=== PATIENT | female | born 1950 | race American Indian/Alaskan Native ===

== ENCOUNTER 2021-07-28 11:28 | Inpatient (IN) | payer MEDICARE ==
[2021-07-28] MEDS ORDERED: SODIUM CHLORIDE 0.9% 1000 ML IV SOLN IV ONE (11:52)
--- NOTE | 2021-07-28 11:57 | Emergency Department Report ---
ED General Adult HPI - General Chief complaint: Weakness Stated complaint: LOW BLOOD PRESSURE Time Seen by Provider: 07/28/21 11:52 Source: EMS Mode of arrival: Stretcher Limitations: Physical Limitation - History of Present Illness Initial comments: Patient is 70 years old female with history of end-stage renal disease on hemodialysis, hypertension, advanced dementia and Parkinson disease. Patient brought to the emergency room via EMS from a local dialysis center for evaluation of low blood pressure. EMS reported that dialysis center informed them that her initial blood pressure was 80/42. According to the dialysis center patient is not communicating. Upon arrival to the ER patient is alert however she is not communicating. Most of the history is from EMS and patient records. Sepsis protocol immediately initiated and patient started on normal saline. -: This morning - Related Data Allergies Allergy/AdvReac Type Severity Reaction Status Date / Time No Known Allergies Allergy Verified 07/28/21 11:44 ED Review of Systems ROS: Stated complaint: LOW BLOOD PRESSURE Other details as noted in HPI Comment: Unobtainable due to pts medical conditions ED Physical Exam - General Limitations: Physical Limitation General appearance: alert, in no apparent distress - Head Head exam: Present: atraumatic, normocephalic, normal inspection - ENT ENT exam: Present: mucous membranes dry - Neck Neck exam: Present: normal inspection, full ROM. Absent: tenderness, meningismus - Respiratory Respiratory exam: Present: rales. Absent: respiratory distress, wheezes, decreased breath sounds, prolonged expiratory - Cardiovascular Cardiovascular Exam: Present: regular rate, normal rhythm, normal heart sounds - GI/Abdominal GI/Abdominal exam: Present: soft. Absent: distended, tenderness, guarding, rebound, rigid, normal bowel sounds, diminished bowel sounds, organomegaly, mass, bruit, pulsatile mass - Back Exam Back exam: Absent: CVA tenderness (R), CVA tenderness (L) - Neurological Exam Neurological exam: Present: alert - Psychiatric Psychiatric exam: Present: flat affect - Skin Skin exam: Present: warm ED Course Vital Signs 07/28/21 07/28/21 07/28/21 11:43 12:06 12:15 Temperature 98.7 F Pulse Rate 84 79 86 Respiratory 12 18 Rate Blood Pressure 98/72 Blood Pressure 98/66 [Left] O2 Sat by Pulse 99 98 Oximetry 07/28/21 07/28/21 07/28/21 12:31 12:45 13:01 Temperature Pulse Rate 77 80 67 Respiratory 13 22 20 Rate Blood Pressure 70/50 95/65 99/68 Blood Pressure [Left] O2 Sat by Pulse 97 100 92 Oximetry 07/28/21 07/28/21 07/28/21 13:15 13:31 13:45 Temperature Pulse Rate 84 82 74 Respiratory 20 17 15 Rate Blood Pressure 99/68 108/69 108/69 Blood Pressure [Left] O2 Sat by Pulse 91 97 98 Oximetry 07/28/21 07/28/21 07/28/21 14:01 14:15 14:31 Temperature Pulse Rate 88 83 80 Respiratory 13 19 19 Rate Blood Pressure 106/70 106/70 122/79 Blood Pressure [Left] O2 Sat by Pulse 100 92 95 Oximetry 07/28/21 07/28/21 07/28/21 14:45 15:01 16:21 Temperature Pulse Rate 77 89 75 Respiratory 20 14 19 Rate Blood Pressure 122/79 126/79 116/72 Blood Pressure [Left] O2 Sat by Pulse 95 99 Oximetry 07/28/21 16:23 Temperature Pulse Rate Respiratory Rate Blood Pressure Blood Pressure [Left] O2 Sat by Pulse 97 Oximetry ED Medical Decision Making - Lab Data Result diagrams: 07/28/21 12:20 07/28/21 12:20 - Medical Decision Making Patient is 70 years old female with history of end-stage renal disease on hemodialysis, hypertension, advanced dementia and Parkinson disease. Patient brought to the emergency room via EMS from a local dialysis center for evaluati on of low blood pressure. EMS reported that dialysis center informed them that her initial blood pressure was 80/42. According to the dialysis center patient is not communicating. Upon arrival to the ER patient is alert however she is not communicating. Most of the history is from EMS and patient records. Sepsis protocol immediately initiated and patient started on normal saline. Patient received normal saline. Labs reviewed and is unremarkable except for chronic kidney function elevation. Potassium is unremarkable. Urinalysis showed significant UTI with white blood cells of more than 180. Patient received Rocephin 1 g IV. I discussed the patient with Dr. Sarabia, he agreed to admit the patient to medical service for further management. Critical Care Time: Yes Critical care time in (mins) excluding proc time.: 35 Critical care attestation.: If time is entered above; I have spent that time in minutes in the direct care of this critically ill patient, excluding procedure time. ED Disposition Clinical Impression: Acute hypotension, UTI (urinary tract infection) Disposition: 09 ADMITTED INPATIENT Is pt being admited?: Yes Condition: Stable
--- NOTE | 2021-07-28 12:36 | XRay Report ---
CHEST 1 VIEW 07/28/2021 12:15 PM INDICATION / CLINICAL INFORMATION: sepsis. COMPARISON: None available. FINDINGS: SUPPORT DEVICES: None. HEART / MEDIASTINUM: No significant abnormality. LUNGS / PLEURA: No significant pulmonary or pleural abnormality. No pneumothorax. ADDITIONAL FINDINGS: No significant additional findings. IMPRESSION: 1. No acute findings. Signer Name: Yeyo Carrera DO Signed: 07/28/2021 12:32 PM Workstation Name: [id number]
[2021-07-28 12:42] LABS: Basophils % (Auto) 1.3 % (0.0-1.8); Hematocrit 28.4 % (30.3-42.9); Hemoglobin 9.1 gm/dl (10.1-14.3); Lymphocytes # (Auto) 0.6 K/mm3 (1.2-5.4); Lymphocytes % (Auto) 16.2 % (13.4-35.0); Mean Corpuscular HGB Conc 32 % (30-34); Mean Corpuscular Volume 102 fl (79-97); Monocytes # (Auto) 0.4 K/mm3 (0.0-0.8); Monocytes % (Auto) 10.4 % (0.0-7.3); Platelet Count 132 K/mm3 (140-440); Red Cell Distribution Width 13.9 % (13.2-15.2)
[2021-07-28 13:05] LABS: Albumin 3.9 g/dL (3.9-5); Blood Urea Nitrogen 37 mg/dL (7-17); Calcium 9.2 mg/dL (8.4-10.2); Hemolysis Index 14
[2021-07-28 13:07] LABS: Alanine Aminotransferase < 5 units/L (7-56); BUN/Creatinine Ratio 4
[2021-07-28 13:45] LABS: Bacteria,Urine 4+ /HPF (Negative); Bilirubin,Urine NEG (Negative); Blood,Urine SM (Negative); Color,Urine Yellow (Yellow); Urobilinogen,Urine < 2.0 mg/dL (<2.0)
[2021-07-28 13:48] LABS: WBC,Urine > 182.0 /HPF (0.0-6.0)
[2021-07-28] MEDS ORDERED: cefTRIAXone/NS 1 GM/50 ML 1 GM/50 ML BAG IV ONE (13:52)
--- NOTE | 2021-07-28 16:01 | Cat Scan Report ---
CT ABDOMEN AND PELVIS WITHOUT CONTRAST HISTORY: ABDOMINAL PAIN. COMPARISON: None. TECHNIQUE: CT images of the abdomen and pelvis were obtained without administration of intravenous co ntrast. All CT scans at this location are performed using CT dose reduction for ALARA by means of au tomated exposure control. FINDINGS: Lungs/bones: Lung bases are clear. There are degenerative changes in the spine and pelvis with no ac [place] osseous abnormality. There is grade 1 anterolisthesis of L4 on L5. Abdomen/pelvis: Gallbladder is surgically absent. The liver is enlarged but otherwise unremarkable. T he spleen, pancreas, adrenals, and proximal GI tract appear unremarkable. There is bilateral renal at rophy with simple cyst in the mid to lower pole the right. Urinary bladder is unremarkable. Uterus is surgically absent. No pelvic free fluid. No acute colonic abnormality identified. The appendix is normal. IMPRESSION: 1. No acute abnormality identified. 2. Incidental findings as above. Signer Name: Kwesi Lara MD Signed: 07/28/2021 3:57 PM Workstation Name: [id number]
--- NOTE | 2021-07-28 22:53 | History and Physical Report ---
History of Present Illness Date of examination: 07/28/21 Date of admission: 07/28/2021 Chief complaint: Hypotension Sent from hemodialysis center History of present illness: 70-year-old female with history of end-stage renal disease on hemodialysis, hypertension, advanced dementia and Parkinson's disease sent from local hemodialysis center for evaluation of low blood pressure. Evaluated during the dialysis blood pressure dropped to 70/40 and was sent here for evaluation. Patient is slightly altered. Patient is alert but noncommunicative. No fever or chills. ED course: Patient continued to have low blood pressure and urinary tract infection. Patient was started on antibiotics and IV fluids to bring the blood pressure up. Patient immediately admitted for 24 hours to 48 hours. No fever or chills. Past History Past Medical History: ESRD, hypertension, other (Parkinson's disease, dementia) Past Surgical History: Other (Emergency room) Social history: full code (Lives in retirement), other Family history: hypertension Medications and Allergies Allergies Allergy/AdvReac Type Severity Reaction Status Date / Time No Known Allergies Allergy Verified 07/28/21 11:44 Home Medications Medication Instructions Recorded Confirmed Last Taken Type Dexamethasone 6 mg PO DAILY 07/29/21 07/29/21 Unknown History Dialyvite with Zinc Tablet 07/29/21 Unknown History Molnupiravir 400 mg PO BID 07/29/21 07/29/21 Unknown History Vitamin C 500 mg PO DAILY 07/29/21 07/29/21 Unknown History Vitamin D3 1,000 unit PO DAILY 07/29/21 07/29/21 Unknown History Review of Systems All systems: negative Cardiovascular: other (Low blood pressure) Neurological: memory loss, other (Rest tremors) Exam - Constitutional Vitals: Temp Pulse Resp BP Pulse Ox 99.3 F 86 26 H 104/64 95 07/28/21 20:20 07/28/21 20:20 07/28/21 20:20 07/28/21 20:20 07/28/21 20:20 General appearance: Present: no acute distress, well-nourished - EENT Eyes: Present: PERRL ENT: hearing intact, clear oral mucosa - Neck Neck: Present: supple, normal ROM - Respiratory Respiratory effort: normal Respiratory: bilateral: CTA - Cardiovascular Heart rate: 76 Rhythm: regular Heart Sounds: Present: S1 & S2. Absent: rub, click - Extremities Extremities: no ischemia, pulses intact, pulses symmetrical, No edema Peripheral Pulses: within normal limits - Abdominal General gastrointestinal: Present: soft, non-tender, non-distended, normal bowel sounds Female genitourinary: Present: normal - Integumentary Integumentary: Present: clear, warm, dry - Musculoskeletal Musculoskeletal: generalized weakness - Psychiatric Psychiatric: other (Alert but not oriented) - Neurologic Neurologic: CNII-XII intact, moves all extremities - Allied Health Allied health notes reviewed: nursing, case management Results - Labs CBC & Chem 7: 07/28/21 12:20 07/28/21 12:20 Labs: Laboratory Last Values WBC 3.4 K/mm3 (4.5-11.0) L 07/28/21 12:20 RBC 2.80 M/mm3 (3.65-5.03) L 07/28/21 12:20 Hgb 9.1 gm/dl (10.1-14.3) L 07/28/21 12:20 Hct 28.4 % (30.3-42.9) L 07/28/21 12:20 MCV 102 fl (79-97) H 07/28/21 12:20 MCH 33 pg (28-32) H 07/28/21 12:20 MCHC 32 % (30-34) 07/28/21 12:20 RDW 13.9 % (13.2-15.2) 07/28/21 12:20 Plt Count 132 K/mm3 (140-440) L 07/28/21 12:20 Lymph % (Auto) 16.2 % (13.4-35.0) 07/28/21 12:20 [place] % (Auto) 10.4 % (0.0-7.3) H 07/28/21 12:20 Eos % (Auto) 0.0 % (0.0-4.3) 07/28/21 12:20 Baso % (Auto) 1.3 % (0.0-1.8) 07/28/21 12:20 Lymph # (Auto) 0.6 K/mm3 (1.2-5.4) L 07/28/21 12:20 [place] # (Auto) 0.4 K/mm3 (0.0-0.8) 07/28/21 12:20 Eos # (Auto) 0.0 K/mm3 (0.0-0.4) 07/28/21 12:20 Baso # (Auto) 0.0 K/mm3 (0.0-0.1) 07/28/21 12:20 Seg Neutrophils % 72.1 % (40.0-70.0) H 07/28/21 12:20 Seg Neutrophils # 2.5 K/mm3 (1.8-7.7) 07/28/21 12:20 APTT 36.7 Sec. (24.2-36.6) H 07/28/21 12:20 Sodium 138 mmol/L (137-145) 07/28/21 12:20 Potassium 4.4 mmol/L (3.6-5.0) 07/28/21 12:20 Chloride 95.7 mmol/L (98-107) L 07/28/21 12:20 Carbon Dioxide 28 mmol/L (22-30) 07/28/21 12:20 Anion Gap 19 mmol/L 07/28/21 12:20 BUN 37 mg/dL (7-17) H 07/28/21 12:20 Creatinine 8.3 mg/dL (0.6-1.2) H 07/28/21 12:20 Estimated GFR 5 ml/min 07/28/21 12:20 BUN/Creatinine Ratio 4 % 07/28/21 12:20 Glucose 91 mg/dL (65-100) 07/28/21 12:20 Lactic Acid 1.40 mmol/L (0.7-2.0) 07/28/21 12:20 Calcium 9.2 mg/dL (8.4-10.2) 07/28/21 12:20 Total Bilirubin 0.20 mg/dL (0.1-1.2) 07/28/21 12:20 AST 33 units/L (5-40) 07/28/21 12:20 ALT < 5 units/L (7-56) L 07/28/21 12:20 Alkaline Phosphatase 93 units/L (35-129) 07/28/21 12:20 Total Protein 7.3 g/dL (6.3-8.2) 07/28/21 12:20 Albumin 3.9 g/dL (3.9-5) 07/28/21 12:20 Albumin/Globulin Ratio 1.1 % 07/28/21 12:20 Urine Color Yellow (Yellow) 07/28/21 Unknown Urine Turbidity Turbid (Clear) 07/28/21 Unknown Urine pH 6.0 (5.0-7.0) 07/28/21 Unknown Ur Specific [place] 1.014 (1.003-1.030) 07/28/21 Unknown Urine Protein 100 mg/dl mg/dL (Negative) 07/28/21 Unknown Urine Glucose (UA) Neg mg/dL (Negative) 07/28/21 Unknown Urine Ketones Tr mg/dL (Negative) 07/28/21 Unknown Urine Blood Sm (Negative) 07/28/21 Unknown Urine Nitrite Neg (Negative) 07/28/21 Unknown Urine Bilirubin Neg (Negative) 07/28/21 Unknown Urine Urobilinogen < 2.0 mg/dL (<2.0) 07/28/21 Unknown Ur Leukocyte Esterase Lg (Negative) 07/28/21 Unknown Urine WBC (Auto) > 182.0 /HPF (0.0-6.0) H 07/28/21 Unknown Urine RBC (Auto) 10.0 /HPF (0.0-6.0) 07/28/21 Unknown Urine Bacteria (Auto) 4+ /HPF (Negative) 07/28/21 Unknown Urine WBC Clumps 3+ /HPF 07/28/21 Unknown Short CBC 07/28/21 Range/Units 12:20 WBC 3.4 L (4.5-11.0) K/mm3 Hgb 9.1 L (10.1-14.3) gm/dl Hct 28.4 L (30.3-42.9) % Plt Count 132 L (140-440) K/mm3 BMP 07/28/21 12:20 Sodium 138 Potassium 4.4 Chloride 95.7 L Carbon Dioxide 28 BUN 37 H Creatinine 8.3 H Glucose 91 Calcium 9.2 Liver Function 07/28/21 Range/Units 12:20 Total Bilirubin 0.20 (0.1-1.2) mg/dL AST 33 (5-40) units/L ALT < 5 L (7-56) units/L Alkaline Phosphatase 93 (35-129) units/L Albumin 3.9 (3.9-5) g/dL Urine 07/28/21 Range/Units Unknown Urine Color Yellow (Yellow) Urine pH 6.0 (5.0-7.0) Ur Specific [place] 1.014 (1.003-1.030) Urine Protein 100 mg/dl (Negative) mg/dL Urine Glucose (UA) Neg (Negative) mg/dL Short CBC 07/28/21 Range/Units 12:20 WBC 3.4 L (4.5-11.0) K/mm3 Hgb 9.1 L (10.1-14.3) gm/dl Hct 28.4 L (30.3-42.9) % Plt Count 132 L (140-440) K/mm3 BMP 07/28/21 12:20 Sodium 138 Potassium 4.4 Chloride 95.7 L Carbon Dioxide 28 BUN 37 H Creatinine 8.3 H Glucose 91 Calcium 9.2 Liver Function 07/28/21 Range/Units 12:20 Total Bilirubin 0.20 (0.1-1.2) mg/dL AST 33 (5-40) units/L ALT < 5 L (7-56) units/L Alkaline Phosphatase 93 (35-129) units/L Albumin 3.9 (3.9-5) g/dL Urine 07/28/21 Range/Units Unknown Urine Color Yellow (Yellow) Urine pH 6.0 (5.0-7.0) Ur Specific [place] 1.014 (1.003-1.030) Urine Protein 100 mg/dl (Negative) mg/dL Urine Glucose (UA) Neg (Negative) mg/dL Microbiology: Microbiology 07/28/21 13:07 Peripheral/Venous Blood Culture - Preliminary Culture in Progress 07/28/21 13:07 Peripheral/Venous Blood Culture - Preliminary Culture in Progress - Imaging and Cardiology EKG: report reviewed (Sinus rhythm no acute ST-T wave changes) Chest x-ray: report reviewed (No acute findings) Assessment and Plan Advance Directives: Yes (Full code) VTE prophylaxis?: Chemical Plan of care discussed with patient/family: Yes - Patient Problems (1) SIRS (systemic inflammatory response syndrome) Current Visit: Yes Status: Acute Plan to address problem: Patient on IV ceftriaxone for urinary tract infection Urine WBCs more than 180. (2) Acute hypotension Current Visit: Yes Status: Acute Plan to address problem: IV fluids for now Possible increase ultrafiltration (3) UTI (urinary tract infection) Current Visit: Yes Status: Acute Qualifiers: Urinary tract infection type: acute cystitis Plan to address problem: Initiated on IV ceftriaxone every 24 hours pending urine cultures (4) End stage renal disease Current Visit: Yes Status: Chronic Plan to address problem: Continue hemodialysis as per schedule Nephrology consulted (5) Anemia Current Visit: Yes Status: Chronic Qualifiers: Anemia type: due to chronic kidney disease Chronic kidney disease stage: on chronic dialysis Qualified Code(s): N18.6 - End stage renal disease; D63.1 - Anemia in chronic kidney disease; Z99.2 - Dependence on renal dialysis Plan to address problem: Epogen as per nephrology (6) DVT prophylaxis Current Visit: Yes Status: Acute Plan to address problem: On heparin and GI prophylaxis (7) Advance care planning Current Visit: Yes Status: Acute Plan to address problem: Disease education conducted, care plan discussed, diagnosis, prognosis discussed. Patient is full code. Patient acknowledges understanding and agreement with care plan. +30 minutes.
[2021-07-28] MEDS ORDERED: MORPHINE 2 MG/1 ML INJ IV PRN (22:55)
[2021-07-28] MEDS ORDERED: ONDANSETRON 4 MG/2 ML INJ IV PRN (22:55)
[2021-07-28] MEDS: HEPARIN 5,000 UNIT/1 ML VIAL SUB-Q SCH (23:51)
[2021-07-29] MEDS: ACETAMINOPHEN 325 MG TAB PO PRN (06:30)
[2021-07-29 07:38] LABS: Basophils % (Auto) 0.4 % (0.0-1.8); Hematocrit 25.8 % (30.3-42.9); Hemoglobin 8.5 gm/dl (10.1-14.3); Lymphocytes # (Auto) 0.6 K/mm3 (1.2-5.4); Lymphocytes % (Auto) 9.9 % (13.4-35.0); Mean Corpuscular HGB Conc 33 % (30-34); Mean Corpuscular Volume 101 fl (79-97); Monocytes # (Auto) 0.4 K/mm3 (0.0-0.8); Monocytes % (Auto) 6.3 % (0.0-7.3); Platelet Count 123 K/mm3 (140-440); Red Blood Count 2.55 M/mm3 (3.65-5.03); Red Cell Distribution Width 13.5 % (13.2-15.2)
--- NOTE | 2021-07-29 09:07 | Progress Note ---
Assessment and Plan Assessment and plan: #Systemic inflammatory response syndrome-improving #Urinary tract infection -WBC count wnl, tachycardia, tachypnea -Urine WBCs >180, 4+ bacteria, lg LE; will treat due to patient mental status -continue rocephin x 3 doses -BCx collected, growth pending #Acute hypotension-resolved -BP now wnl, will continue IVFs with caution #End stage renal disease requiring HD -HD on TTS schedule -Nephrology following, assistance appreciated #Anemia-stable -likely secondary to ESRD -epogen with dialysis -will transfuse for Hgb less than 7 #History of dementia #History of Parkinson's disease -Stable -Follow-up with neurology outpatient History Interval history: No acute events overnight per nursing. Patient alert and attempts to speak but nothing comes out. She denied pain with head shake. No discomfort at this time. Hospitalist Physical - Physical exam Narrative exam: GENERAL: Thin elderly woman. In no acute distress. HEENT: NC in place @2lpm NECK: Supple. CHEST/LUNGS: CTAB on room air HEART/CARDIOVASCULAR: RRR. No murmur, rubs or gallops appreciated. ABDOMEN: +BS. NT/ND. SKIN: No rashes noted. NEURO: Unable to assess. MUSCULOSKELETAL: No joint effusion EXTREMITIES: No cyanosis, clubbing or edema. PSYCH: Unable to assess - Constitutional Vitals: Temp Pulse Resp BP Pulse Ox 99.3 F 67 15 111/70 96 07/28/21 20:20 07/29/21 01:53 07/29/21 01:31 07/29/21 01:31 07/29/21 01:53 General appearance: Present: no acute distress, well-nourished Results - Labs CBC & Chem 7: 07/29/21 06:37 07/28/21 12:20 Labs: Laboratory Last Values WBC 6.4 K/mm3 (4.5-11.0) 07/29/21 06:37 RBC 2.55 M/mm3 (3.65-5.03) L 07/29/21 06:37 Hgb 8.5 gm/dl (10.1-14.3) L 07/29/21 06:37 Hct 25.8 % (30.3-42.9) L 07/29/21 06:37 MCV 101 fl (79-97) H 07/29/21 06:37 MCH 33 pg (28-32) H 07/29/21 06:37 MCHC 33 % (30-34) 07/29/21 06:37 RDW 13.5 % (13.2-15.2) 07/29/21 06:37 Plt Count 123 K/mm3 (140-440) L 07/29/21 06:37 Lymph % (Auto) 9.9 % (13.4-35.0) L 07/29/21 06:37 [place] % (Auto) 6.3 % (0.0-7.3) 07/29/21 06:37 Eos % (Auto) 0.0 % (0.0-4.3) 07/29/21 06:37 Baso % (Auto) 0.4 % (0.0-1.8) 07/29/21 06:37 Lymph # (Auto) 0.6 K/mm3 (1.2-5.4) L 07/29/21 06:37 [place] # (Auto) 0.4 K/mm3 (0.0-0.8) 07/29/21 06:37 Eos # (Auto) 0.0 K/mm3 (0.0-0.4) 07/29/21 06:37 Baso # (Auto) 0.0 K/mm3 (0.0-0.1) 07/29/21 06:37 Seg Neutrophils % 83.4 % (40.0-70.0) H 07/29/21 06:37 Seg Neutrophils # 5.3 K/mm3 (1.8-7.7) 07/29/21 06:37 APTT 36.7 Sec. (24.2-36.6) H 07/28/21 12:20 Sodium 138 mmol/L (137-145) 07/28/21 12:20 Potassium 4.4 mmol/L (3.6-5.0) 07/28/21 12:20 Chloride 95.7 mmol/L (98-107) L 07/28/21 12:20 Carbon Dioxide 28 mmol/L (22-30) 07/28/21 12:20 Anion Gap 19 mmol/L 07/28/21 12:20 BUN 37 mg/dL (7-17) H 07/28/21 12:20 Creatinine 8.3 mg/dL (0.6-1.2) H 07/28/21 12:20 Estimated GFR 5 ml/min 07/28/21 12:20 BUN/Creatinine Ratio 4 % 07/28/21 12:20 Glucose 91 mg/dL (65-100) 07/28/21 12:20 POC Glucose 80 mg/dL (70-105) 07/29/21 06:50 Lactic Acid 1.40 mmol/L (0.7-2.0) 07/28/21 12:20 Calcium 9.2 mg/dL (8.4-10.2) 07/28/21 12:20 Total Bilirubin 0.20 mg/dL (0.1-1.2) 07/28/21 12:20 AST 33 units/L (5-40) 07/28/21 12:20 ALT < 5 units/L (7-56) L 07/28/21 12:20 Alkaline Phosphatase 93 units/L (35-129) 07/28/21 12:20 Total Protein 7.3 g/dL (6.3-8.2) 07/28/21 12:20 Albumin 3.9 g/dL (3.9-5) 07/28/21 12:20 Albumin/Globulin Ratio 1.1 % 07/28/21 12:20 Urine Color Yellow (Yellow) 07/28/21 Unknown Urine Turbidity Turbid (Clear) 07/28/21 Unknown Urine pH 6.0 (5.0-7.0) 07/28/21 Unknown Ur Specific [place] 1.014 (1.003-1.030) 07/28/21 Unknown Urine Protein 100 mg/dl mg/dL (Negative) 07/28/21 Unknown Urine Glucose (UA) Neg mg/dL (Negative) 07/28/21 Unknown Urine Ketones Tr mg/dL (Negative) 07/28/21 Unknown Urine Blood Sm (Negative) 07/28/21 Unknown Urine Nitrite Neg (Negative) 07/28/21 Unknown Urine Bilirubin Neg (Negative) 07/28/21 Unknown Urine Urobilinogen < 2.0 mg/dL (<2.0) 07/28/21 Unknown Ur Leukocyte Esterase Lg (Negative) 07/28/21 Unknown Urine WBC (Auto) > 182.0 /HPF (0.0-6.0) H 07/28/21 Unknown Urine RBC (Auto) 10.0 /HPF (0.0-6.0) 07/28/21 Unknown Urine Bacteria (Auto) 4+ /HPF (Negative) 07/28/21 Unknown Urine WBC Clumps 3+ /HPF 07/28/21 Unknown Microbiology: Microbiology 07/28/21 13:07 Peripheral/Venous Blood Culture - Preliminary Culture in Progress 07/28/21 13:07 Peripheral/Venous Blood Culture - Preliminary Culture in Progress Muniz/IV: Voiding Method Incontinent Active Medications - Current Medications Current Medications: Generic Name Dose Route Start Last Admin Trade Name Freq PRN Reason Stop Dose Admin Acetaminophen 650 mg 07/28/21 22:55 07/29/21 06:30 Acetaminophen 325 Mg Tab PO 650 mg Q4H PRN Administration Pain MILD(1-3)/Fever >100.5/VALLE Dexamethasone 6 mg 07/29/21 10:00 Dexamethasone 2 Mg Tab PO DAILY [facility] Heparin Sodium (Porcine) 5,000 unit 07/28/21 23:15 07/28/21 23:51 Heparin 5,000 Unit/1 Ml Vial SUB-Q 5,000 unit Q12HR KALEB Administration Ceftriaxone Sodium 1 gm in 50 mls @ 100 mls/hr 07/29/21 10:00 Rocephin/Ns 1 Gm/50 Ml IV Q24H [facility] Protocol Morphine Sulfate 2 mg 07/28/21 22:55 Morphine 2 Mg/1 Ml Inj IV Q4H PRN Pain, Moderate (4-6) Ondansetron HCl 4 mg 07/28/21 22:55 Ondansetron 4 Mg/2 Ml Inj IV Q8H PRN Nausea And Vomiting Sodium Chloride 10 ml 07/28/21 23:00 07/28/21 23:55 Sodium Chloride 0.9% 10 Ml Flush Syringe IV 10 ml BID KALEB Administration Sodium Chloride 10 ml 07/28/21 22:55 Sodium Chloride 0.9% 10 Ml Flush Syringe IV PRN PRN LINE FLUSH
[2021-07-29] MEDS: DEXAMETHASONE 2 MG TAB PO SCH (09:48)
[2021-07-29] MEDS: HEPARIN 5,000 UNIT/1 ML VIAL SUB-Q SCH ×2 (09:48→21:33)
[2021-07-29] MEDS ORDERED: DEXAMETHASONE 6 MG PO SCH (10:00)
[2021-07-29] MEDS: cefTRIAXone/NS 1 GM/50 ML 1 GM/50 ML BAG IV SCH (11:00)
--- NOTE | 2021-07-29 12:25 | Consultation ---
History of Present Illness - Reason for Consult Consult date: 07/29/21 end stage renal disease Requesting physician: VELMA SOLORZANO - History of Present Illness 70-year-old female with history of end-stage renal disease on hemodialysis, hypertension, advanced dementia and Parkinson's disease sent from local hemodialysis center for evaluation of low blood pressure. Evaluated during the dialysis blood pressure dropped to 70/40 and was sent here for evaluation. Patient is slightly altered. Patient is alert but noncommunicative. No fever or chills. ED course: Patient continued to have low blood pressure and urinary tract infection. Patient was started on antibiotics and IV fluids to bring the blood pressure up. Patient immediately admitted for 24 hours to 48 hours. No fever or chills. Patient is somewhat confused. Unable to get any additional information from patient. Information obtained from patient's current chart. Past History Past Medical History: ESRD, hypertension, other (Parkinson's disease, dementia) Past Surgical History: Other (Emergency room) Social history: full code (Lives in assisted), other Family history: hypertension Medications and Allergies Allergies Allergy/AdvReac Type Severity Reaction Status Date / Time No Known Allergies Allergy Verified 07/28/21 11:44 Home Medications Medication Instructions Recorded Confirmed Last Taken Type Dexamethasone 6 mg PO DAILY 07/29/21 07/29/21 Unknown History Dialyvite with Zinc Tablet 07/29/21 Unknown History Molnupiravir 400 mg PO BID 07/29/21 07/29/21 Unknown History Vitamin C 500 mg PO DAILY 07/29/21 07/29/21 Unknown History Vitamin D3 1,000 unit PO DAILY 07/29/21 07/29/21 Unknown History Active Meds: Active Medications Acetaminophen (Acetaminophen 325 Mg Tab) 650 mg PO Q4H PRN PRN Reason: Pain MILD(1-3)/Fever >100.5/VALLE Last Admin: 07/29/21 06:30 Dose: 650 mg Dexamethasone (Dexamethasone 2 Mg Tab) 6 mg PO DAILY KALEB Last Admin: 07/29/21 09:48 Dose: 6 mg Heparin Sodium (Porcine) (Heparin 5,000 Unit/1 Ml Vial) 5,000 unit SUB-Q Q12HR KALEB Last Admin: 07/29/21 09:48 Dose: 5,000 unit Ceftriaxone Sodium (Rocephin/Ns 1 Gm/50 Ml) 1 gm in 50 mls @ 100 mls/hr IV Q24H [facility]; Protocol Last Admin: 07/29/21 11:00 Dose: 100 mls/hr Morphine Sulfate (Morphine 2 Mg/1 Ml Inj) 2 mg IV Q4H PRN PRN Reason: Pain, Moderate (4-6) Ondansetron HCl (Ondansetron 4 Mg/2 Ml Inj) 4 mg IV Q8H PRN PRN Reason: Nausea And Vomiting Sodium Chloride (Sodium Chloride 0.9% 10 Ml Flush Syringe) 10 ml IV BID [facility] Last Admin: 07/29/21 09:49 Dose: 10 ml Sodium Chloride (Sodium Chloride 0.9% 10 Ml Flush Syringe) 10 ml IV PRN PRN PRN Reason: LINE FLUSH Review of Systems ROS unobtainable: due to mental status Exam - Vital Signs Vital signs: Vital Signs Temp Pulse BP Pulse Ox 98.7 F 84 98/66 99 07/28/21 11:43 07/28/21 11:43 07/28/21 11:43 07/28/21 11:43 - General Appearance General appearance: chronically ill, frail, other (-Swiss female) EENT: ATNC, PERRL Neck: Present: neck supple Respiratory: Clear to Ascultation Heart: regular, normal heart rate Gastrointestinal: Present: normal, normoactive bowel sounds Integumentary: no rash, other (No edema. AV fistula left forearm. Good bruit and thrill. Sutures noted) Results - Lab Results 07/29/21 06:37 07/28/21 12:20 Most recent lab results Calcium 9.2 mg/dL (8.4-10.2) 07/28/21 12:20 Assessment and Plan Impression * End-stage renal disease on maintenance hemodialysis * Hypotension * Dementia * History of Parkinson's disease * Possible COVID-19 infection * Anemia secondary to ESRD * Pyuria Recommendations * Shall schedule patient for hemodialysis treatment for tomorrow and keep her on MWF schedule for now * Patient does have a fistula in her left forearm which has a good bruit and thrill. It appears that she had a fistulogram done recently. Sutures are still present. I do not know the details. Patient also not able to tell me which dialysis clinic she goes to * Patient is currently on Molnupiravir . Suspect due to recent COVID infection. I do not see any results of COVID-19 in the chart * Administer Epogen with dialysis * Binders with meals * Adjust diet and meds for ESRD state * Avoid nephrotoxins * No IV, BP or venipuncture in her access arm * Thank you very much for the consultation. Shall follow along with you
[2021-07-29] MEDS ORDERED: SODIUM CHLORIDE 0.9% 100 ML IV PRN (12:28)
[2021-07-29] MEDS ORDERED: VANCOMYCIN 1,250 MG in SODIUM CHLORIDE 0.9% 250ML 250 ML IV ONE (18:45)
[2021-07-29] MEDS ORDERED: VANCOMYCIN PHARMACY TO DOSE IV SCH (19:00)
[2021-07-30 07:01] LABS: Hematocrit 27.5 % (30.3-42.9); Hemoglobin 9.1 gm/dl (10.1-14.3); Mean Corpuscular HGB Conc 33 % (30-34); Mean Corpuscular Volume 100 fl (79-97); Platelet Count 170 K/mm3 (140-440); Red Blood Count 2.75 M/mm3 (3.65-5.03); Red Cell Distribution Width 13.9 % (13.2-15.2)
[2021-07-30 07:21] LABS: Calcium 8.8 mg/dL (8.4-10.2)
--- NOTE | 2021-07-30 07:28 | Progress Note ---
Assessment and Plan Assessment and plan: #Systemic inflammatory response syndrome-improving #Urinary tract infection #Gram positive bacteremia -WBC count wnl, tachycardia, tachypnea -Urine WBCs >180, 4+ bacteria, lg LE; will treat due to patient mental status -COVID PCR pending -continue rocephin x 3 doses (last day 07/31) -BCx 07/30: 1/4 GPC in clusters -repeat blood cultures ordered -vancomycin started empirically #Acute hypotension-resolved -BP now wnl, will continue IVFs with caution #End stage renal disease requiring HD -HD on TTS schedule -Nephrology following, assistance appreciated #Anemia-stable -likely secondary to ESRD -epogen with dialysis -will transfuse for Hgb less than 7 #History of dementia #History of Parkinson's disease -Stable -Follow-up with neurology outpatient History Interval history: No acute events overnight per nursing. Patient alert and attempts to speak but speech does not make sense. No discomfort at this time. Hospitalist Physical - Physical exam Narrative exam: GENERAL: Thin elderly woman. In no acute distress. HEENT: NC in place @2lpm NECK: Supple. CHEST/LUNGS: CTAB on supplemental O2 HEART/CARDIOVASCULAR: RRR. No murmur, rubs or gallops appreciated. ABDOMEN: +BS. NT/ND. SKIN: No rashes noted. NEURO: Unable to assess. MUSCULOSKELETAL: No joint effusion EXTREMITIES: LUE AVF w/ thrill. No cyanosis, clubbing or edema. PSYCH: Unable to assess - Constitutional Vitals: Temp Pulse Resp BP Pulse Ox 97.8 F 105 H 16 157/99 97 07/29/21 21:13 07/29/21 21:13 07/29/21 21:13 07/29/21 21:13 07/29/21 21:13 General appearance: Present: no acute distress, well-nourished Results - Labs CBC & Chem 7: 07/30/21 06:40 07/30/21 06:40 Labs: Laboratory Last Values WBC 9.0 K/mm3 (4.5-11.0) 07/30/21 06:40 RBC 2.75 M/mm3 (3.65-5.03) L 07/30/21 06:40 Hgb 9.1 gm/dl (10.1-14.3) L 07/30/21 06:40 Hct 27.5 % (30.3-42.9) L 07/30/21 06:40 MCV 100 fl (79-97) H 07/30/21 06:40 MCH 33 pg (28-32) H 07/30/21 06:40 MCHC 33 % (30-34) 07/30/21 06:40 RDW 13.9 % (13.2-15.2) 07/30/21 06:40 Plt Count 170 K/mm3 (140-440) 07/30/21 06:40 Lymph % (Auto) 9.9 % (13.4-35.0) L 07/29/21 06:37 [place] % (Auto) 6.3 % (0.0-7.3) 07/29/21 06:37 Eos % (Auto) 0.0 % (0.0-4.3) 07/29/21 06:37 Baso % (Auto) 0.4 % (0.0-1.8) 07/29/21 06:37 Lymph # (Auto) 0.6 K/mm3 (1.2-5.4) L 07/29/21 06:37 [place] # (Auto) 0.4 K/mm3 (0.0-0.8) 07/29/21 06:37 Eos # (Auto) 0.0 K/mm3 (0.0-0.4) 07/29/21 06:37 Baso # (Auto) 0.0 K/mm3 (0.0-0.1) 07/29/21 06:37 Seg Neutrophils % 83.4 % (40.0-70.0) H 07/29/21 06:37 Seg Neutrophils # 5.3 K/mm3 (1.8-7.7) 07/29/21 06:37 APTT 36.7 Sec. (24.2-36.6) H 07/28/21 12:20 Sodium 144 mmol/L (137-145) 07/30/21 06:40 Potassium 4.8 mmol/L (3.6-5.0) 07/30/21 06:40 Chloride 106.2 mmol/L (98-107) 07/30/21 06:40 Carbon Dioxide 23 mmol/L (22-30) 07/30/21 06:40 Anion Gap 20 mmol/L 07/30/21 06:40 BUN 54 mg/dL (7-17) H 07/30/21 06:40 Creatinine 10.0 mg/dL (0.6-1.2) H 07/30/21 06:40 Estimated GFR 5 ml/min 07/30/21 06:40 BUN/Creatinine Ratio 5 % 07/30/21 06:40 Glucose 100 mg/dL (65-100) 07/30/21 06:40 POC Glucose 80 mg/dL (70-105) 07/29/21 06:50 Lactic Acid 1.40 mmol/L (0.7-2.0) 07/28/21 12:20 Calcium 8.8 mg/dL (8.4-10.2) 07/30/21 06:40 Total Bilirubin 0.20 mg/dL (0.1-1.2) 07/28/21 12:20 AST 33 units/L (5-40) 07/28/21 12:20 ALT < 5 units/L (7-56) L 07/28/21 12:20 Alkaline Phosphatase 93 units/L (35-129) 07/28/21 12:20 Total Protein 7.3 g/dL (6.3-8.2) 07/28/21 12:20 Albumin 3.9 g/dL (3.9-5) 07/28/21 12:20 Albumin/Globulin Ratio 1.1 % 07/28/21 12:20 Urine Color Yellow (Yellow) 07/28/21 Unknown Urine Turbidity Turbid (Clear) 07/28/21 Unknown Urine pH 6.0 (5.0-7.0) 07/28/21 Unknown Ur Specific [place] 1.014 (1.003-1.030) 07/28/21 Unknown Urine Protein 100 mg/dl mg/dL (Negative) 07/28/21 Unknown Urine Glucose (UA) Neg mg/dL (Negative) 07/28/21 Unknown Urine Ketones Tr mg/dL (Negative) 07/28/21 Unknown Urine Blood Sm (Negative) 07/28/21 Unknown Urine Nitrite Neg (Negative) 07/28/21 Unknown Urine Bilirubin Neg (Negative) 07/28/21 Unknown Urine Urobilinogen < 2.0 mg/dL (<2.0) 07/28/21 Unknown Ur Leukocyte Esterase Lg (Negative) 07/28/21 Unknown Urine WBC (Auto) > 182.0 /HPF (0.0-6.0) H 07/28/21 Unknown Urine RBC (Auto) 10.0 /HPF (0.0-6.0) 07/28/21 Unknown Urine Bacteria (Auto) 4+ /HPF (Negative) 07/28/21 Unknown Urine WBC Clumps 3+ /HPF 07/28/21 Unknown Microbiology: Microbiology 07/28/21 13:07 Peripheral/Venous Blood Culture - Preliminary NO GROWTH AFTER 24 HOURS 07/28/21 13:07 Peripheral/Venous Blood Culture - Preliminary [place]/IV: Voiding Method Incontinent Active Medications - Current Medications Current Medications: Generic Name Dose Route Start Last Admin Trade Name Freq PRN Reason Stop Dose Admin Acetaminophen 650 mg 07/28/21 22:55 07/29/21 06:30 Acetaminophen 325 Mg Tab PO 650 mg Q4H PRN Administration Pain MILD(1-3)/Fever >100.5/VALLE Dexamethasone 6 mg 07/29/21 10:00 07/29/21 09:48 Dexamethasone 2 Mg Tab PO 6 mg DAILY KALEB Administration Epoetin Nicholas-epbx 10,000 unit 07/29/21 12:28 Epoetin Nicholas-Epbx 10,000 Unit/1 Ml Vial IV ANIL PRN hemodialysis Heparin Sodium (Porcine) 5,000 unit 07/28/21 23:15 07/29/21 21:33 Heparin 5,000 Unit/1 Ml Vial SUB-Q 5,000 unit Q12HR KALEB Administration Ceftriaxone Sodium 1 gm in 50 mls @ 100 mls/hr 07/29/21 10:00 07/29/21 11:00 Rocephin/Ns 1 Gm/50 Ml IV 100 mls/hr Q24H KALEB Administration Protocol Sodium Chloride 100 mls @ 999 mls/hr 07/29/21 12:28 Nacl 0.9% IV ANIL PRN Hypotension Morphine Sulfate 2 mg 07/28/21 22:55 Morphine 2 Mg/1 Ml Inj IV Q4H PRN Pain, Moderate (4-6) Ondansetron HCl 4 mg 07/28/21 22:55 Ondansetron 4 Mg/2 Ml Inj IV Q8H PRN Nausea And Vomiting Sodium Chloride 10 ml 07/28/21 23:00 07/29/21 21:56 Sodium Chloride 0.9% 10 Ml Flush Syringe IV 10 ml BID KALEB Administration Sodium Chloride 10 ml 07/28/21 22:55 Sodium Chloride 0.9% 10 Ml Flush Syringe IV PRN PRN LINE FLUSH Nutrition/Malnutrition Assess - Dietary Evaluation Nutrition/Malnutrition Findings: Nutrition Notes Start: 07/29/21 15:43 Freq: Status: Active Protocol: Document 07/29/21 15:43 MAGDALENO (Rec: 07/29/21 16:08 MAGDALENO [id number]) Nutrition Notes Need for Assessment generated from: MD Order Initial or Follow up Assessment Current Diagnosis CKD (stage V CKD),Hypertension Other Pertinent Diagnosis ESRD+HD, UTI, Pyuria, Anemia, COVID-19 pui, SIRS, Hypotension, ... Current Diet Renal Diet + D Suppl (since B 07/29). Labs/Tests 07/28: Cl 95.7, BUN 37, Crea 8 .3. Pertinent Medications 07/29: Nutritionally unremarkable. 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 Weight Status Appropriate Subjective/Other Information RD consult for Poor Oral Intake and Dietary Supplementation assessments. Pt's PO intake of meals has been Poor (25%), according to ADL notes. I will prescribe Dietary Supplements to compensate for poor PO intake of meals. Pt is on Nasal Cannula, O2 saturation @ 96%, according to Physical Assessment History notes. Pt was lethargic and failed bedside swallow screen on , according to Progress notes. I strongly recommend MORPHOLOGIST evaluation to be performed to prevent aspiration and to facilitate PO intake of meals with mechanical/textural adaptations. Percent of energy/protein needs met: Prescribed Renal Diet provides for energy/protein needs (2, 072 Kcal/77 g) during LOS; additionally, Dietary Supplements will compensate for possible poor or insufficient PO intake of meals with 850 Kcal and 38 g of protein. Burn Absent Trauma Absent GI Symptoms None Food Allergy No Skin Integrity/Comment Assessment WNL. Current % PO Poor (25-49%) Minimum of two criteria No Fluid Accumulation N/A Reduced Reiki Practitioner Strength N/A (non-severe) Protein-Calorie Malnutrition N\A #1 Nutrition Diagnosis Inadequate protein-energy intake Etiology Uncertain. As Evidenced by Signs and Symptoms Pt's PO intake of meals has been Poor (25%), according to ADL notes. Is patient on ventilator? No Is Patient Ambulatory and/or Out of Bed No REE-(Sisters-St. Jeor-confined to bed) 1313.928 Kcal/Kg value to use for calculation 25 Approximate Energy Requirements Using 1450 kcal/Kg Calculation Used for Recommendations Kcal/kg Additional Notes Protein: >1.2 g/Kg ABW; >70 g/ day. Fluids: 1 ml/Kcal, or as per MD. Nutrition Intervention Change Diet Order: Continue Renal Diet. Add Supplement/Snack (indicate name/kcal Start 8 fl oz Nepro w/ /protein ) CARBSTEADY; BID. Provides kCal: 850 Provides Protein (gm) 38 Goal #1 Compensate, through dietary supplementation, for possible poor or insufficient PO intake of meals during LOS. Goal #2 Maintain body weight within +/ -3% of admission body weight during LOS. Follow-Up By: 08/06/21 Additional Comments Continue monitoring food tolerance, %PO intake of meals , and BM.
[2021-07-30] MEDS: DEXAMETHASONE 2 MG TAB PO SCH (09:00)
[2021-07-30] MEDS: HEPARIN 5,000 UNIT/1 ML VIAL SUB-Q SCH ×2 (09:00→23:44)
--- NOTE | 2021-07-30 10:33 | Progress Note ---
Assessment and Plan - Patient Problems (1) Encephalopathy Current Visit: Yes Status: Acute Plan to address problem: Probably toxic encephalopathy. Treat underlying condition and continue monitoring (2) Acute hypotension Current Visit: Yes Status: Acute Plan to address problem: Hypotension on dialysis. Rule out sepsis. Cultures pending on empiric antib iotics for presumed UTI. Blood pressure has responded to volume resuscitation. (3) UTI (urinary tract infection) Current Visit: Yes Status: Acute Qualifiers: Urinary tract infection type: acute cystitis Plan to address problem: Continue antibiotics. Follow-up cultures (4) Anemia Current Visit: Yes Status: Chronic Qualifiers: Anemia type: due to chronic kidney disease Chronic kidney disease stage: on chronic dialysis Qualified Code(s): N18.6 - End stage renal disease; D63.1 - Anemia in chronic kidney disease; Z99.2 - Dependence on renal dialysis Plan to address problem: Give erythropoietin on dialysis (5) End stage renal disease Current Visit: Yes Status: Chronic Plan to address problem: Hemodialysis on a Friday, and Friday schedule. We will dialyze again tomorrow (6) Dementia Current Visit: Yes Status: Acute Subjective Date of service: 07/30/21 Principal diagnosis: End-stage renal disease Interval history: Patient was sent from dialysis clinic due to hypotension. Patient also with altered mental status with findings suggestive of a urinary tract infection. On empiric antibiotics and received intravenous fluids with improvement in blood pressure. She has been screened for COVID-19 and result is pending. 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 I reviewed multidisciplinary notes and discussed with staff and physicians as needed.. Objective - Lab 07/30/21 06:40 07/30/21 06:40 Most recent lab results Calcium 8.8 mg/dL (8.4-10.2) 07/30/21 06:40 Medications & Allergies - Medications Allergies/Adverse Reactions: Allergies No Known Allergies Allergy (Verified 07/28/21 11:44) Home Medications: Home Medications Medication Instructions Recorded Confirmed Last Taken Type Dexamethasone 6 mg PO DAILY 07/29/21 07/29/21 Unknown History Dialyvite with Zinc Tablet 07/29/21 Unknown History Molnupiravir 400 mg PO BID 07/29/21 07/29/21 Unknown History Vitamin C 500 mg PO DAILY 07/29/21 07/29/21 Unknown History Vitamin D3 1,000 unit PO DAILY 07/29/21 07/29/21 Unknown History Active Medications: Generic Name Dose Route Start Last Admin Trade Name Richardq PRN Reason Stop Dose Admin Acetaminophen 650 mg 07/28/21 22:55 07/29/21 06:30 Acetaminophen 325 Mg Tab PO 650 mg Q4H PRN Administration Pain MILD(1-3)/Fever >100.5/VALLE Dexamethasone 6 mg 07/29/21 10:00 07/30/21 09:00 Dexamethasone 2 Mg Tab PO 08/07/21 10:01 6 mg DAILY KALEB Administration Epoetin Nicholas-epbx 10,000 unit 07/29/21 12:28 Epoetin Nicholas-Epbx 10,000 Unit/1 Ml Vial IV ANIL PRN hemodialysis Heparin Sodium (Porcine) 5,000 unit 07/28/21 23:15 07/30/21 09:00 Heparin 5,000 Unit/1 Ml Vial SUB-Q 5,000 unit Q12HR KALEB Administration Ceftriaxone Sodium 1 gm in 50 mls @ 100 mls/hr 07/29/21 10:00 07/29/21 11:00 Rocephin/Ns 1 Gm/50 Ml IV 100 mls/hr Q24H KALEB Administration Protocol Sodium Chloride 100 mls @ 999 mls/hr 07/29/21 12:28 Nacl 0.9% IV ANIL PRN Hypotension Morphine Sulfate 2 mg 07/28/21 22:55 Morphine 2 Mg/1 Ml Inj IV Q4H PRN Pain, Moderate (4-6) Ondansetron HCl 4 mg 07/28/21 22:55 Ondansetron 4 Mg/2 Ml Inj IV Q8H PRN Nausea And Vomiting Sodium Chloride 10 ml 07/28/21 23:00 07/29/21 21:56 Sodium Chloride 0.9% 10 Ml Flush Syringe IV 10 ml BID KALEB Administration Sodium Chloride 10 ml 07/28/21 22:55 Sodium Chloride 0.9% 10 Ml Flush Syringe IV PRN PRN LINE FLUSH
[2021-07-30] MEDS: cefTRIAXone/NS 1 GM/50 ML 1 GM/50 ML BAG IV SCH (12:34)
[2021-07-30 15:23] LABS: Hepatitis B Surface Antigen Non-Reactive (Negative); Hepatitis C Virus Antibody Non-Reactive (NonReactive)
--- NOTE | 2021-07-30 22:29 | Event Note ---
Patient is being followed by my colleague, known to their service and hence we will sign off the case please call if needed
--- NOTE | 2021-07-31 08:17 | Progress Note ---
Assessment and Plan Assessment and plan: #Systemic inflammatory response syndrome-improving #Urinary tract infection #Gram positive bacteremia #COVID-19 infection -WBC count wnl, tachycardia, tachypnea resolved -Urine WBCs >180, 4+ bacteria, lg LE; will treat due to patient mental status -COVID PCR positive: inflammatory markers ordered -continue rocephin x 3 doses (last day 07/31) -BCx 07/28: 1/4 coagulase-negative staph -BCx 07/30: No growth to date -continue vancomycin for now -Infectious Disease consulted, assistance appreciated #Acute hypoxic respiratory failure -likely secondary to COVID -continue dexamethasone and supplemental O2 -CXR ordered -will wean O2 as tolerated, goal SpO2 >88% -prone patient as able -Pulmonology consulted, assistance appreciated #Acute hypotension-resolved -BP now wnl -IVFs discontinued #End stage renal disease requiring HD -HD on TTS schedule -plan for HD today -Nephrology following, assistance appreciated #Anemia-stable -likely secondary to ESRD -epogen with dialysis -will transfuse for Hgb less than 7 #History of dementia #History of Parkinson's disease -Stable -Follow-up with neurology outpatient #Advanced care planning -Disease education, care plan, diagnosis, prognosis discussed with next of kin, daughter Selena Mena. Family understands and acknowledges current plan. -Time: +30 minutes History Interval history: Should had oxygen desaturations into the 60s overnight. Currently is on 15 L nonrebreather with oxygen saturations greater than 90%. She does not appear to be in any discomfort at this time. Hospitalist Physical - Physical exam Narrative exam: GENERAL: Thin elderly woman. In no acute distress. HEENT: NR mask @15lpm CHEST/LUNGS: CTAB on supplemental O2 HEART/CARDIOVASCULAR: RRR. No murmur, rubs or gallops appreciated. ABDOMEN: +BS. NT/ND. SKIN: No rashes noted. NEURO: Unable to assess. MUSCULOSKELETAL: No joint effusion EXTREMITIES: LUE AVF w/ thrill. No cyanosis, clubbing or edema. BUE rigidity. PSYCH: Alert to person - Constitutional Vitals: Temp Pulse Resp BP Pulse Ox 97.9 F 69 18 113/72 64 L 07/31/21 05:06 07/31/21 05:06 07/31/21 05:07/31/21 05:06 07/31/21 05:06 General appearance: Present: no acute distress, well-nourished Results - Labs CBC & Chem 7: 07/30/21 06:40 07/30/21 06:40 Labs: Laboratory Last Values WBC 9.0 K/mm3 (4.5-11.0) 07/30/21 06:40 RBC 2.75 M/mm3 (3.65-5.03) L 07/30/21 06:40 Hgb 9.1 gm/dl (10.1-14.3) L 07/30/21 06:40 Hct 27.5 % (30.3-42.9) L 07/30/21 06:40 MCV 100 fl (79-97) H 07/30/21 06:40 MCH 33 pg (28-32) H 07/30/21 06:40 MCHC 33 % (30-34) 07/30/21 06:40 RDW 13.9 % (13.2-15.2) 07/30/21 06:40 Plt Count 170 K/mm3 (140-440) 07/30/21 06:40 Lymph % (Auto) 9.9 % (13.4-35.0) L 07/29/21 06:37 [place] % (Auto) 6.3 % (0.0-7.3) 07/29/21 06:37 Eos % (Auto) 0.0 % (0.0-4.3) 07/29/21 06:37 Baso % (Auto) 0.4 % (0.0-1.8) 07/29/21 06:37 Lymph # (Auto) 0.6 K/mm3 (1.2-5.4) L 07/29/21 06:37 [place] # (Auto) 0.4 K/mm3 (0.0-0.8) 07/29/21 06:37 Eos # (Auto) 0.0 K/mm3 (0.0-0.4) 07/29/21 06:37 Baso # (Auto) 0.0 K/mm3 (0.0-0.1) 07/29/21 06:37 Seg Neutrophils % 83.4 % (40.0-70.0) H 07/29/21 06:37 Seg Neutrophils # 5.3 K/mm3 (1.8-7.7) 07/29/21 06:37 APTT 36.7 Sec. (24.2-36.6) H 07/28/21 12:20 Sodium 144 mmol/L (137-145) 07/30/21 06:40 Potassium 4.8 mmol/L (3.6-5.0) 07/30/21 06:40 Chloride 106.2 mmol/L (98-107) 07/30/21 06:40 Carbon Dioxide 23 mmol/L (22-30) 07/30/21 06:40 Anion Gap 20 mmol/L 07/30/21 06:40 BUN 54 mg/dL (7-17) H 07/30/21 06:40 Creatinine 10.0 mg/dL (0.6-1.2) H 07/30/21 06:40 Estimated GFR 5 ml/min 07/30/21 06:40 BUN/Creatinine Ratio 5 % 07/30/21 06:40 Glucose 100 mg/dL (65-100) 07/30/21 06:40 POC Glucose 80 mg/dL (70-105) 07/29/21 06:50 Lactic Acid 1.40 mmol/L (0.7-2.0) 07/28/21 12:20 Calcium 8.8 mg/dL (8.4-10.2) 07/30/21 06:40 Total Bilirubin 0.20 mg/dL (0.1-1.2) 07/28/21 12:20 AST 33 units/L (5-40) 07/28/21 12:20 ALT < 5 units/L (7-56) L 07/28/21 12:20 Alkaline Phosphatase 93 units/L (35-129) 07/28/21 12:20 Total Protein 7.3 g/dL (6.3-8.2) 07/28/21 12:20 Albumin 3.9 g/dL (3.9-5) 07/28/21 12:20 Albumin/Globulin Ratio 1.1 % 07/28/21 12:20 Urine Color Yellow (Yellow) 07/28/21 Unknown Urine Turbidity Turbid (Clear) 07/28/21 Unknown Urine pH 6.0 (5.0-7.0) 07/28/21 Unknown Ur Specific [place] 1.014 (1.003-1.030) 07/28/21 Unknown Urine Protein 100 mg/dl mg/dL (Negative) 07/28/21 Unknown Urine Glucose (UA) Neg mg/dL (Negative) 07/28/21 Unknown Urine Ketones Tr mg/dL (Negative) 07/28/21 Unknown Urine Blood Sm (Negative) 07/28/21 Unknown Urine Nitrite Neg (Negative) 07/28/21 Unknown Urine Bilirubin Neg (Negative) 07/28/21 Unknown Urine Urobilinogen < 2.0 mg/dL (<2.0) 07/28/21 Unknown Ur Leukocyte Esterase Lg (Negative) 07/28/21 Unknown Urine WBC (Auto) > 182.0 /HPF (0.0-6.0) H 07/28/21 Unknown Urine RBC (Auto) 10.0 /HPF (0.0-6.0) 07/28/21 Unknown Urine Bacteria (Auto) 4+ /HPF (Negative) 07/28/21 Unknown Urine WBC Clumps 3+ /HPF 07/28/21 Unknown Random Vancomycin 19.4 ug/mL (0-40.0) 07/31/21 05:27 Coronavirus (PCR) Positive (Negative) A 07/30/21 Unknown Hepatitis A IgM Ab Non-reactive (NonReactive) 07/30/21 09:03 Hep Bs Antigen Non-reactive (Negative) 07/30/21 09:03 Hep B Core IgM Ab Non-reactive (NonReactive) 07/30/21 09:03 Hepatitis C Antibody Non-reactive (NonReactive) 07/30/21 09:03 Microbiology: Microbiology 07/28/21 13:07 Peripheral/Venous Blood Culture - Preliminary NO GROWTH AFTER 48 HOURS 07/28/21 13:07 Peripheral/Venous Blood Culture - Preliminary Coag Negative Staphylococcus 07/30/21 08:00 Peripheral/Venous Blood Culture - Preliminary Culture in Progress 07/30/21 07:31 Peripheral/Venous Blood Culture - Preliminary Culture in Progress Muniz/IV: Voiding Method Incontinent Active Medications - Current Medications Current Medications: Generic Name Dose Route Start Last Admin Trade Name Freq PRN Reason Stop Dose Admin Acetaminophen 650 mg 07/28/21 22:55 07/29/21 06:30 Acetaminophen 325 Mg Tab PO 650 mg Q4H PRN Administration Pain MILD(1-3)/Fever >100.5/VALLE Dexamethasone 6 mg 07/29/21 10:00 07/30/21 09:00 Dexamethasone 2 Mg Tab PO 08/07/21 10:01 6 mg DAILY KALEB Administration Epoetin Nicholas-epbx 10,000 unit 07/29/21 12:28 Epoetin Nicholas-Epbx 10,000 Unit/1 Ml Vial IV ANIL PRN hemodialysis Heparin Sodium (Porcine) 5,000 unit 07/28/21 23:15 07/30/21 23:44 Heparin 5,000 Unit/1 Ml Vial SUB-Q 5,000 unit Q12HR KALEB Administration Ceftriaxone Sodium 1 gm in 50 mls @ 100 mls/hr 07/29/21 10:00 07/30/21 12:34 Rocephin/Ns 1 Gm/50 Ml IV 100 mls/hr Q24H KALEB Administration Protocol Sodium Chloride 100 mls @ 999 mls/hr 07/29/21 12:28 Nacl 0.9% IV ANIL PRN Hypotension Morphine Sulfate 2 mg 07/28/21 22:55 Morphine 2 Mg/1 Ml Inj IV Q4H PRN Pain, Moderate (4-6) Ondansetron HCl 4 mg 07/28/21 22:55 Ondansetron 4 Mg/2 Ml Inj IV Q8H PRN Nausea And Vomiting Sodium Chloride 10 ml 07/28/21 23:00 07/30/21 23:46 Sodium Chloride 0.9% 10 Ml Flush Syringe IV 10 ml BID KALEB Administration Sodium Chloride 10 ml 07/28/21 22:55 Sodium Chloride 0.9% 10 Ml Flush Syringe IV PRN PRN LINE FLUSH Nutrition/Malnutrition Assess - Dietary Evaluation Nutrition/Malnutrition Findings: Nutrition Notes Start: 07/29/21 15:43 Freq: Status: Active Protocol: Document 07/29/21 15:43 MAGDALENO (Rec: 07/29/21 16:08 MAGDALENO [id number]) Nutrition Notes Need for Assessment generated from: MD Order Initial or Follow up Assessment Current Diagnosis CKD (stage V CKD),Hypertension Other Pertinent Diagnosis ESRD+HD, UTI, Pyuria, Anemia, COVID-19 pui, SIRS, Hypotension, ... Current Diet Renal Diet + D Suppl (since B 07/29). Labs/Tests 07/28: Cl 95.7, BUN 37, Crea 8 .3. Pertinent Medications 07/29: Nutritionally unremarkable. 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 Weight Status Appropriate Subjective/Other Information RD consult for Poor Oral Intake and Dietary Supplementation assessments. Pt's PO intake of meals has been Poor (25%), according to ADL notes. I will prescribe Dietary Supplements to compensate for poor PO intake of meals. Pt is on Nasal Cannula, O2 saturation @ 96%, according to Physical Assessment History notes. Pt was lethargic and failed bedside swallow screen on , according to Progress notes. I strongly recommend FILAMENT WELDER evaluation to be performed to prevent aspiration and to facilitate PO intake of meals with mechanical/textural adaptations. Percent of energy/protein needs met: Prescribed Renal Diet provides for energy/protein needs (2, 072 Kcal/77 g) during LOS; additionally, Dietary Supplements will compensate for possible poor or insufficient PO intake of meals with 850 Kcal and 38 g of protein. Burn Absent Trauma Absent GI Symptoms None Food Allergy No Skin Integrity/Comment Assessment WNL. Current % PO Poor (25-49%) Minimum of two criteria No Fluid Accumulation N/A Reduced Clothes Presser Strength N/A (non-severe) Protein-Calorie Malnutrition N\A #1 Nutrition Diagnosis Inadequate protein-energy intake Etiology Uncertain. As Evidenced by Signs and Symptoms Pt's PO intake of meals has been Poor (25%), according to ADL notes. Is patient on ventilator? No Is Patient Ambulatory and/or Out of Bed No REE-([facility]-confined to bed) 1313.928 Kcal/Kg value to use for calculation 25 Approximate Energy Requirements Using 1450 kcal/Kg Calculation Used for Recommendations Kcal/kg Additional Notes Protein: >1.2 g/Kg ABW; >70 g/ day. Fluids: 1 ml/Kcal, or as per MD. Nutrition Intervention Change Diet Order: Continue Renal Diet. Add Supplement/Snack (indicate name/kcal Start 8 fl oz Nepro w/ /protein ) CARBSTEADY; BID. Provides kCal: 850 Provides Protein (gm) 38 Goal #1 Compensate, through dietary supplementation, for possible poor or insufficient PO intake of meals during LOS. Goal #2 Maintain body weight within +/ -3% of admission body weight during LOS. Follow-Up By: 08/06/21 Additional Comments Continue monitoring food tolerance, %PO intake of meals , and BM.
--- NOTE | 2021-07-31 08:35 | Progress Note ---
Assessment and Plan - Patient Problems (1) Encephalopathy Current Visit: Yes Status: Acute Plan to address problem: Probably toxic encephalopathy. Treat underlying condition and continue monitoring (2) COVID-19 in immunocompromised patient Current Visit: Yes Status: Acute Plan to address problem: Continue IV/PO Dexamethasone Supplemental oxygen/Respiratory support as needed Proning as tolerated Remdesevir contra-indicated due to Kidney failure Prophylactic anticoagulation Trend inflammatory markers to assess disease progression and prognosis (3) Acute hypotension Current Visit: Yes Status: Acute Plan to address problem: Hypotension on dialysis. Probably secondary to sepsis. Blood pressure has responded to volume resuscitation. Continue to monitor blood pressure closely (4) UTI (urinary tract infection) Current Visit: Yes Status: Acute Qualifiers: Urinary tract infection type: acute cystitis Plan to address problem: Continue antibiotics. Follow-up cultures (5) Anemia Current Visit: Yes Status: Chronic Qualifiers: Anemia type: due to chronic kidney disease Chronic kidney disease stage: on chronic dialysis Qualified Code(s): N18.6 - End stage renal disease; D63.1 - Anemia in chronic kidney disease; Z99.2 - Dependence on renal dialysis Plan to address problem: Give erythropoietin on dialysis (6) End stage renal disease Current Visit: Yes Status: Chronic Plan to address problem: Hemodialysis on a Friday, and Friday schedule. We will dialyze today (7) Dementia Current Visit: Yes Status: Acute Subjective Date of service: 07/31/21 Principal diagnosis: End-stage renal disease Interval history: Patient was sent from dialysis clinic due to hypotension. Patient also with altered mental status. She was started on empiric antibiotics and received intravenous fluids with improvement in blood pressure. Now diagnosed with COVID-19 pneumonia. Patient is on oxygen via nonrebreather mask. She is not speaking. Barely responds to stimuli. Objective - Exam Narrative Exam: Frail elderly -Lao female lying in bed on oxygen via nonrebreather mask HEENT: NCAT, pink oral mucous membrane Neck: Supple, no venous distention CVS: S1S2 RRR with no murmur, rub or gallop Chest: Rales in the mid and lower zones bilaterally Abdomen: Protuberant, soft, nontender, no organomegaly, bowel sounds are present Extremities: No edema Genitourinary deferred Skin warm and dry Neuro: Drowsy, awakens briefly, not speaking - Vital Signs Vital signs: Vital Signs - 12hr 07/30/21 07/31/21 07/31/21 22:16 01:00 05:06 Temperature 98.5 F 97.9 F Pulse Rate 62 62 69 Respiratory 22 18 Rate Blood Pressure 148/99 113/72 O2 Sat by Pulse 85 64 L Oximetry - Lab 07/30/21 06:40 08/01/21 05:54 Most recent lab results Calcium 8.8 mg/dL (8.4-10.2) 07/30/21 06:40 Medications & Allergies - Medications Allergies/Adverse Reactions: Allergies No Known Allergies Allergy (Verified 07/28/21 11:44) Home Medications: Home Medications Medication Instructions Recorded Confirmed Last Taken Type Dexamethasone 6 mg PO DAILY 07/29/21 07/29/21 Unknown History Molnupiravir 400 mg PO BID 07/29/21 07/29/21 Unknown History Vitamin C 500 mg PO DAILY 07/29/21 07/29/21 Unknown History Vitamin D3 1,000 unit PO DAILY 07/29/21 07/29/21 Unknown History Active Medications: Generic Name Dose Route Start Last Admin Trade Name Jhony PRN Reason Stop Dose Admin Acetaminophen 650 mg 07/28/21 22:55 07/29/21 06:30 Acetaminophen 325 Mg Tab PO 650 mg Q4H PRN Administration Pain MILD(1-3)/Fever >100.5/VALLE Dexamethasone 6 mg 07/29/21 10:00 07/30/21 09:00 Dexamethasone 2 Mg Tab PO 08/07/21 10:01 6 mg DAILY KALEB Administration Epoetin Nicholas-epbx 10,000 unit 07/29/21 12:28 Epoetin Nicholas-Epbx 10,000 Unit/1 Ml Vial IV ANIL PRN hemodialysis Heparin Sodium (Porcine) 5,000 unit 07/28/21 23:15 07/30/21 23:44 Heparin 5,000 Unit/1 Ml Vial SUB-Q 5,000 unit Q12HR KALEB Administration Ceftriaxone Sodium 1 gm in 50 mls @ 100 mls/hr 07/29/21 10:00 07/30/21 12:34 Rocephin/Ns 1 Gm/50 Ml IV 100 mls/hr Q24H KALEB Administration Protocol Sodium Chloride 100 mls @ 999 mls/hr 07/29/21 12:28 Nacl 0.9% IV ANIL PRN Hypotension Morphine Sulfate 2 mg 07/28/21 22:55 Morphine 2 Mg/1 Ml Inj IV Q4H PRN Pain, Moderate (4-6) Ondansetron HCl 4 mg 07/28/21 22:55 Ondansetron 4 Mg/2 Ml Inj IV Q8H PRN Nausea And Vomiting Sodium Chloride 10 ml 07/28/21 23:00 07/30/21 23:46 Sodium Chloride 0.9% 10 Ml Flush Syringe IV 10 ml BID KALEB Administration Sodium Chloride 10 ml 07/28/21 22:55 Sodium Chloride 0.9% 10 Ml Flush Syringe IV PRN PRN LINE FLUSH
[2021-07-31] MEDS: DEXAMETHASONE 2 MG TAB PO SCH (10:42)
[2021-07-31] MEDS: cefTRIAXone/NS 1 GM/50 ML 1 GM/50 ML BAG IV SCH (10:42)
[2021-07-31] MEDS: HEPARIN 5,000 UNIT/1 ML VIAL SUB-Q SCH ×2 (10:42→22:24)
--- NOTE | 2021-07-31 11:18 | Consultation ---
History of Present Illness Consult date: 07/31/21 Requesting physician: DANIA HALL History of present illness: 70 y/o female admitted for sirs with hypotension now in acute respiratory failure post volume repletion, found to be covid positive. Past History Past Medical History: ESRD, hypertension, other (Parkinson's disease, dementia) Past Surgical History: Other (Emergency room) Social history: full code (Lives in long-term), other Family history: hypertension Medications and Allergies Allergies Allergy/AdvReac Type Severity Reaction Status Date / Time No Known Allergies Allergy Verified 07/28/21 11:44 Home Medications Medication Instructions Recorded Confirmed Last Taken Type Dexamethasone 6 mg PO DAILY 07/29/21 07/29/21 Unknown History Dialyvite with Zinc Tablet 07/29/21 Unknown History Molnupiravir 400 mg PO BID 07/29/21 07/29/21 Unknown History Vitamin C 500 mg PO DAILY 07/29/21 07/29/21 Unknown History Vitamin D3 1,000 unit PO DAILY 07/29/21 07/29/21 Unknown History Active Meds: Active Medications Acetaminophen (Acetaminophen 325 Mg Tab) 650 mg PO Q4H PRN PRN Reason: Pain MILD(1-3)/Fever >100.5/VALLE Last Admin: 07/29/21 06:30 Dose: 650 mg Dexamethasone (Dexamethasone 2 Mg Tab) 6 mg PO DAILY KALEB Stop: 08/07/21 10:01 Last Admin: 07/31/21 10:42 Dose: 6 mg Epoetin Nicholas-epbx (Epoetin Nicholas-Epbx 10,000 Unit/1 Ml Vial) 10,000 unit IV ANIL PRN PRN Reason: hemodialysis Heparin Sodium (Porcine) (Heparin 5,000 Unit/1 Ml Vial) 5,000 unit SUB-Q Q12HR KLAEB Last Admin: 07/31/21 10:42 Dose: 5,000 unit Ceftriaxone Sodium (Rocephin/Ns 1 Gm/50 Ml) 1 gm in 50 mls @ 100 mls/hr IV Q24H KALEB; Protocol Last Admin: 07/31/21 10:42 Dose: 100 mls/hr Sodium Chloride (Nacl 0.9%) 100 mls @ 999 mls/hr IV ANIL PRN PRN Reason: Hypotension Morphine Sulfate (Morphine 2 Mg/1 Ml Inj) 2 mg IV Q4H PRN PRN Reason: Pain, Moderate (4-6) Ondansetron HCl (Ondansetron 4 Mg/2 Ml Inj) 4 mg IV Q8H PRN PRN Reason: Nausea And Vomiting Sodium Chloride (Sodium Chloride 0.9% 10 Ml Flush Syringe) 10 ml IV BID KALEB Last Admin: 07/31/21 10:42 Dose: 10 ml Sodium Chloride (Sodium Chloride 0.9% 10 Ml Flush Syringe) 10 ml IV PRN PRN PRN Reason: LINE FLUSH Physical Examination Vital signs: Vital Signs Temp Pulse BP Pulse Ox 98.7 F 84 98/66 99 07/28/21 11:43 07/28/21 11:43 07/28/21 11:43 07/28/21 11:43 Results - Laboratory Findings CBC and BMP: 07/30/21 06:40 07/30/21 06:40 Abnormal lab findings: Abnormal Labs 07/28/21 07/28/21 07/28/21 12:20 12:20 12:20 WBC 3.4 L RBC 2.80 L Hgb 9.1 L Hct 28.4 L MCV 102 H MCH 33 H Plt Count 132 L Lymph % (Auto) [place] % (Auto) 10.4 H Lymph # (Auto) 0.6 L Seg Neutrophils % 72.1 H APTT 36.7 H Chloride 95.7 L BUN 37 H Creatinine 8.3 H ALT < 5 L Urine WBC (Auto) Coronavirus (PCR) 07/28/21 07/29/21 07/30/21 Unknown 06:37 06:40 WBC RBC 2.55 L 2.75 L Hgb 8.5 L 9.1 L Hct 25.8 L 27.5 L MCV 101 H 100 H MCH 33 H 33 H Plt Count 123 L Lymph % (Auto) 9.9 L [place] % (Auto) Lymph # (Auto) 0.6 L Seg Neutrophils % 83.4 H APTT Chloride BUN Creatinine ALT Urine WBC (Auto) > 182.0 H Coronavirus (PCR) 07/30/21 07/30/21 06:40 Unknown WBC RBC Hgb Hct MCV MCH Plt Count Lymph % (Auto) [place] % (Auto) Lymph # (Auto) Seg Neutrophils % APTT Chloride BUN 54 H Creatinine 10.0 H ALT Urine WBC (Auto) Coronavirus (PCR) Positive A - Diagnostic Findings Chest x-ray: image reviewed Assessment and Plan 70 y/o female originally admitted for sirs, now found to be covid positive and in acute respiratory failure after having hypotension and fluid resuscitation. 1. Repeat CXR now 2. Agree with steroids 3. Not a candidate for remdesivir but would ask ID if she meets actemra criteria 4. Keep sats >88% 5. If cXR shows worsening volume status, will ask renal if able to pull more fluid now that hypotension has resolved 6. Encourage patient to prone as long as tolerated 7. Guarded prognosis given ESRD on HD
--- NOTE | 2021-07-31 12:42 | XRay Report ---
CHEST 1 VIEW 07/31/2021 12:14 PM INDICATION / CLINICAL INFORMATION: [place] hypoxemia, COVID with ESRD on HD. COMPARISON: 07/28/2021 FINDINGS: SUPPORT DEVICES: None. HEART / MEDIASTINUM: No significant abnormality. LUNGS / PLEURA: No significant pulmonary or pleural abnormality. No pneumothorax. ADDITIONAL FINDINGS: No significant additional findings. IMPRESSION: No acute abnormality. Signer Name: Arthur Dykes MD Signed: 07/31/2021 12:38 PM Workstation Name: [id number]
--- NOTE | 2021-07-31 12:52 | Consultation ---
History of Present Illness - Reason for Consult Consult date: 07/31/21 COVID-19 Requesting physician: DANIA HALL - History of Present Illness The patient is a 70-year-old female with ESRD on HD, hypertension, dementia, Parkinson's disease was admitted from dialysis due to hypotension. Upon evaluation in the ER, noted to be hypotensive, UA showed pyuria, was given IV fluids and antibiotics. Initial chest x-ray did not reveal any pneumonia. CT abdomen and pelvis without contrast also did not reveal any acute abnormality. She later developed desaturation, requiring 15 L nonrebreather. Was tested for COVID-19 which came back positive, hence infectious diseases was consulted. She has been afebrile otherwise. Labs initially revealed leukopenia WBC was 3.4, creatinine 9.3, UA showed significant pyuria of >182 Review of Systems: reviewed in the chart, unable to obtain, minimize risk of transmission Past History Past Medical History: ESRD, hypertension, other (Parkinson's disease, dementia) Past Surgical History: Other (Emergency room) Social history: full code (Lives in alf), other Family history: hypertension Medications and Allergies Allergies Allergy/AdvReac Type Severity Reaction Status Date / Time No Known Allergies Allergy Verified 07/28/21 11:44 Home Medications Medication Instructions Recorded Confirmed Last Taken Type Dexamethasone 6 mg PO DAILY 07/29/21 07/29/21 Unknown History Dialyvite with Zinc Tablet 07/29/21 Unknown History Molnupiravir 400 mg PO BID 07/29/21 07/29/21 Unknown History Vitamin C 500 mg PO DAILY 07/29/21 07/29/21 Unknown History Vitamin D3 1,000 unit PO DAILY 07/29/21 07/29/21 Unknown History Active Meds: Active Medications Acetaminophen (Acetaminophen 325 Mg Tab) 650 mg PO Q4H PRN PRN Reason: Pain MILD(1-3)/Fever >100.5/VALLE Last Admin: 07/29/21 06:30 Dose: 650 mg Dexamethasone (Dexamethasone 2 Mg Tab) 6 mg PO DAILY KALEB Stop: 08/07/21 10:01 Last Admin: 07/31/21 10:42 Dose: 6 mg Epoetin Nicholas-epbx (Epoetin Nicholas-Epbx 10,000 Unit/1 Ml Vial) 10,000 unit IV ANIL PRN PRN Reason: hemodialysis Heparin Sodium (Porcine) (Heparin 5,000 Unit/1 Ml Vial) 5,000 unit SUB-Q Q12HR [facility] Last Admin: 07/31/21 10:42 Dose: 5,000 unit Ceftriaxone Sodium (Rocephin/Ns 1 Gm/50 Ml) 1 gm in 50 mls @ 100 mls/hr IV Q24H KALEB; Protocol Last Admin: 07/31/21 10:42 Dose: 100 mls/hr Sodium Chloride (Nacl 0.9%) 100 mls @ 999 mls/hr IV ANIL PRN PRN Reason: Hypotension Morphine Sulfate (Morphine 2 Mg/1 Ml Inj) 2 mg IV Q4H PRN PRN Reason: Pain, Moderate (4-6) Ondansetron HCl (Ondansetron 4 Mg/2 Ml Inj) 4 mg IV Q8H PRN PRN Reason: Nausea And Vomiting Sodium Chloride (Sodium Chloride 0.9% 10 Ml Flush Syringe) 10 ml IV BID [facility] Last Admin: 07/31/21 10:42 Dose: 10 ml Sodium Chloride (Sodium Chloride 0.9% 10 Ml Flush Syringe) 10 ml IV PRN PRN PRN Reason: LINE FLUSH Physical Examination - Physical Exam Narrative exam: Physical Exam (reviewed in chart to minimize risk of transmission) Constitutional: deferred Head, Ears, Nose: deferred Eyes: deferred Neck: deferred Oral: deferred Cardiovascular: deferred Respiratory: deferred GI: deferred Musculoskeletal: deferred Skin: deferred Hem/Lymphatic: deferred Psych: deferred Neurological: deferred - Constitutional Vitals: Vital Signs Temp Pulse Resp BP Pulse Ox 97.9 F 85 16 119/83 98 07/31/21 05:06 07/31/21 11:02 07/31/21 11:02 07/31/21 11:02 07/31/21 11:02 Temperature -Last 24 Hours Temperature 97.9 F Temperature 98.5 F Temperature 98.3 F Results - Labs CBC & Chem 7: 07/30/21 06:40 07/30/21 06:40 Labs: Abnormal lab results 07/30/21 Range/Units Unknown Coronavirus (PCR) Positive A (Negative) - Imaging and Cardiology Chest x-ray: report reviewed, image reviewed (no pneumonia) Assessment and Plan Cultures: SARS CoV2 PCR: Positive Hepatitis panel: Nonreactive 07/28/2021 blood culture: 1 out of 4 bottles with coag negative staph 07/30/2021 blood culture: No growth A/P: 70-year-old female with ESRD on HD, hypertension, dementia, Parkinson's disease was admitted from dialysis due to hypotension. Upon evaluation in the ER, noted to be hypotensive, UA showed pyuria, was given IV fluids and antibiotics. Initial chest x-ray did not reveal any pneumonia. CT abdomen and pelvis without contrast also did not reveal any acute abnormality. She later developed desaturation, requiring 15 L nonrebreather. Was tested for COVID-19 which came back positive: #COVID-19 infection with hypoxia #Acute hypoxic respiratory failure: Requiring 15 L NRB #Leukopenia: Likely from COVID-19 #ESRD on HD: Renally adjust antibiotics #UTI: UA showed pyuria, no urine culture done. Recs: IV/PO Dexamethasone x 10 days Due to renal function, not a candidate for Remdesivir per hospital protocol trend ferritin, d-dimer, CRP every 2-3 days if requiring HFNC >30 L/min, and if CRP >7.5, would be a candidate for Actemra (depending on availability) prophylactic anticoagulation based on d-dimer per hospital protocol Complete 5 days of empiric ceftriaxone Kelley Kim MD, [facility] O: [phone] F: [phone] C: [phone]
[2021-07-31 14:28] LABS: C-Reactive Protein 4.2 mg/dL (0.00-1.30)
[2021-07-31] MEDS: EPOETIN ALFA-EPBX 10,000 UNIT/1 ML VIAL IV PRN (17:18)
[2021-08-01 07:14] LABS: Albumin 3.3 g/dL (3.9-5); Calcium 8.5 mg/dL (8.4-10.2)
--- NOTE | 2021-08-01 07:14 | Progress Note ---
Assessment and Plan Assessment and plan: #Systemic inflammatory response syndrome-improving #Urinary tract infection #Gram positive bacteremia #COVID-19 infection -WBC count wnl, tachycardia, tachypnea resolved -Urine WBCs >180, 4+ bacteria, lg LE; treated -COVID PCR positive: inflammatory markers elevated -BCx 07/28: 1/4 coagulase-negative staph; likely contaminant -BCx 07/30: No growth to date -vancomycin discontinued, will continue rocephin for a 5 day total course -Infectious Disease consulted, assistance appreciated #Acute hypoxic respiratory failure-worsening -likely secondary to COVID -currently on HFNC 12L /40FIO2; will wean as tolerated -continue dexamethasone and supplemental O2 -will wean O2 as tolerated, goal SpO2 >88% -prone patient as able -elevated d-dimer and patient at risk for VTE due to COVID -V/Q Scan and b/l LE dopplers ordered; CTA chest would be better, will discuss with Nephrology so patient can get dialysis after -Pulmonology consulted, assistance appreciated #Acute hypotension -BP borderline -will continue to monitor #End stage renal disease requiring HD -HD on TTS schedule -HD yesterday -Nephrology following, assistance appreciated #Anemia-stable -likely secondary to ESRD -epogen with dialysis -will transfuse for Hgb less than 7 #History of dementia #History of Parkinson's disease -Stable -Follow-up with neurology outpatient #Advanced care planning -Disease education, care plan, diagnosis, prognosis discussed with next of kin, daughter Selena Mena. Family understands and acknowledges current plan. -Time: +30 minutes History Interval history: Increased oxygen requirements overnight. Currently on high flow nasal cannula 12 L/40 FiO2. Patient is oxygenating greater than 92%. Patient continues to be non-verbal. She does not appear to be uncomfortable at this time. Hospitalist Physical - Physical exam Narrative exam: GENERAL: Thin elderly woman. In no acute distress. HEENT: HFNC 12/40 CHEST/LUNGS: Coarse breath sound bilaterally on supplemental O2 HEART/CARDIOVASCULAR: RRR. No murmur, rubs or gallops appreciated. ABDOMEN: +BS. NT/ND. SKIN: No rashes noted. NEURO: Unable to assess. MUSCULOSKELETAL: No joint effusion EXTREMITIES: LUE AVF w/ thrill. No cyanosis, clubbing or edema. BUE rigidity. PSYCH: Alert to person - Constitutional Vitals: Temp Pulse Resp BP Pulse Ox 98.5 F 63 20 130/81 99 08/01/21 05:33 08/01/21 05:33 08/01/21 05:33 08/01/21 05:33 08/01/21 05:33 General appearance: Present: no acute distress, well-nourished Results - Labs CBC & Chem 7: 07/30/21 06:40 08/01/21 05:54 Labs: Laboratory Last Values WBC 9.0 K/mm3 (4.5-11.0) 07/30/21 06:40 RBC 2.75 M/mm3 (3.65-5.03) L 07/30/21 06:40 Hgb 9.1 gm/dl (10.1-14.3) L 07/30/21 06:40 Hct 27.5 % (30.3-42.9) L 07/30/21 06:40 MCV 100 fl (79-97) H 07/30/21 06:40 MCH 33 pg (28-32) H 07/30/21 06:40 MCHC 33 % (30-34) 07/30/21 06:40 RDW 13.9 % (13.2-15.2) 07/30/21 06:40 Plt Count 170 K/mm3 (140-440) 07/30/21 06:40 Lymph % (Auto) 9.9 % (13.4-35.0) L 07/29/21 06:37 [place] % (Auto) 6.3 % (0.0-7.3) 07/29/21 06:37 Eos % (Auto) 0.0 % (0.0-4.3) 07/29/21 06:37 Baso % (Auto) 0.4 % (0.0-1.8) 07/29/21 06:37 Lymph # (Auto) 0.6 K/mm3 (1.2-5.4) L 07/29/21 06:37 [place] # (Auto) 0.4 K/mm3 (0.0-0.8) 07/29/21 06:37 Eos # (Auto) 0.0 K/mm3 (0.0-0.4) 07/29/21 06:37 Baso # (Auto) 0.0 K/mm3 (0.0-0.1) 07/29/21 06:37 Seg Neutrophils % 83.4 % (40.0-70.0) H 07/29/21 06:37 Seg Neutrophils # 5.3 K/mm3 (1.8-7.7) 07/29/21 06:37 APTT 36.7 Sec. (24.2-36.6) H 07/28/21 12:20 D-Dimer 750.30 ng/mlDDU (0-234) H 07/31/21 12:13 Sodium 144 mmol/L (137-145) 07/30/21 06:40 Potassium 4.8 mmol/L (3.6-5.0) 07/30/21 06:40 Chloride 106.2 mmol/L (98-107) 07/30/21 06:40 Carbon Dioxide 23 mmol/L (22-30) 07/30/21 06:40 Anion Gap 20 mmol/L 07/30/21 06:40 BUN 54 mg/dL (7-17) H 07/30/21 06:40 Creatinine 10.0 mg/dL (0.6-1.2) H 07/30/21 06:40 Estimated GFR 5 ml/min 07/30/21 06:40 BUN/Creatinine Ratio 5 % 07/30/21 06:40 Glucose 100 mg/dL (65-100) 07/30/21 06:40 POC Glucose 80 mg/dL (70-105) 07/29/21 06:50 Lactic Acid 1.40 mmol/L (0.7-2.0) 07/28/21 12:20 Calcium 8.8 mg/dL (8.4-10.2) 07/30/21 06:40 Ferritin 2182.0 ng/mL (10.0-200.0) H 07/31/21 12:13 Total Bilirubin 0.20 mg/dL (0.1-1.2) 07/28/21 12:20 AST 33 units/L (5-40) 07/28/21 12:20 ALT < 5 units/L (7-56) L 07/28/21 12:20 Alkaline Phosphatase 93 units/L (35-129) 07/28/21 12:20 Lactate Dehydrogenase 233 units/L (91-180) H 07/31/21 12:13 C-Reactive Protein 4.20 mg/dL (0.00-1.30) H 07/31/21 12:13 Total Protein 7.3 g/dL (6.3-8.2) 07/28/21 12:20 Albumin 3.9 g/dL (3.9-5) 07/28/21 12:20 Albumin/Globulin Ratio 1.1 % 07/28/21 12:20 Urine Color Yellow (Yellow) 07/28/21 Unknown Urine Turbidity Turbid (Clear) 07/28/21 Unknown Urine pH 6.0 (5.0-7.0) 07/28/21 Unknown Ur Specific [place] 1.014 (1.003-1.030) 07/28/21 Unknown Urine Protein 100 mg/dl mg/dL (Negative) 07/28/21 Unknown Urine Glucose (UA) Neg mg/dL (Negative) 07/28/21 Unknown Urine Ketones Tr mg/dL (Negative) 07/28/21 Unknown Urine Blood Sm (Negative) 07/28/21 Unknown Urine Nitrite Neg (Negative) 07/28/21 Unknown Urine Bilirubin Neg (Negative) 07/28/21 Unknown Urine Urobilinogen < 2.0 mg/dL (<2.0) 07/28/21 Unknown Ur Leukocyte Esterase Lg (Negative) 07/28/21 Unknown Urine WBC (Auto) > 182.0 /HPF (0.0-6.0) H 07/28/21 Unknown Urine RBC (Auto) 10.0 /HPF (0.0-6.0) 07/28/21 Unknown Urine Bacteria (Auto) 4+ /HPF (Negative) 07/28/21 Unknown Urine WBC Clumps 3+ /HPF 07/28/21 Unknown Random Vancomycin 19.4 ug/mL (0-40.0) 07/31/21 05:27 Coronavirus (PCR) Positive (Negative) A 07/30/21 Unknown Hepatitis A IgM Ab Non-reactive (NonReactive) 07/30/21 09:03 Hep Bs Antigen Non-reactive (Negative) 07/30/21 09:03 Hep B Core IgM Ab Non-reactive (NonReactive) 07/30/21 09:03 Hepatitis C Antibody Non-reactive (NonReactive) 07/30/21 09:03 Microbiology: Microbiology 07/28/21 13:07 Peripheral/Venous Blood Culture - Preliminary NO GROWTH AFTER 72 HOURS 07/30/21 08:00 Peripheral/Venous Blood Culture - Preliminary NO GROWTH AFTER 24 HOURS 07/30/21 07:31 Peripheral/Venous Blood Culture - Preliminary NO GROWTH AFTER 24 HOURS Muniz/IV: Voiding Method External Female Catheter Active Medications - Current Medications Current Medications: Generic Name Dose Route Start Last Admin Trade Name Freq PRN Reason Stop Dose Admin Acetaminophen 650 mg 07/28/21 22:55 07/29/21 06:30 Acetaminophen 325 Mg Tab PO 650 mg Q4H PRN Administration Pain MILD(1-3)/Fever >100.5/VALLE Dexamethasone 6 mg 07/29/21 10:00 07/31/21 10:42 Dexamethasone 2 Mg Tab PO 08/07/21 10:01 6 mg DAILY KALEB Administration Epoetin Nicholas-epbx 10,000 unit 07/29/21 12:28 07/31/21 17:18 Epoetin Nicholas-Epbx 10,000 Unit/1 Ml Vial IV 10,000 unit ANIL PRN Administration hemodialysis Heparin Sodium (Porcine) 5,000 unit 07/28/21 23:15 07/31/21 22:24 Heparin 5,000 Unit/1 Ml Vial SUB-Q 5,000 unit Q12HR KALEB Administration Ceftriaxone Sodium 1 gm in 50 mls @ 100 mls/hr 07/29/21 10:00 07/31/21 10:42 Rocephin/Ns 1 Gm/50 Ml IV 08/02/21 10:29 100 mls/hr Q24H KALEB Administration Protocol Sodium Chloride 100 mls @ 999 mls/hr 07/29/21 12:28 Nacl 0.9% IV ANIL PRN Hypotension Morphine Sulfate 2 mg 07/28/21 22:55 Morphine 2 Mg/1 Ml Inj IV Q4H PRN Pain, Moderate (4-6) Ondansetron HCl 4 mg 07/28/21 22:55 Ondansetron 4 Mg/2 Ml Inj IV Q8H PRN Nausea And Vomiting Sodium Chloride 10 ml 07/28/21 23:00 07/31/21 22:24 Sodium Chloride 0.9% 10 Ml Flush Syringe IV 10 ml BID KALEB Administration Sodium Chloride 10 ml 07/28/21 22:55 Sodium Chloride 0.9% 10 Ml Flush Syringe IV PRN PRN LINE FLUSH Nutrition/Malnutrition Assess - Dietary Evaluation Nutrition/Malnutrition Findings: Nutrition Notes Start: 07/29/21 15:43 Freq: Status: Active Protocol: Document 07/29/21 15:43 MAGDALENO (Rec: 07/29/21 16:08 MAGDALENO [id number]) Nutrition Notes Need for Assessment generated from: MD Order Initial or Follow up Assessment Current Diagnosis CKD (stage V CKD),Hypertension Other Pertinent Diagnosis ESRD+HD, UTI, Pyuria, Anemia, COVID-19 pui, SIRS, Hypotension, ... Current Diet Renal Diet + D Suppl (since B 07/29). Labs/Tests 07/28: Cl 95.7, BUN 37, Crea 8 .3. Pertinent Medications 07/29: Nutritionally unremarkable. Height 5 ft 4 in Weight 58 kg [place] Body Weight (kg) 54.54 BMI 21.9 Intake Prior to Admission Poor Weight change and time frame Pt denies having loss body weight [employer]. Weight Status Appropriate Subjective/Other Information RD consult for Poor Oral Intake and Dietary Supplementation assessments. Pt's PO intake of meals has been Poor (25%), according to ADL notes. I will prescribe Dietary Supplements to compensate for poor PO intake of meals. Pt is on Nasal Cannula, O2 saturation @ 96%, according to Physical Assessment History notes. Pt was lethargic and failed bedside swallow screen on , according to Progress notes. I strongly recommend HOST/[employer]ESS [employer]ANT evaluation to be performed to prevent aspiration and to facilitate PO intake of meals with mechanical/textural adaptations. Percent of energy/protein needs met: Prescribed Renal Diet provides for energy/protein needs (2, 072 Kcal/77 g) during LOS; additionally, Dietary Supplements will compensate for possible poor or insufficient PO intake of meals with 850 Kcal and 38 g of protein. Burn Absent Trauma Absent GI Symptoms None Food Allergy No Skin Integrity/Comment Assessment WNL. Current % PO Poor (25-49%) Minimum of two criteria No Fluid Accumulation N/A Reduced Lens Maker Strength N/A (non-severe) Protein-Calorie Malnutrition N\A #1 Nutrition Diagnosis Inadequate protein-energy intake Etiology Uncertain. As Evidenced by Signs and Symptoms Pt's PO intake of meals has been Poor (25%), according to ADL notes. Is patient on ventilator? No Is Patient Ambulatory and/or Out of Bed No REE-([place], [place]-confined to bed) 1313.928 Kcal/Kg value to use for calculation 25 Approximate Energy Requirements Using 1450 kcal/Kg Calculation Used for Recommendations Kcal/kg Additional Notes Protein: >1.2 g/Kg ABW; >70 g/ day. Fluids: 1 ml/Kcal, or as per MD. Nutrition Intervention Change Diet Order: Continue Renal Diet. Add Supplement/Snack (indicate name/kcal Start 8 fl oz Nepro w/ /protein ) CARBSTEADY; BID. Provides kCal: 850 Provides Protein (gm) 38 Goal #1 Compensate, through dietary supplementation, for possible poor or insufficient PO intake of meals during LOS. Goal #2 Maintain body weight within +/ -3% of admission body weight during LOS. Follow-Up By: 08/06/21 Additional Comments Continue monitoring food tolerance, %PO intake of meals , and BM.
--- NOTE | 2021-08-01 07:59 | Progress Note ---
Assessment and Plan 70 y/o female originally admitted for sirs, now found to be covid positive and in acute respiratory failure after having hypotension and fluid resuscitation. 08/01/21: Will need to discusss with renal but given this acute change in oxygen requirement but no real change on CXR, need to consider CTA to rule out pulmonary embolism as having COVID does make you prone to VTE. Would not treat empirically. If renal ok and can dialyze the next day would obtain CTA to assess for PE 1. Repeat CXR now 2. Agree with steroids 3. Not a candidate for remdesivir but would ask ID if she meets actemra criteria 4. Keep sats >88% 5. If cXR shows worsening volume status, will ask renal if able to pull more fluid now that hypotension has resolved 6. Encourage patient to prone as long as tolerated 7. Guarded prognosis given ESRD on HD Subjective Date of service: 08/01/21 Principal diagnosis: End-stage renal disease Interval history: Oxygen requirement increased overnight but they are weaning it down now. Sats stable. Repeat CXR showed no change. Objective Vital Signs - 12hr 07/31/21 07/31/21 07/31/21 20:49 22:00 22:36 Temperature 98.9 F Pulse Rate 91 H Respiratory 20 Rate Blood Pressure 132/85 Blood Pressure [Right] O2 Sat by Pulse 100 98 100 Oximetry 08/01/21 08/01/21 08/01/21 01:00 02:15 05:33 Temperature 98.5 F Pulse Rate 65 63 Respiratory 20 Rate Blood Pressure Blood Pressure 130/81 [Right] O2 Sat by Pulse 98 99 Oximetry CBC and BMP: 07/30/21 06:40 08/01/21 05:54 ABG, PT/INR, D-dimer: PT/INR, D-dimer D-Dimer 750.30 ng/mlDDU (0-234) H 07/31/21 12:13 Abnormal lab findings: Abnormal Labs 07/28/21 07/28/21 07/28/21 12:20 12:20 12:20 WBC 3.4 L RBC 2.80 L Hgb 9.1 L Hct 28.4 L MCV 102 H MCH 33 H Plt Count 132 L Lymph % (Auto) [place] % (Auto) 10.4 H Lymph # (Auto) 0.6 L Seg Neutrophils % 72.1 H APTT 36.7 H D-Dimer Potassium Chloride 95.7 L BUN 37 H Creatinine 8.3 H Ferritin AST ALT < 5 L Lactate Dehydrogenase C-Reactive Protein Albumin Urine WBC (Auto) Coronavirus (PCR) 07/28/21 07/29/21 07/30/21 Unknown 06:37 06:40 WBC RBC 2.55 L 2.75 L Hgb 8.5 L 9.1 L Hct 25.8 L 27.5 L MCV 101 H 100 H MCH 33 H 33 H Plt Count 123 L Lymph % (Auto) 9.9 L [place] % (Auto) Lymph # (Auto) 0.6 L Seg Neutrophils % 83.4 H APTT D-Dimer Potassium Chloride BUN Creatinine Ferritin AST ALT Lactate Dehydrogenase C-Reactive Protein Albumin Urine WBC (Auto) > 182.0 H Coronavirus (PCR) 07/30/21 07/30/21 07/31/21 06:40 Unknown 12:13 WBC RBC Hgb Hct MCV MCH Plt Count Lymph % (Auto) [place] % (Auto) Lymph # (Auto) Seg Neutrophils % APTT D-Dimer 750.30 H Potassium Chloride BUN 54 H Creatinine 10.0 H Ferritin AST ALT Lactate Dehydrogenase C-Reactive Protein Albumin Urine WBC (Auto) Coronavirus (PCR) Positive A 07/31/21 07/31/21 08/01/21 12:13 12:13 05:54 WBC RBC Hgb Hct MCV MCH Plt Count Lymph % (Auto) [place] % (Auto) Lymph # (Auto) Seg Neutrophils % APTT D-Dimer Potassium 3.4 L D Chloride BUN 24 H Creatinine 5.1 H Ferritin 2182.0 H AST 44 H ALT Lactate Dehydrogenase 233 H C-Reactive Protein 4.20 H Albumin 3.3 L Urine WBC (Auto) Coronavirus (PCR)
--- NOTE | 2021-08-01 08:24 | Progress Note ---
Assessment and Plan - Patient Problems (1) Encephalopathy Current Visit: Yes Status: Acute Plan to address problem: Probably toxic encephalopathy. Improving. Continue treating underlying condition and continue monitoring (2) COVID-19 in immunocompromised patient Current Visit: Yes Status: Acute Plan to address problem: Continue IV/PO Dexamethasone Supplemental oxygen/Respiratory support as needed Proning as tolerated Remdesevir contra-indicated due to Kidney failure Prophylactic anticoagulation Trend inflammatory markers to assess disease progression and prognosis (3) Acute hypotension Current Visit: Yes Status: Acute Plan to address problem: Hypotension on dialysis. Probably secondary to sepsis. Blood pressure has responded to volume resuscitation. Continue to monitor blood pressure closely (4) UTI (urinary tract infection) Current Visit: Yes Status: Acute Qualifiers: Urinary tract infection type: acute cystitis Plan to address problem: Continue antibiotics. Follow-up cultures (5) Anemia Current Visit: Yes Status: Chronic Qualifiers: Anemia type: due to chronic kidney disease Chronic kidney disease stage: on chronic dialysis Qualified Code(s): N18.6 - End stage renal disease; D63.1 - Anemia in chronic kidney disease; Z99.2 - Dependence on renal dialysis Plan to address problem: Give erythropoietin on dialysis (6) End stage renal disease Current Visit: Yes Status: Chronic Plan to address problem: Hemodialysis on a Friday, and Friday schedule. We will dialyze again tomorrow (7) Dementia Current Visit: Yes Status: Acute Subjective Date of service: 08/01/21 Principal diagnosis: End-stage renal disease Interval history: Patient was sent from dialysis clinic due to hypotension. Patient also with altered mental status. She was started on empiric antibiotics and received intravenous fluids with improvement in blood pressure. Now diagnosed with COV ID-19 pneumonia. Patient is on oxygen via high flow nasal cannula this morning. She appears less dyspneic. She is still nonverbal but her eyes are open and she follows my movements in the room Objective - Exam Narrative Exam: Frail elderly -Maltese female lying in bed on oxygen via high flow nasal cannula HEENT: NCAT, Neck: Supple, no venous distention CVS: S1S2 RRR with no murmur, rub or gallop Chest: Coarse breath sounds with scattered rales Abdomen: Protuberant, soft, nontender, no organomegaly, bowel sounds are present Extremities: No edema Genitourinary deferred Skin warm and dry Neuro: Awake, nonverbal, follows my movements in the room - Vital Signs Vital signs: Vital Signs - 12hr 07/31/21 07/31/21 07/31/21 20:49 22:00 22:36 Temperature 98.9 F Pulse Rate 91 H Respiratory 20 Rate Blood Pressure 132/85 Blood Pressure [Right] O2 Sat by Pulse 100 98 100 Oximetry 08/01/21 08/01/21 08/01/21 01:00 02:15 05:33 Temperature 98.5 F Pulse Rate 65 63 Respiratory 20 Rate Blood Pressure Blood Pressure 130/81 [Right] O2 Sat by Pulse 98 99 Oximetry - Lab 07/30/21 06:40 08/01/21 05:54 Most recent lab results Calcium 8.5 mg/dL (8.4-10.2) 08/01/21 05:54 Medications & Allergies - Medications Allergies/Adverse Reactions: Allergies No Known Allergies Allergy (Verified 07/28/21 11:44) Home Medications: Home Medications Medication Instructions Recorded Confirmed Last Taken Type Dexamethasone 6 mg PO DAILY 07/29/21 07/29/21 Unknown History Molnupiravir 400 mg PO BID 07/29/21 07/29/21 Unknown History Vitamin C 500 mg PO DAILY 07/29/21 07/29/21 Unknown History Vitamin D3 1,000 unit PO DAILY 07/29/21 07/29/21 Unknown History Active Medications: Generic Name Dose Route Start Last Admin Trade Name Freq PRN Reason Stop Dose Admin Acetaminophen 650 mg 07/28/21 22:55 07/29/21 06:30 Acetaminophen 325 Mg Tab PO 650 mg Q4H PRN Administration Pain MILD(1-3)/Fever >100.5/VALLE Dexamethasone 6 mg 07/29/21 10:00 07/31/21 10:42 Dexamethasone 2 Mg Tab PO 08/07/21 10:01 6 mg DAILY KALEB Administration Epoetin Nicholas-epbx 10,000 unit 07/29/21 12:28 07/31/21 17:18 Epoetin Nicholas-Epbx 10,000 Unit/1 Ml Vial IV 10,000 unit ANIL PRN Administration hemodialysis Heparin Sodium (Porcine) 5,000 unit 07/28/21 23:15 07/31/21 22:24 Heparin 5,000 Unit/1 Ml Vial SUB-Q 5,000 unit Q12HR KALEB Administration Ceftriaxone Sodium 1 gm in 50 mls @ 100 mls/hr 07/29/21 10:00 07/31/21 10:42 Rocephin/Ns 1 Gm/50 Ml IV 08/02/21 10:29 100 mls/hr Q24H KALEB Administration Protocol Sodium Chloride 100 mls @ 999 mls/hr 07/29/21 12:28 Nacl 0.9% IV ANIL PRN Hypotension Morphine Sulfate 2 mg 07/28/21 22:55 Morphine 2 Mg/1 Ml Inj IV Q4H PRN Pain, Moderate (4-6) Ondansetron HCl 4 mg 07/28/21 22:55 Ondansetron 4 Mg/2 Ml Inj IV Q8H PRN Nausea And Vomiting Sodium Chloride 10 ml 07/28/21 23:00 07/31/21 22:24 Sodium Chloride 0.9% 10 Ml Flush Syringe IV 10 ml BID KALEB Administration Sodium Chloride 10 ml 07/28/21 22:55 Sodium Chloride 0.9% 10 Ml Flush Syringe IV PRN PRN LINE FLUSH
[2021-08-01] MEDS: DEXAMETHASONE 2 MG TAB PO SCH (10:18)
[2021-08-01] MEDS: HEPARIN 5,000 UNIT/1 ML VIAL SUB-Q SCH ×2 (10:18→22:21)
[2021-08-01] MEDS: cefTRIAXone/NS 1 GM/50 ML 1 GM/50 ML BAG IV SCH (10:18)
--- NOTE | 2021-08-01 11:27 | Progress Note ---
Assessment and Plan Cultures: SARS CoV2 PCR: Positive Hepatitis panel: Nonreactive 07/28/2021 blood culture: 1 out of 4 bottles with coag negative staph 07/30/2021 blood culture: No growth A/P: 70-year-old female with ESRD on HD, hypertension, dementia, Parkinson's disease was admitted from dialysis due to hypotension. Upon evaluation in the ER, noted to be hypotensive, UA showed pyuria, was given IV fluids and antibiotics. Ini tia chest x-ray did not reveal any pneumonia. CT abdomen and pelvis without contrast also did not reveal any acute abnormality. She later developed desaturation, requiring 15 L nonrebreather. Was tested for COVID-19 which came back positive: #COVID-19 infection with hypoxia: Ferritin 2182, CRP 4.2, LDH 233, D-dimer 750. #Acute hypoxic respiratory failure:On high flow nasal cannula at 12 L/min. #Leukopenia: Likely from COVID-19 #ESRD on HD: Renally adjust antibiotics #UTI: UA showed pyuria, no urine culture done. On empiric ceftriaxone. Recs: -continue IV/PO Dexamethasone x 10 days -Due to renal function, not a candidate for Remdesivir per hospital protocol -trend ferritin, d-dimer, CRP every 2-3 days -based on her CRP and current oxygen requirements, not a candidate for Actemra per hospital protocol -prophylactic anticoagulation based on d-dimer per hospital protocol -Complete 5 days of empiric ceftriaxone Kelley Kim MD, FACP, [facility] ([facility]) O: [phone] F: [phone] C: [phone] Subjective Date of service: 08/01/21 Principal diagnosis: End-stage renal disease Interval history: No fever. Ferritin 2182, CRP 4.2, LDH 233, D-dimer 750. On high flow nasal cannula at 12 L/min. Objective - Exam Narrative Exam: Physical Exam (reviewed in chart to minimize risk of transmission) Constitutional: deferred Head, Ears, Nose: deferred Eyes: deferred Neck: deferred Oral: deferred Cardiovascular: deferred Respiratory: deferred GI: deferred Musculoskeletal: deferred Skin: deferred Hem/Lymphatic: deferred Psych: deferred Neurological: deferred - Constitutional Vitals: Vital Signs Temp Pulse Resp BP Pulse Ox 98.5 F 63 20 130/81 99 08/01/21 05:33 08/01/21 05:33 08/01/21 05:33 08/01/21 05:33 08/01/21 08:24 Temperature -Last 24 Hours Temperature 98.5 F Temperature 98.9 F Temperature 97.8 F Temperature 97.9 F Temperature 98.4 F - Labs CBC & Chem 7: 07/30/21 06:40 08/01/21 05:54 Labs: Abnormal lab results 07/31/21 07/31/21 07/31/21 Range/Units 12:13 12:13 12:13 D-Dimer 750.30 H (0-234) ng/mlDDU Potassium (3.6-5.0) mmol/L BUN (7-17) mg/dL Creatinine (0.6-1.2) mg/dL Ferritin 2182.0 H (10.0-200.0) ng/mL AST (5-40) units/L Lactate Dehydrogenase 233 H (91-180) units/L C-Reactive Protein 4.20 H (0.00-1.30) mg/dL Albumin (3.9-5) g/dL 08/01/21 Range/Units 05:54 D-Dimer (0-234) ng/mlDDU Potassium 3.4 L D (3.6-5.0) mmol/L BUN 24 H (7-17) mg/dL Creatinine 5.1 H (0.6-1.2) mg/dL Ferritin (10.0-200.0) ng/mL AST 44 H (5-40) units/L Lactate Dehydrogenase (91-180) units/L C-Reactive Protein (0.00-1.30) mg/dL Albumin 3.3 L (3.9-5) g/dL
--- NOTE | 2021-08-01 13:01 | Vascular Lab Report ---
DUPLEX DOPPLER LOWER EXTREMITY VEINS, BILATERAL INDICATION / CLINICAL INFORMATION: elevated d-dimer. TECHNIQUE: Duplex doppler imaging was performed through the veins of both lower extremities using dylan ous compression and other maneuvers. COMPARISON: None available. FINDINGS: RIGHT COMMON FEMORAL VEIN: Negative. RIGHT FEMORAL VEIN: Negative. RIGHT POPLITEAL VEIN: Negative. RIGHT CALF VEINS: Negative. LEFT COMMON FEMORAL VEIN: Negative. LEFT FEMORAL VEIN: Negative. LEFT POPLITEAL VEIN: Negative. LEFT CALF VEINS: Negative. ADDITIONAL FINDINGS: None. IMPRESSION: 1. No sonographic evidence for DVT in either lower extremity. Scribed by: Licha Chan RDMS, [place], [place] Scribed: 08/01/2021 11:29 AM I have reviewed the images, agree with this report, and edited this report as needed. Signer Name: Arthur Dykes MD Signed: 08/01/2021 12:57 PM Workstation Name: [id number]
[2021-08-02] MEDS: HEPARIN 5,000 UNIT/1 ML VIAL SUB-Q SCH ×2 (09:22→22:32)
[2021-08-02] MEDS: DEXAMETHASONE 2 MG TAB PO SCH (09:22)
[2021-08-02] MEDS: cefTRIAXone/NS 1 GM/50 ML 1 GM/50 ML BAG IV SCH (09:25)
--- NOTE | 2021-08-02 09:44 | Progress Note ---
Assessment and Plan Assessment and plan: #Systemic inflammatory response syndrome-improving #Urinary tract infection #Gram positive bacteremia #COVID-19 infection -WBC count wnl, tachycardia, tachypnea resolved -Urine WBCs >180, 4+ bacteria, lg LE; treated -COVID PCR positive: inflammatory markers elevated -BCx 07/28: 1/4 coagulase-negative staph; likely contaminant -BCx 07/30: No growth to date x72hrs -vancomycin discontinued, will continue rocephin for a 5 day total course (completed 08/02) -Infectious Disease consulted, assistance appreciated #Acute hypoxic respiratory failure-worsening -likely secondary to COVID -currently on HFNC 12L /40FIO2; will wean as tolerated -continue dexamethasone and supplemental O2 -will wean O2 as tolerated, goal SpO2 >88% -prone patient as able -elevated d-dimer and patient at risk for VTE due to COVID -V/Q Scan and b/l LE dopplers ordered; CTA chest would be better, will discuss with Nephrology so patient can get dialysis after -Pulmonology consulted, assistance appreciated #Acute hypotension -BP borderline -will continue to monitor #End stage renal disease requiring HD -HD on TTS schedule -HD per Nephrology -Nephrology following, assistance appreciated #Anemia-stable -likely secondary to ESRD -epogen with dialysis -will transfuse for Hgb less than 7 #History of dementia #History of Parkinson's disease -Stable -Follow-up with neurology outpatient #Advanced care planning -Disease education, care plan, diagnosis, prognosis discussed with next of kin, daughter Selena Mena. Family understands and acknowledges current plan. -Time: +30 minutes History Interval history: Oxygen requirements reduced, currently on Venturi mask at 15 L/min. Easily arousable. Patient not speaking. Per nursing patient not opening her mouth to take medications. Speech therapy consulted. Hospitalist Physical - Physical exam Narrative exam: GENERAL: Thin elderly woman. In no acute distress. HEENT: Venturi mask 15 L/min CHEST/LUNGS: Coarse breath sound bilaterally on supplemental O2 HEART/CARDIOVASCULAR: RRR. No murmur, rubs or gallops appreciated. ABDOMEN: +BS. NT/ND. SKIN: No rashes noted. NEURO: Unable to assess. MUSCULOSKELETAL: No joint effusion EXTREMITIES: LUE AVF w/ thrill. No cyanosis, clubbing or edema. BUE rigidity. PSYCH: Alert to person - Constitutional Vitals: Temp Pulse Resp BP Pulse Ox 97.2 F L 68 18 112/61 98 08/02/21 05:59 08/02/21 05:59 08/02/21 05:59 08/02/21 05:59 08/02/21 07:54 General appearance: Present: no acute distress, well-nourished Results - Labs CBC & Chem 7: 07/30/21 06:40 08/01/21 05:54 Labs: Laboratory Last Values WBC 9.0 K/mm3 (4.5-11.0) 07/30/21 06:40 RBC 2.75 M/mm3 (3.65-5.03) L 07/30/21 06:40 Hgb 9.1 gm/dl (10.1-14.3) L 07/30/21 06:40 Hct 27.5 % (30.3-42.9) L 07/30/21 06:40 MCV 100 fl (79-97) H 07/30/21 06:40 MCH 33 pg (28-32) H 07/30/21 06:40 MCHC 33 % (30-34) 07/30/21 06:40 RDW 13.9 % (13.2-15.2) 07/30/21 06:40 Plt Count 170 K/mm3 (140-440) 07/30/21 06:40 Lymph % (Auto) 9.9 % (13.4-35.0) L 07/29/21 06:37 [place] % (Auto) 6.3 % (0.0-7.3) 07/29/21 06:37 Eos % (Auto) 0.0 % (0.0-4.3) 07/29/21 06:37 Baso % (Auto) 0.4 % (0.0-1.8) 07/29/21 06:37 Lymph # (Auto) 0.6 K/mm3 (1.2-5.4) L 07/29/21 06:37 [place] # (Auto) 0.4 K/mm3 (0.0-0.8) 07/29/21 06:37 Eos # (Auto) 0.0 K/mm3 (0.0-0.4) 07/29/21 06:37 Baso # (Auto) 0.0 K/mm3 (0.0-0.1) 07/29/21 06:37 Seg Neutrophils % 83.4 % (40.0-70.0) H 07/29/21 06:37 Seg Neutrophils # 5.3 K/mm3 (1.8-7.7) 07/29/21 06:37 APTT 36.7 Sec. (24.2-36.6) H 07/28/21 12:20 D-Dimer 750.30 ng/mlDDU (0-234) H 07/31/21 12:13 Sodium 141 mmol/L (137-145) 08/01/21 05:54 Potassium 3.4 mmol/L (3.6-5.0) L D 08/01/21 05:54 Chloride 99.7 mmol/L (98-107) 08/01/21 05:54 Carbon Dioxide 28 mmol/L (22-30) 08/01/21 05:54 Anion Gap 17 mmol/L 08/01/21 05:54 BUN 24 mg/dL (7-17) H 08/01/21 05:54 Creatinine 5.1 mg/dL (0.6-1.2) H 08/01/21 05:54 Estimated GFR 10 ml/min 08/01/21 05:54 BUN/Creatinine Ratio 5 % 08/01/21 05:54 Glucose 93 mg/dL (65-100) 08/01/21 05:54 POC Glucose 80 mg/dL (70-105) 07/29/21 06:50 Lactic Acid 1.40 mmol/L (0.7-2.0) 07/28/21 12:20 Calcium 8.5 mg/dL (8.4-10.2) 08/01/21 05:54 Ferritin 2182.0 ng/mL (10.0-200.0) H 07/31/21 12:13 Total Bilirubin 0.20 mg/dL (0.1-1.2) 08/01/21 05:54 AST 44 units/L (5-40) H 08/01/21 05:54 ALT 10 units/L (7-56) 08/01/21 05:54 Alkaline Phosphatase 60 units/L (35-129) 08/01/21 05:54 Lactate Dehydrogenase 233 units/L (91-180) H 07/31/21 12:13 C-Reactive Protein 4.20 mg/dL (0.00-1.30) H 07/31/21 12:13 Total Protein 6.7 g/dL (6.3-8.2) 08/01/21 05:54 Albumin 3.3 g/dL (3.9-5) L 08/01/21 05:54 Albumin/Globulin Ratio 1.0 % 08/01/21 05:54 Urine Color Yellow (Yellow) 07/28/21 Unknown Urine Turbidity Turbid (Clear) 07/28/21 Unknown Urine pH 6.0 (5.0-7.0) 07/28/21 Unknown Ur Specific [place] 1.014 (1.003-1.030) 07/28/21 Unknown Urine Protein 100 mg/dl mg/dL (Negative) 07/28/21 Unknown Urine Glucose (UA) Neg mg/dL (Negative) 07/28/21 Unknown Urine Ketones Tr mg/dL (Negative) 07/28/21 Unknown Urine Blood Sm (Negative) 07/28/21 Unknown Urine Nitrite Neg (Negative) 07/28/21 Unknown Urine Bilirubin Neg (Negative) 07/28/21 Unknown Urine Urobilinogen < 2.0 mg/dL (<2.0) 07/28/21 Unknown Ur Leukocyte Esterase Lg (Negative) 07/28/21 Unknown Urine WBC (Auto) > 182.0 /HPF (0.0-6.0) H 07/28/21 Unknown Urine RBC (Auto) 10.0 /HPF (0.0-6.0) 07/28/21 Unknown Urine Bacteria (Auto) 4+ /HPF (Negative) 07/28/21 Unknown Urine WBC Clumps 3+ /HPF 07/28/21 Unknown Random Vancomycin 19.4 ug/mL (0-40.0) 07/31/21 05:27 Coronavirus (PCR) Positive (Negative) A 07/30/21 Unknown Hepatitis A IgM Ab Non-reactive (NonReactive) 07/30/21 09:03 Hep Bs Antigen Non-reactive (Negative) 07/30/21 09:03 Hep B Core IgM Ab Non-reactive (NonReactive) 07/30/21 09:03 Hepatitis C Antibody Non-reactive (NonReactive) 07/30/21 09:03 Microbiology: Microbiology 07/28/21 13:07 Peripheral/Venous Blood Culture - Preliminary NO GROWTH AFTER 4 DAYS 07/30/21 08:00 Peripheral/Venous Blood Culture - Preliminary NO GROWTH AFTER 48 HOURS 07/30/21 07:31 Peripheral/Venous Blood Culture - Preliminary NO GROWTH AFTER 48 HOURS Muniz/IV: Voiding Method External Female Catheter Active Medications - Current Medications Current Medications: Generic Name Dose Route Start Last Admin Trade Name Freq PRN Reason Stop Dose Admin Acetaminophen 650 mg 07/28/21 22:55 07/29/21 06:30 Acetaminophen 325 Mg Tab PO 650 mg Q4H PRN Administration Pain MILD(1-3)/Fever >100.5/VALLE Dexamethasone 6 mg 07/29/21 10:00 08/02/21 09:22 Dexamethasone 2 Mg Tab PO 08/07/21 10:01 6 mg DAILY KALEB Administration Epoetin Nicholas-epbx 10,000 unit 07/29/21 12:28 07/31/21 17:18 Epoetin Nicholas-Epbx 10,000 Unit/1 Ml Vial IV 10,000 unit ANIL PRN Administration hemodialysis Heparin Sodium (Porcine) 5,000 unit 07/28/21 23:15 08/02/21 09:22 Heparin 5,000 Unit/1 Ml Vial SUB-Q 5,000 unit Q12HR KALEB Administration Ceftriaxone Sodium 1 gm in 50 mls @ 100 mls/hr 07/29/21 10:00 08/02/21 09:25 Rocephin/Ns 1 Gm/50 Ml IV 08/02/21 10:29 100 mls/hr Q24H KALEB Administration Protocol Sodium Chloride 100 mls @ 999 mls/hr 07/29/21 12:28 Nacl 0.9% IV ANIL PRN Hypotension Morphine Sulfate 2 mg 07/28/21 22:55 Morphine 2 Mg/1 Ml Inj IV Q4H PRN Pain, Moderate (4-6) Ondansetron HCl 4 mg 07/28/21 22:55 Ondansetron 4 Mg/2 Ml Inj IV Q8H PRN Nausea And Vomiting Sodium Chloride 10 ml 07/28/21 23:00 08/02/21 09:25 Sodium Chloride 0.9% 10 Ml Flush Syringe IV 10 ml BID KALEB Administration Sodium Chloride 10 ml 07/28/21 22:55 Sodium Chloride 0.9% 10 Ml Flush Syringe IV PRN PRN LINE FLUSH Nutrition/Malnutrition Assess - Dietary Evaluation Nutrition/Malnutrition Findings: Nutrition Notes Start: 07/29/21 15:43 Freq: Status: Active Protocol: Document 07/29/21 15:43 MAGDALENO (Rec: 07/29/21 16:08 MAGDALENO [id number]) Nutrition Notes Need for Assessment generated from: MD Order Initial or Follow up Assessment Current Diagnosis CKD (stage V CKD),Hypertension Other Pertinent Diagnosis ESRD+HD, UTI, Pyuria, Anemia, COVID-19 pui, SIRS, Hypotension, ... Current Diet Renal Diet + D Suppl (since B 07/29). Labs/Tests 07/28: Cl 95.7, BUN 37, Crea 8 .3. Pertinent Medications 07/29: Nutritionally unremarkable. Height 5 ft 4 in Weight 58 kg [place] Body Weight (kg) 54.54 BMI 21.9 Intake Prior to Admission Poor Weight change and time frame Pt denies having loss body weight [employer]. Weight Status Appropriate Subjective/Other Information RD consult for Poor Oral Intake and Dietary Supplementation assessments. Pt's PO intake of meals has been Poor (25%), according to ADL notes. I will prescribe Dietary Supplements to compensate for poor PO intake of meals. Pt is on Nasal Cannula, O2 saturation @ 96%, according to Physical Assessment History notes. Pt was lethargic and failed bedside swallow screen on , according to Progress notes. I strongly recommend HEALTH COMPANION evaluation to be performed to prevent aspiration and to facilitate PO intake of meals with mechanical/textural adaptations. Percent of energy/protein needs met: Prescribed Renal Diet provides for energy/protein needs (2, 072 Kcal/77 g) during LOS; additionally, Dietary Supplements will compensate for possible poor or insufficient PO intake of meals with 850 Kcal and 38 g of protein. Burn Absent Trauma Absent GI Symptoms None Food Allergy No Skin Integrity/Comment Assessment WNL. Current % PO Poor (25-49%) Minimum of two criteria No Fluid Accumulation N/A Reduced Junior Qa Analyst Strength N/A (non-severe) Protein-Calorie Malnutrition N\A #1 Nutrition Diagnosis Inadequate protein-energy intake Etiology Uncertain. As Evidenced by Signs and Symptoms Pt's PO intake of meals has been Poor (25%), according to ADL notes. Is patient on ventilator? No Is Patient Ambulatory and/or Out of Bed No REE-([place]-confined to bed) 1313.928 Kcal/Kg value to use for calculation 25 Approximate Energy Requirements Using 1450 kcal/Kg Calculation Used for Recommendations Kcal/kg Additional Notes Protein: >1.2 g/Kg ABW; >70 g/ day. Fluids: 1 ml/Kcal, or as per MD. Nutrition Intervention Change Diet Order: Continue Renal Diet. Add Supplement/Snack (indicate name/kcal Start 8 fl oz Nepro w/ /protein ) CARBSTEADY; BID. Provides kCal: 850 Provides Protein (gm) 38 Goal #1 Compensate, through dietary supplementation, for possible poor or insufficient PO intake of meals during LOS. Goal #2 Maintain body weight within +/ -3% of admission body weight during LOS. Follow-Up By: 08/06/21 Additional Comments Continue monitoring food tolerance, %PO intake of meals , and BM.
--- NOTE | 2021-08-02 09:44 | Progress Note ---
Assessment and Plan 70 y/o female originally admitted for sirs, now found to be covid positive and in acute respiratory failure after having hypotension and fluid resuscitation. 08/02/21: Continue to prone as tolerated. Steroids. Wean FiO2 for sats >88%. A ssess for PE. HD per renal. Guarded prognosis. 08/01/21: Will need to discusss with renal but given this acute change in oxygen requirement but no real change on CXR, need to consider CTA to rule out pulmonary embolism as having COVID does make you prone to VTE. Would not treat empirically. If renal ok and can dialyze the next day would obtain CTA to assess for PE 1. Repeat CXR now 2. Agree with steroids 3. Not a candidate for remdesivir but would ask ID if she meets actemra criteria 4. Keep sats >88% 5. If cXR shows worsening volume status, will ask renal if able to pull more fluid now that hypotension has resolved 6. Encourage patient to prone as long as tolerated 7. Guarded prognosis given ESRD on HD Subjective Date of service: 08/02/21 Principal diagnosis: End-stage renal disease Interval history: Remains on Venturi mask with good sats but no documentation of weaning attempts. Objective Vital Signs - 12hr 08/01/21 08/01/21 08/02/21 22:00 23:46 03:00 Temperature 98.7 F Pulse Rate 74 Respiratory 18 Rate Blood Pressure 111/65 O2 Sat by Pulse 98 91 Oximetry 08/02/21 08/02/21 05:59 07:54 Temperature 97.2 F L Pulse Rate 68 Respiratory 18 Rate Blood Pressure 112/61 O2 Sat by Pulse 90 98 Oximetry CBC and BMP: 07/30/21 06:40 08/01/21 05:54 ABG, PT/INR, D-dimer: PT/INR, D-dimer D-Dimer 750.30 ng/mlDDU (0-234) H 07/31/21 12:13 Abnormal lab findings: Abnormal Labs 07/28/21 07/28/21 07/28/21 12:20 12:20 12:20 WBC 3.4 L RBC 2.80 L Hgb 9.1 L Hct 28.4 L MCV 102 H MCH 33 H Plt Count 132 L Lymph % (Auto) [place] % (Auto) 10.4 H Lymph # (Auto) 0.6 L Seg Neutrophils % 72.1 H APTT 36.7 H D-Dimer Potassium Chloride 95.7 L BUN 37 H Creatinine 8.3 H Ferritin AST ALT < 5 L Lactate Dehydrogenase C-Reactive Protein Albumin Urine WBC (Auto) Coronavirus (PCR) 07/28/21 07/29/21 07/30/21 Unknown 06:37 06:40 WBC RBC 2.55 L 2.75 L Hgb 8.5 L 9.1 L Hct 25.8 L 27.5 L MCV 101 H 100 H MCH 33 H 33 H Plt Count 123 L Lymph % (Auto) 9.9 L [place] % (Auto) Lymph # (Auto) 0.6 L Seg Neutrophils % 83.4 H APTT D-Dimer Potassium Chloride BUN Creatinine Ferritin AST ALT Lactate Dehydrogenase C-Reactive Protein Albumin Urine WBC (Auto) > 182.0 H Coronavirus (PCR) 07/30/21 07/30/21 07/31/21 06:40 Unknown 12:13 WBC RBC Hgb Hct MCV MCH Plt Count Lymph % (Auto) [place] % (Auto) Lymph # (Auto) Seg Neutrophils % APTT D-Dimer 750.30 H Potassium Chloride BUN 54 H Creatinine 10.0 H Ferritin AST ALT Lactate Dehydrogenase C-Reactive Protein Albumin Urine WBC (Auto) Coronavirus (PCR) Positive A 07/31/21 07/31/21 08/01/21 12:13 12:13 05:54 WBC RBC Hgb Hct MCV MCH Plt Count Lymph % (Auto) [place] % (Auto) Lymph # (Auto) Seg Neutrophils % APTT D-Dimer Potassium 3.4 L D Chloride BUN 24 H Creatinine 5.1 H Ferritin 2182.0 H AST 44 H ALT Lactate Dehydrogenase 233 H C-Reactive Protein 4.20 H Albumin 3.3 L Urine WBC (Auto) Coronavirus (PCR)
--- NOTE | 2021-08-02 11:21 | Nuclear Medicine Report ---
NUCLEAR MEDICINE PERFUSION SCAN INDICATION: EVALUATE FOR PE. Shortness of breath. Covid 19 positive. CORRELATION: AP chest dated 07/31/2021 RADIOPHARMACEUTICAL: Perfusion: 5.0 mCi Tc-99m MAA given IV FINDINGS: Perfusion images show symmetric and uniform radiotracer distribution throughout bilateral lung zones with no evidence of unmatched segmental perfusion defects. Normal cardiac silhouette. IMPRESSION: Low probability perfusion scan for pulmonary embolism. Signer Name: Henrique Jade Jr, MD Signed: 08/02/2021 11:17 AM Workstation Name: [id number]
--- NOTE | 2021-08-02 13:12 | Progress Note ---
Assessment and Plan Cultures: SARS CoV2 PCR: Positive Hepatitis panel: Nonreactive 07/28/2021 blood culture: 1 out of 4 bottles with coag negative staph 07/30/2021 blood culture: No growth A/P: 70-year-old female with ESRD on HD, hypertension, dementia, Parkinson's disease was admitted from dialysis due to hypotension. Upon evaluation in the ER, noted to be hypotensive, UA showed pyuria, was given IV fluids and antibiotics. Ini tia chest x-ray did not reveal any pneumonia. CT abdomen and pelvis without contrast also did not reveal any acute abnormality. She later developed desaturation, requiring 15 L nonrebreather. Was tested for COVID-19 which came back positive: #COVID-19 infection with hypoxia: Ferritin 2182, CRP 4.2, LDH 233, D-dimer 750. #Acute hypoxic respiratory failure:On ventimask at 10 L/min. #Leukopenia: Likely from COVID-19. Resolved. #ESRD on HD: Renally adjust antibiotics and meds. #UTI: UA showed pyuria, no urine culture done. On empiric ceftriaxone. #Coagulase-negative staph bacteremia: 1 out of 4 bottles positive, likely contaminant. Recs: -continue IV/PO Dexamethasone x 10 days -Due to renal function, not a candidate for Remdesivir per hospital protocol -based on her CRP and current oxygen requirements, not a candidate for Actemra per hospital protocol -prophylactic anticoagulation based on d-dimer per hospital protocol -Completed 5 days of empiric ceftriaxone for UTI Will sign off. Please call with questions or any new concerns. Kelley Kim MD, FACP, [facility] O: [phone] F: [phone] C: [phone] Subjective Date of service: 08/02/21 Principal diagnosis: End-stage renal disease Interval history: No fever. On Venturi mask, weaned down to 10 L/min. Objective - Exam Narrative Exam: Physical Exam (reviewed in chart to minimize risk of transmission) Constitutional: deferred Head, Ears, Nose: deferred Eyes: deferred Neck: deferred Oral: deferred Cardiovascular: deferred Respiratory: deferred GI: deferred Musculoskeletal: deferred Skin: deferred Hem/Lymphatic: deferred Psych: deferred Neurological: deferred - Constitutional Vitals: Vital Signs Temp Pulse Resp BP Pulse Ox 97.7 F 77 18 116/79 98 08/02/21 11:06 08/02/21 11:06 08/02/21 11:06 08/02/21 11:06 08/02/21 11:06 Temperature -Last 24 Hours Temperature 97.7 F Temperature 97.2 F Temperature 98.7 F Temperature 98.3 F - Labs CBC & Chem 7: 07/30/21 06:40 08/01/21 05:54
--- NOTE | 2021-08-02 13:28 | Progress Note ---
Assessment and Plan - Patient Problems (1) Encephalopathy Current Visit: Yes Status: Acute Plan to address problem: Probably toxic encephalopathy. Improving. Continue treating underlying condition and continue monitoring (2) COVID-19 in immunocompromised patient Current Visit: Yes Status: Acute Plan to address problem: Continue IV/PO Dexamethasone Supplemental oxygen/Respiratory support as needed Proning as tolerated Remdesevir contra-indicated due to Kidney failure Prophylactic anticoagulation Trend inflammatory markers to assess disease progression and prognosis (3) Acute hypotension Current Visit: Yes Status: Acute Plan to address problem: Hypotension on dialysis. Probably secondary to sepsis. Blood pressure has responded to volume resuscitation. Continue to monitor blood pressure closely (4) UTI (urinary tract infection) Current Visit: Yes Status: Acute Qualifiers: Urinary tract infection type: acute cystitis Plan to address problem: Completed 5-day course of Rocephin (5) Anemia Current Visit: Yes Status: Chronic Qualifiers: Anemia type: due to chronic kidney disease Chronic kidney disease stage: on chronic dialysis Qualified Code(s): N18.6 - End stage renal disease; D63.1 - Anemia in chronic kidney disease; Z99.2 - Dependence on renal dialysis Plan to address problem: Give erythropoietin on dialysis (6) End stage renal disease Current Visit: Yes Status: Chronic Plan to address problem: Hemodialysis on a Friday, and Friday schedule. We will dialyze again tomorrow (7) Dementia Current Visit: Yes Status: Acute (8) Hypokalemia Current Visit: Yes Status: Acute Plan to address problem: Change to 4K bath Subjective Date of service: 08/02/21 Principal diagnosis: End-stage renal disease Interval history: Patient was sent from dialysis clinic due to hypotension. Patient also with altered mental status. She was started on empiric antibiotics and received intravenous fluids with improvement in blood pressure. Now diagnosed with COVID-19 pneumonia. Patient is now on oxygen via Ventimask. Daughter is at the bedside. She appears less dyspneic. She is still nonverbal but her eyes are open and she follows my movements in the room Objective - Exam Narrative Exam: Frail elderly -[place] female lying in bed on oxygen via high flow nasal cannula HEENT: NCAT, Neck: Supple, no venous distention CVS: S1S2 RRR with no murmur, rub or gallop Chest: Coarse breath sounds with scattered rales Abdomen: Protuberant, soft, nontender, no organomegaly, bowel sounds are present Extremities: No edema Genitourinary deferred Skin warm and dry Neuro: Awake, nonverbal, follows my movements in the room - Vital Signs Vital signs: Vital Signs - 12hr 08/02/21 08/02/21 08/02/21 03:00 05:59 07:54 Temperature 97.2 F L Pulse Rate 74 68 Respiratory 18 Rate Blood Pressure 112/61 O2 Sat by Pulse 90 98 Oximetry 08/02/21 08/02/21 10:00 11:06 Temperature 97.7 F Pulse Rate 77 Respiratory 18 Rate Blood Pressure 116/79 O2 Sat by Pulse 99 98 Oximetry - Lab 07/30/21 06:40 08/01/21 05:54 Most recent lab results Calcium 8.5 mg/dL (8.4-10.2) 08/01/21 05:54 Medications & Allergies - Medications Allergies/Adverse Reactions: Allergies No Known Allergies Allergy (Verified 07/28/21 11:44) Home Medications: Home Medications Medication Instructions Recorded Confirmed Last Taken Type Dexamethasone 6 mg PO DAILY 07/29/21 07/29/21 Unknown History Molnupiravir 400 mg PO BID 07/29/21 07/29/21 Unknown History Vitamin C 500 mg PO DAILY 07/29/21 07/29/21 Unknown History Vitamin D3 1,000 unit PO DAILY 07/29/21 07/29/21 Unknown History Active Medications: Generic Name Dose Route Start Last Admin Trade Name Freq PRN Reason Stop Dose Admin Acetaminophen 650 mg 07/28/21 22:55 07/29/21 06:30 Acetaminophen 325 Mg Tab PO 650 mg Q4H PRN Administration Pain MILD(1-3)/Fever >100.5/VALLE Dexamethasone 6 mg 07/29/21 10:00 08/02/21 09:22 Dexamethasone 2 Mg Tab PO 08/07/21 10:01 6 mg DAILY KALEB Administration Epoetin Nicholas-epbx 10,000 unit 07/29/21 12:28 07/31/21 17:18 Epoetin Nicholas-Epbx 10,000 Unit/1 Ml Vial IV 10,000 unit ANIL PRN Administration hemodialysis Heparin Sodium (Porcine) 5,000 unit 07/28/21 23:15 08/02/21 09:22 Heparin 5,000 Unit/1 Ml Vial SUB-Q 5,000 unit Q12HR KALEB Administration Sodium Chloride 100 mls @ 999 mls/hr 07/29/21 12:28 Nacl 0.9% IV ANIL PRN Hypotension Morphine Sulfate 2 mg 07/28/21 22:55 Morphine 2 Mg/1 Ml Inj IV Q4H PRN Pain, Moderate (4-6) Ondansetron HCl 4 mg 07/28/21 22:55 Ondansetron 4 Mg/2 Ml Inj IV Q8H PRN Nausea And Vomiting Sodium Chloride 10 ml 07/28/21 23:00 08/02/21 09:25 Sodium Chloride 0.9% 10 Ml Flush Syringe IV 10 ml BID KALEB Administration Sodium Chloride 10 ml 07/28/21 22:55 Sodium Chloride 0.9% 10 Ml Flush Syringe IV PRN PRN LINE FLUSH
[2021-08-02] MEDS ORDERED: LIPASE 10,500/PROTEASE 25,000/AMYLASE 43,750 (UNITS) DR CAP FEEDTUBE PRN (13:53)
[2021-08-02] MEDS ORDERED: SODIUM BICARBONATE 325 MG TAB FEEDTUBE PRN (13:53)
[2021-08-02] MEDS ORDERED: SIMPLE SYRUP 15 ML FEEDTUBE PRN ×2 (13:53)
[2021-08-02] MEDS: EPOETIN ALFA-EPBX 10,000 UNIT/1 ML VIAL IV PRN (18:45)
--- NOTE | 2021-08-03 05:32 | XRay Report ---
ABDOMEN 1 VIEW(S) 08/03/2021 4:21 AM INDICATION / CLINICAL INFORMATION: Placement of NG Tube. COMPARISON: None available. FINDINGS: The tip of a weighted feeding tube projects over the body of the stomach. Signer Name: Connor Wilkins MD Signed: 08/03/2021 5:28 AM Workstation Name: [id number]
--- NOTE | 2021-08-03 07:51 | Progress Note ---
Assessment and Plan Assessment and plan: #Acute hypoxic respiratory failure-worsening -likely secondary to COVID -currently on HFNC 12L /40FIO2; will wean as tolerated -continue dexamethasone and supplemental O2 -will wean O2 as tolerated, goal SpO2 >88% -prone patient as able -elevated d-dimer and patient at risk for VTE due to COVID -V/Q Scan and b/l LE dopplers ordered; CTA chest would be better, will discuss with Nephrology so patient can get dialysis after -Pulmonology consulted, assistance appreciated #Systemic inflammatory response syndrome-resolved #Urinary tract infection #Gram positive bacteremia #COVID-19 infection -WBC count wnl, tachycardia, tachypnea resolved -Urine WBCs >180, 4+ bacteria, lg LE; treated -COVID PCR positive: inflammatory markers elevated -BCx 07/28: 1 coagulase-negative staph; likely contaminant -BCx 07/30: No growth to date x72hrs -vancomycin discontinued, s/p rocephinx 5 days (completed 08/02) -Infectious Disease consulted, assistance appreciated #Acute hypotension -BP borderline in the evening but WNL during the daytime -will continue to monitor #End stage renal disease requiring HD -HD on TTS schedule -HD per Nephrology -Nephrology following, assistance appreciated #Anemia-stable -likely secondary to ESRD -epogen with dialysis -will transfuse for Hgb less than 7 #History of dementia #History of Parkinson's disease -Stable -Currently with decreased p.o. intake, will continue with tube feeds -Discussed with daughter, GI consulted for evaluation for PEG tube -Follow-up with neurology outpatient #Advanced care planning -Disease education, care plan, diagnosis, prognosis discussed with next of kin, daughter Selena Mena. Family understands and acknowledges current plan. -Time: +30 minutes History Interval history: Continues to be on venturi mask at 15 L/min. Easily arousable. Patient not speaking. Tube feeds running at 25cc/hr. Hospitalist Physical - Physical exam Narrative exam: GENERAL: Thin elderly woman. In no acute distress. HEENT: Venturi mask 15 L/min CHEST/LUNGS: Coarse breath sound bilaterally on supplemental O2 HEART/CARDIOVASCULAR: RRR. No murmur, rubs or gallops appreciated. ABDOMEN: +BS. NT/ND. NEURO: Unable to assess. EXTREMITIES: LUE AVF w/ thrill. No cyanosis, clubbing or edema. BUE rigidity. PSYCH: Alert to person - Constitutional Vitals: Temp Pulse Resp BP Pulse Ox 98.4 F 94 H 20 99/66 97 08/03/21 06:45 08/03/21 06:45 08/03/21 06:45 08/03/21 06:45 08/03/21 06:45 General appearance: Present: no acute distress, well-nourished Results - Labs CBC & Chem 7: 07/30/21 06:40 08/01/21 05:54 Labs: Laboratory Last Values WBC 9.0 K/mm3 (4.5-11.0) 07/30/21 06:40 RBC 2.75 M/mm3 (3.65-5.03) L 07/30/21 06:40 Hgb 9.1 gm/dl (10.1-14.3) L 07/30/21 06:40 Hct 27.5 % (30.3-42.9) L 07/30/21 06:40 MCV 100 fl (79-97) H 07/30/21 06:40 MCH 33 pg (28-32) H 07/30/21 06:40 MCHC 33 % (30-34) 07/30/21 06:40 RDW 13.9 % (13.2-15.2) 07/30/21 06:40 Plt Count 170 K/mm3 (140-440) 07/30/21 06:40 Lymph % (Auto) 9.9 % (13.4-35.0) L 07/29/21 06:37 [place] % (Auto) 6.3 % (0.0-7.3) 07/29/21 06:37 Eos % (Auto) 0.0 % (0.0-4.3) 07/29/21 06:37 Baso % (Auto) 0.4 % (0.0-1.8) 07/29/21 06:37 Lymph # (Auto) 0.6 K/mm3 (1.2-5.4) L 07/29/21 06:37 [place] # (Auto) 0.4 K/mm3 (0.0-0.8) 07/29/21 06:37 Eos # (Auto) 0.0 K/mm3 (0.0-0.4) 07/29/21 06:37 Baso # (Auto) 0.0 K/mm3 (0.0-0.1) 07/29/21 06:37 Seg Neutrophils % 83.4 % (40.0-70.0) H 07/29/21 06:37 Seg Neutrophils # 5.3 K/mm3 (1.8-7.7) 07/29/21 06:37 APTT 36.7 Sec. (24.2-36.6) H 07/28/21 12:20 D-Dimer 750.30 ng/mlDDU (0-234) H 07/31/21 12:13 Sodium 141 mmol/L (137-145) 08/01/21 05:54 Potassium 3.4 mmol/L (3.6-5.0) L D 08/01/21 05:54 Chloride 99.7 mmol/L (98-107) 08/01/21 05:54 Carbon Dioxide 28 mmol/L (22-30) 08/01/21 05:54 Anion Gap 17 mmol/L 08/01/21 05:54 BUN 24 mg/dL (7-17) H 08/01/21 05:54 Creatinine 5.1 mg/dL (0.6-1.2) H 08/01/21 05:54 Estimated GFR 10 ml/min 08/01/21 05:54 BUN/Creatinine Ratio 5 % 08/01/21 05:54 Glucose 93 mg/dL (65-100) 08/01/21 05:54 POC Glucose 80 mg/dL (70-105) 07/29/21 06:50 Lactic Acid 1.40 mmol/L (0.7-2.0) 07/28/21 12:20 Calcium 8.5 mg/dL (8.4-10.2) 08/01/21 05:54 Ferritin 2182.0 ng/mL (10.0-200.0) H 07/31/21 12:13 Total Bilirubin 0.20 mg/dL (0.1-1.2) 08/01/21 05:54 AST 44 units/L (5-40) H 08/01/21 05:54 ALT 10 units/L (7-56) 08/01/21 05:54 Alkaline Phosphatase 60 units/L (35-129) 08/01/21 05:54 Lactate Dehydrogenase 233 units/L (91-180) H 07/31/21 12:13 C-Reactive Protein 4.20 mg/dL (0.00-1.30) H 07/31/21 12:13 Total Protein 6.7 g/dL (6.3-8.2) 08/01/21 05:54 Albumin 3.3 g/dL (3.9-5) L 08/01/21 05:54 Albumin/Globulin Ratio 1.0 % 08/01/21 05:54 Urine Color Yellow (Yellow) 07/28/21 Unknown Urine Turbidity Turbid (Clear) 07/28/21 Unknown Urine pH 6.0 (5.0-7.0) 07/28/21 Unknown Ur Specific [place] 1.014 (1.003-1.030) 07/28/21 Unknown Urine Protein 100 mg/dl mg/dL (Negative) 07/28/21 Unknown Urine Glucose (UA) Neg mg/dL (Negative) 07/28/21 Unknown Urine Ketones Tr mg/dL (Negative) 07/28/21 Unknown Urine Blood Sm (Negative) 07/28/21 Unknown Urine Nitrite Neg (Negative) 07/28/21 Unknown Urine Bilirubin Neg (Negative) 07/28/21 Unknown Urine Urobilinogen < 2.0 mg/dL (<2.0) 07/28/21 Unknown Ur Leukocyte Esterase Lg (Negative) 07/28/21 Unknown Urine WBC (Auto) > 182.0 /HPF (0.0-6.0) H 07/28/21 Unknown Urine RBC (Auto) 10.0 /HPF (0.0-6.0) 07/28/21 Unknown Urine Bacteria (Auto) 4+ /HPF (Negative) 07/28/21 Unknown Urine WBC Clumps 3+ /HPF 07/28/21 Unknown Random Vancomycin 19.4 ug/mL (0-40.0) 07/31/21 05:27 Coronavirus (PCR) Positive (Negative) A 07/30/21 Unknown Hepatitis A IgM Ab Non-reactive (NonReactive) 07/30/21 09:03 Hep Bs Antigen Non-reactive (Negative) 07/30/21 09:03 Hep B Core IgM Ab Non-reactive (NonReactive) 07/30/21 09:03 Hepatitis C Antibody Non-reactive (NonReactive) 07/30/21 09:03 Microbiology: Microbiology 07/28/21 13:07 Peripheral/Venous Blood Culture - Final NO GROWTH AFTER 5 DAYS 07/30/21 07:31 Peripheral/Venous Blood Culture - Preliminary NO GROWTH AFTER 72 HOURS 07/30/21 08:00 Peripheral/Venous Blood Culture - Preliminary NO GROWTH AFTER 72 HOURS Muniz/IV: Voiding Method External Female Catheter Active Medications - Current Medications Current Medications: Generic Name Dose Route Start Last Admin Trade Name Freq PRN Reason Stop Dose Admin Acetaminophen 650 mg 07/28/21 22:55 07/29/21 06:30 Acetaminophen 325 Mg Tab PO 650 mg Q4H PRN Administration Pain MILD(1-3)/Fever >100.5/VALLE Lipase/Protease/Amylase 1 each 08/02/21 13:53 Lipase 10,500/Protease 25,000/Amylase 43,750 (Units) Dr Cap FEEDTUBE PRN PRN For Clogged Feeding Tube Dexamethasone 6 mg 07/29/21 10:00 08/02/21 09:22 Dexamethasone 2 Mg Tab PO 08/07/21 10:01 6 mg DAILY KALEB Administration Epoetin Nicholsa-epbx 10,000 unit 07/29/21 12:28 08/02/21 18:45 Epoetin Incholas-Epbx 10,000 Unit/1 Ml Vial IV 10,000 unit ANIL PRN Administration hemodialysis Heparin Sodium (Porcine) 5,000 unit 07/28/21 23:15 08/02/21 22:32 Heparin 5,000 Unit/1 Ml Vial SUB-Q 5,000 unit Q12HR KALEB Administration Sodium Chloride 100 mls @ 999 mls/hr 07/29/21 12:28 Nacl 0.9% IV ANIL PRN Hypotension Morphine Sulfate 2 mg 07/28/21 22:55 Morphine 2 Mg/1 Ml Inj IV Q4H PRN Pain, Moderate (4-6) Ondansetron HCl 4 mg 07/28/21 22:55 Ondansetron 4 Mg/2 Ml Inj IV Q8H PRN Nausea And Vomiting Simple Syrup 15 ml 08/02/21 13:53 Simple Syrup 15 Ml FEEDTUBE PRN PRN Hypoglycemia Simple Syrup 30 ml 08/02/21 13:53 Simple Syrup 15 Ml FEEDTUBE PRN PRN Hypoglycemia Sodium Bicarbonate 325 mg 08/02/21 13:53 Sodium Bicarbonate 325 Mg Tab FEEDTUBE PRN PRN For Clogged Feeding Tube Sodium Chloride 10 ml 07/28/21 23:00 08/02/21 22:32 Sodium Chloride 0.9% 10 Ml Flush Syringe IV 10 ml BID KALEB Administration Sodium Chloride 10 ml 07/28/21 22:55 Sodium Chloride 0.9% 10 Ml Flush Syringe IV PRN PRN LINE FLUSH Nutrition/Malnutrition Assess - Dietary Evaluation Nutrition/Malnutrition Findings: Nutrition Notes Start: 07/29/21 15:43 Freq: Status: Active Protocol: Document 08/02/21 14:05 MAGDALENO (Rec: 08/02/21 14:37 [email or web address] [id number]) Nutrition Notes Need for Assessment generated from: MD Order Initial or Follow up Reassessment Current Diagnosis CKD (stage V CKD),Hypertension ,Respiratory Failure Other Pertinent Diagnosis ESRD+HD, UTI, Anemia, COVID-19 , SIRS, Hypotension, Encephalopathy, Demen... Current Diet TF-Nepro w/CARBSTEADY @ 35 ml/ hr (from D 08/02). Labs/Tests 08/02: K 3.4, BUN 24, Crea 5.1 . Pertinent Medications 08/02: Nutritionally unremarkable. Height 5 ft 4 in Weight 58 kg [place] Body Weight (kg) 54.54 BMI 21.9 Weight change and time frame No body weight change reported in 4 days. Weight Status Appropriate Subjective/Other Information RD consult for write/manage TF . Pt;s PO intake of meals has been Negligible (0%), according to ADL notes, I will prescribe TF as an alternative way to deliver nutrition to Pt. Pt is on Venturi Mask+, O2 saturation @ 99%, according to Physical Assessment History notes. Percent of energy/protein needs met: Prescribed TF-Nepro w/ CARBSTEADY @ 35 ml/hr provides for energy/protein needs (1, 508 Kcal/68 g) during LOS; 100 % Kcal; 97% AA. Burn Absent Trauma Absent GI Symptoms None Difficulty In Swallowing Food Allergy No Skin Integrity/Comment Assessment WNL. Current % PO Negligible Minimum of two criteria No Fluid Accumulation N/A Reduced [employer] Strength N/A (non-severe) Protein-Calorie Malnutrition N\A #1 Nutrition Diagnosis Inadequate protein-energy intake Comments: Pt;s PO intake of meals has been Negligible (0%), according to ADL notes. Diagnosis Progress(for reassessment Worsened documentation) Is patient on ventilator? No Is Patient Ambulatory and/or Out of Bed No REE-([place]-St. Jeor-confined to bed) 1308.024 Kcal/Kg value to use for calculation 26 Approximate Energy Requirements Using 1508 kcal/Kg Calculation Used for Recommendations Kcal/kg Additional Notes Protein: >1.2 g/Kg ABW; >70 g/ day. Fluids: 1 ml/Kcal, or as per MD. Nutrition Intervention Change Diet Order: Discontinued. Nutrition Support: Start TF-Nepro w/CARBSTEADY @ 35 ml/hr. Flush: 150 ml water Q 4 hr, or as per MD. Kcal 1,508 Protein (gm) 68 Carbohydrates (gm) 135 Fat (gm) 80 Fluid (mL) 609 Fiber (gm) 11 % RDI: 100% Kcal; 97% AA. Add Supplement/Snack (indicate name/kcal Discontinued. /protein ) Goal #1 Provide at least 75% of energy /protein needs through Enteral Feeding during LOS. Goal #2 Adjust the dietary intervention to better serve Pt's needs and clinical conditions during LOS. Goal #3 Maintain body weight within +/ -3% of admission body weight during LOS. Follow-Up By: 08/03/21 Additional Comments Start monitoring TF tolerance and BM.
--- NOTE | 2021-08-03 08:32 | Progress Note ---
Assessment and Plan - Patient Problems (1) Encephalopathy Current Visit: Yes Status: Acute Plan to address problem: Probably toxic encephalopathy. Improving. Continue treating underlying condition and continue monitoring (2) COVID-19 in immunocompromised patient Current Visit: Yes Status: Acute Plan to address problem: Continue IV/PO Dexamethasone Supplemental oxygen/Respiratory support as needed Proning as tolerated Remdesevir contra-indicated due to Kidney failure Prophylactic anticoagulation Trend inflammatory markers to assess disease progression and prognosis (3) Acute hypotension Current Visit: Yes Status: Acute Plan to address problem: Hypotension on dialysis. Probably secondary to sepsis. Blood pressure has responded to volume resuscitation. Continue to monitor blood pressure closely (4) UTI (urinary tract infection) Current Visit: Yes Status: Acute Qualifiers: Urinary tract infection type: acute cystitis Plan to address problem: Completed 5-day course of Rocephin (5) Anemia Current Visit: Yes Status: Chronic Qualifiers: Anemia type: due to chronic kidney disease Chronic kidney disease stage: on chronic dialysis Qualified Code(s): N18.6 - End stage renal disease; D63.1 - Anemia in chronic kidney disease; Z99.2 - Dependence on renal dialysis Plan to address problem: Give erythropoietin on dialysis (6) End stage renal disease Current Visit: Yes Status: Chronic Plan to address problem: Hemodialysis on a Friday, and Friday schedule. We will dialyze again tomorrow (7) Dementia Current Visit: Yes Status: Acute (8) Hypokalemia Current Visit: Yes Status: Acute Plan to address problem: Dialysis on a 4K bath and follow-up potassium Subjective Date of service: 08/03/21 Principal diagnosis: End-stage renal disease Interval history: Patient was sent from dialysis clinic due to hypotension. Patient also with altered mental status. She was started on empiric antibiotics and received intravenous fluids with improvement in blood pressure. Now diagnosed with COVID-19 pneumonia. Has completed 5-day course of Rocephin for urinary tract infection. Patient is now on oxygen via Ventimask. She is still nonverbal but her eyes are open and she follows my movements in the room Objective - Exam Narrative Exam: Frail elderly -[place] Citizen female lying in bed on oxygen via Ventimask HEENT: NCAT, Neck: Supple, no venous distention CVS: S1S2 RRR with no murmur, rub or gallop Chest: Coarse breath sounds with scattered rales Abdomen: Protuberant, soft, nontender, no organomegaly, bowel sounds are present Extremities: No edema Genitourinary deferred Skin warm and dry Neuro: Awake, nonverbal, follows my movements in the room - Vital Signs Vital signs: Vital Signs - 12hr 08/02/21 08/02/21 08/02/21 22:00 23:34 23:35 Temperature 97.4 F L Pulse Rate 77 Respiratory 20 Rate Blood Pressure 136/91 O2 Sat by Pulse 97 60 L 90 Oximetry 08/03/21 08/03/21 03:00 06:45 Temperature 98.4 F Pulse Rate 95 H 94 H Respiratory 20 Rate Blood Pressure 99/66 O2 Sat by Pulse 97 Oximetry - Lab 07/30/21 06:40 08/01/21 05:54 Most recent lab results Calcium 8.5 mg/dL (8.4-10.2) 08/01/21 05:54 Medications & Allergies - Medications Allergies/Adverse Reactions: Allergies No Known Allergies Allergy (Verified 07/28/21 11:44) Home Medications: Home Medications Medication Instructions Recorded Confirmed Last Taken Type Dexamethasone 6 mg PO DAILY 07/29/21 07/29/21 Unknown History Molnupiravir 400 mg PO BID 07/29/21 07/29/21 Unknown History Vitamin C 500 mg PO DAILY 07/29/21 07/29/21 Unknown History Vitamin D3 1,000 unit PO DAILY 07/29/21 07/29/21 Unknown History Active Medications: Generic Name Dose Route Start Last Admin Trade Name Freq PRN Reason Stop Dose Admin Acetaminophen 650 mg 07/28/21 22:55 07/29/21 06:30 Acetaminophen 325 Mg Tab PO 650 mg Q4H PRN Administration Pain MILD(1-3)/Fever >100.5/VALLE Lipase/Protease/Amylase 1 each 08/02/21 13:53 Lipase 10,500/Protease 25,000/Amylase 43,750 (Units) Dr Michel FEEDTUBE PRN PRN For Clogged Feeding Tube Dexamethasone 6 mg 07/29/21 10:00 08/02/21 09:22 Dexamethasone 2 Mg Tab PO 08/07/21 10:01 6 mg DAILY KALEB Administration Epoetin Nicholas-epbx 10,000 unit 07/29/21 12:28 08/02/21 18:45 Epoetin Nicholas-Epbx 10,000 Unit/1 Ml Vial IV 10,000 unit ANIL PRN Administration hemodialysis Heparin Sodium (Porcine) 5,000 unit 07/28/21 23:15 08/02/21 22:32 Heparin 5,000 Unit/1 Ml Vial SUB-Q 5,000 unit Q12HR KALEB Administration Sodium Chloride 100 mls @ 999 mls/hr 07/29/21 12:28 Nacl 0.9% IV ANIL PRN Hypotension Morphine Sulfate 2 mg 07/28/21 22:55 Morphine 2 Mg/1 Ml Inj IV Q4H PRN Pain, Moderate (4-6) Ondansetron HCl 4 mg 07/28/21 22:55 Ondansetron 4 Mg/2 Ml Inj IV Q8H PRN Nausea And Vomiting Simple Syrup 15 ml 08/02/21 13:53 Simple Syrup 15 Ml FEEDTUBE PRN PRN Hypoglycemia Simple Syrup 30 ml 08/02/21 13:53 Simple Syrup 15 Ml FEEDTUBE PRN PRN Hypoglycemia Sodium Bicarbonate 325 mg 08/02/21 13:53 Sodium Bicarbonate 325 Mg Tab FEEDTUBE PRN PRN For Clogged Feeding Tube Sodium Chloride 10 ml 07/28/21 23:00 08/02/21 22:32 Sodium Chloride 0.9% 10 Ml Flush Syringe IV 10 ml BID KALEB Administration Sodium Chloride 10 ml 07/28/21 22:55 Sodium Chloride 0.9% 10 Ml Flush Syringe IV PRN PRN LINE FLUSH
[2021-08-03] MEDS: HEPARIN 5,000 UNIT/1 ML VIAL SUB-Q SCH ×2 (09:03→23:09)
[2021-08-03] MEDS: DEXAMETHASONE 2 MG TAB PO SCH (09:04)
--- NOTE | 2021-08-03 10:45 | Progress Note ---
Assessment and Plan 70 y/o female originally admitted for sirs, now found to be covid positive and in acute respiratory failure after having hypotension and fluid resuscitation. 08/03/21: Same recs as before. My partner is rounding this weekend and see at least once this weekend. 08/02/21: Continue to prone as tolerated. Steroids. Wean FiO2 for sats >88%. Assess for PE. HD per renal. Guarded prognosis. 08/01/21: Will need to discusss with renal but given this acute change in oxygen requirement but no real change on CXR, need to consider CTA to rule out pulmonary embolism as having COVID does make you prone to VTE. Would not treat empirically. If renal ok and can dialyze the next day would obtain CTA to assess for PE 1. Repeat CXR now 2. Agree with steroids 3. Not a candidate for remdesivir but would ask ID if she meets actemra criteri a 4. Keep sats >88% 5. If cXR shows worsening volume status, will ask renal if able to pull more f luid now that hypotension has resolved 6. Encourage patient to prone as long as tolerated 7. Guarded prognosis given ESRD on HD Subjective Date of service: 08/03/21 Principal diagnosis: End-stage renal disease Interval history: No acute events. Still on the same venturi settings. Objective Vital Signs - 12hr 08/02/21 08/02/21 08/03/21 23:34 23:35 03:00 Temperature 97.4 F L Pulse Rate 77 95 H Respiratory 20 Rate Blood Pressure 136/91 O2 Sat by Pulse 60 L 90 Oximetry 08/03/21 08/03/21 06:45 10:00 Temperature 98.4 F Pulse Rate 94 H Respiratory 20 Rate Blood Pressure 99/66 O2 Sat by Pulse 97 96 Oximetry CBC and BMP: 07/30/21 06:40 08/01/21 05:54 ABG, PT/INR, D-dimer: PT/INR, D-dimer D-Dimer 750.30 ng/mlDDU (0-234) H 07/31/21 12:13 Abnormal lab findings: Abnormal Labs 07/28/21 07/28/21 07/28/21 12:20 12:20 12:20 WBC 3.4 L RBC 2.80 L Hgb 9.1 L Hct 28.4 L MCV 102 H MCH 33 H Plt Count 132 L Lymph % (Auto) [place] % (Auto) 10.4 H Lymph # (Auto) 0.6 L Seg Neutrophils % 72.1 H APTT 36.7 H D-Dimer Potassium Chloride 95.7 L BUN 37 H Creatinine 8.3 H Ferritin AST ALT < 5 L Lactate Dehydrogenase C-Reactive Protein Albumin Urine WBC (Auto) Coronavirus (PCR) 07/28/21 07/29/21 07/30/21 Unknown 06:37 06:40 WBC RBC 2.55 L 2.75 L Hgb 8.5 L 9.1 L Hct 25.8 L 27.5 L MCV 101 H 100 H MCH 33 H 33 H Plt Count 123 L Lymph % (Auto) 9.9 L [place] % (Auto) Lymph # (Auto) 0.6 L Seg Neutrophils % 83.4 H APTT D-Dimer Potassium Chloride BUN Creatinine Ferritin AST ALT Lactate Dehydrogenase C-Reactive Protein Albumin Urine WBC (Auto) > 182.0 H Coronavirus (PCR) 07/30/21 07/30/21 07/31/21 06:40 Unknown 12:13 WBC RBC Hgb Hct MCV MCH Plt Count Lymph % (Auto) [place] % (Auto) Lymph # (Auto) Seg Neutrophils % APTT D-Dimer 750.30 H Potassium Chloride BUN 54 H Creatinine 10.0 H Ferritin AST ALT Lactate Dehydrogenase C-Reactive Protein Albumin Urine WBC (Auto) Coronavirus (PCR) Positive A 07/31/21 07/31/21 08/01/21 12:13 12:13 05:54 WBC RBC Hgb Hct MCV MCH Plt Count Lymph % (Auto) [place] % (Auto) Lymph # (Auto) Seg Neutrophils % APTT D-Dimer Potassium 3.4 L D Chloride BUN 24 H Creatinine 5.1 H Ferritin 2182.0 H AST 44 H ALT Lactate Dehydrogenase 233 H C-Reactive Protein 4.20 H Albumin 3.3 L Urine WBC (Auto) Coronavirus (PCR)
--- NOTE | 2021-08-03 15:16 | Gastroenterology Consultation ---
History of Present Illness - Reason for Consult Consult date: 08/03/21 Neurogenic Dysphagia Requesting physician: DANIA HALL - History of Present Illness The patient is a 71 yo female with SIRS/COVID and bacteremia with ESRD/HD and Parkinsons. We are consulted for a PEG tube. Note made of worsening O2 requirements. No prior PEG per history, but mental status worsening and poor PO intake. Failed ST eval. Unfortunately pulmonary status also worsening. Past History Past Medical History: ESRD, hypertension, other (Parkinson's disease, dementia, COVID, SIRS (this admit)) Past Surgical History: Other (Vascular access R arm) Social history: full code (Lives in snf) Family history: hypertension Medications and Allergies Allergies Allergy/AdvReac Type Severity Reaction Status Date / Time No Known Allergies Allergy Verified 07/28/21 11:44 Home Medications Medication Instructions Recorded Confirmed Last Taken Type Dexamethasone 6 mg PO DAILY 07/29/21 07/29/21 Unknown History Molnupiravir 400 mg PO BID 07/29/21 07/29/21 Unknown History Vitamin C 500 mg PO DAILY 07/29/21 07/29/21 Unknown History Vitamin D3 1,000 unit PO DAILY 07/29/21 07/29/21 Unknown History Active Meds: Active Medications Acetaminophen (Acetaminophen 325 Mg Tab) 650 mg PO Q4H PRN PRN Reason: Pain MILD(1-3)/Fever >100.5/VALLE Last Admin: 07/29/21 06:30 Dose: 650 mg Lipase/Protease/Amylase (Lipase 10,500/Protease 25,000/Amylase 43,750 (Units) Dr Michel) 1 each FEEDTUBE PRN PRN PRN Reason: For Clogged Feeding Tube Dexamethasone (Dexamethasone 2 Mg Tab) 6 mg PO DAILY KALEB Stop: 08/07/21 10:01 Last Admin: 08/03/21 09:04 Dose: 6 mg Epoetin Nicholas-epbx (Epoetin Nicholas-Epbx 10,000 Unit/1 Ml Vial) 10,000 unit IV ANIL PRN PRN Reason: hemodialysis Last Admin: 08/02/21 18:45 Dose: 10,000 unit Heparin Sodium (Porcine) (Heparin 5,000 Unit/1 Ml Vial) 5,000 unit SUB-Q Q12HR KALEB Last Admin: 08/03/21 09:03 Dose: 5,000 unit Sodium Chloride (Nacl 0.9%) 100 mls @ 999 mls/hr IV ANIL PRN PRN Reason: Hypotension Morphine Sulfate (Morphine 2 Mg/1 Ml Inj) 2 mg IV Q4H PRN PRN Reason: Pain, Moderate (4-6) Ondansetron HCl (Ondansetron 4 Mg/2 Ml Inj) 4 mg IV Q8H PRN PRN Reason: Nausea And Vomiting Simple Syrup (Simple Syrup 15 Ml) 15 ml FEEDTUBE PRN PRN PRN Reason: Hypoglycemia Simple Syrup (Simple Syrup 15 Ml) 30 ml FEEDTUBE PRN PRN PRN Reason: Hypoglycemia Sodium Bicarbonate (Sodium Bicarbonate 325 Mg Tab) 325 mg FEEDTUBE PRN PRN PRN Reason: For Clogged Feeding Tube Sodium Chloride (Sodium Chloride 0.9% 10 Ml Flush Syringe) 10 ml IV BID KALEB Last Admin: 08/03/21 09:04 Dose: 10 ml Sodium Chloride (Sodium Chloride 0.9% 10 Ml Flush Syringe) 10 ml IV PRN PRN PRN Reason: LINE FLUSH I HAVE REVIEWED/RECONCILED MEDICATIONS Review of Systems - Review of Systems ROS unobtainable: due to mental status Exam - Constitutional Vital Signs: Temp Pulse Resp BP Pulse Ox 99.2 F 93 H 22 146/96 95 08/03/21 11:42 08/03/21 11:42 08/03/21 11:42 08/03/21 11:42 08/03/21 12:58 General appearance: mild distress ((Respiratory)) - EENT Eyes: PERRL, EOM intact ENT: hearing intact, clear oral mucosa, no thrush - Neck Neck: supple, normal ROM - Respiratory Respiratory effort: labored Respiratory: bilateral: diminished - Cardiovascular Rhythm: regular Heart Sounds: Present: S1 & S2 Extremities: no ischemia, No edema - Gastrointestinal General gastrointestinal: Present: soft, non-tender, non-distended - Neurologic Neurological: disoriented - Psychiatric Psychiatric: other (Unable to assess) - Labs CBC & Chem 7: 07/30/21 06:40 08/01/21 05:54 Assessment and Plan - Patient Problems (1) Neurogenic dysphagia Current Visit: Yes Status: Acute Plan to address problem: - Due to the patient's worsening respiratory status, would not be able to place PEG at present (unless intubated). - OK to feed with [place] for now, if felt safe by Pulmonary. - We will re-assess Friday for possible PEG on Friday; please consult us if needed prior to that.
[2021-08-04 06:11] LABS: Calcium 8.7 mg/dL (8.4-10.2)
--- NOTE | 2021-08-04 07:56 | Progress Note ---
Assessment and Plan Assessment and plan: #Acute hypoxic respiratory failure-worsening -likely secondary to COVID -currently on Venturi mask at 8 L/min; will wean as tolerated -continue dexamethasone and supplemental O2 -will wean O2 as tolerated, goal SpO2 >88% -prone patient as able -V/Q Scan and b/l LE dopplers low probability for PE and no DVT respectively -Pulmonology consulted, assistance appreciated #Systemic inflammatory response syndrome-resolved #Urinary tract infection #Gram positive bacteremia #COVID-19 infection -WBC count wnl, tachycardia, tachypnea resolved -Urine WBCs >180, 4+ bacteria, lg LE; treated -COVID PCR positive: inflammatory markers elevated -BCx 07/28: 1/4 coagulase-negative staph; likely contaminant -BCx 07/30: No growth to date x72hrs -vancomycin discontinued, s/p rocephinx 5 days (completed 08/02) -Infectious Disease consulted, assistance appreciated #Acute hypotension -BP borderline in the evening but WNL during the daytime -will continue to monitor #End stage renal disease requiring HD -HD on TTS schedule -HD per Nephrology -Nephrology following, assistance appreciated #Anemia-stable -likely secondary to ESRD -epogen with dialysis -will transfuse for Hgb less than 7 #History of dementia #History of Parkinson's disease #Neurogenic dysphagia -continue with tube feeds -Discussed with daughter, GI consulted for evaluation for PEG tube -Follow-up with neurology outpatient #Advanced care planning -Disease education, care plan, diagnosis, prognosis discussed with next of kin, daughter Selena Mena. Family understands and acknowledges current plan. -Time: +30 minutes History Interval history: Venturi mask weaned down to 8 L/min. Easily arousable. Patient not speaking. Tube feeds running. Hospitalist Physical - Physical exam Narrative exam: GENERAL: Thin elderly woman. In no acute distress. HEENT: Venturi mask 8 L/min CHEST/LUNGS: Coarse breath sound bilaterally on supplemental O2 HEART/CARDIOVASCULAR: RRR. No murmur, rubs or gallops appreciated. ABDOMEN: +BS. NT/ND. NEURO: Unable to assess. EXTREMITIES: LUE AVF w/ thrill. No cyanosis, clubbing or edema. BUE rigidity. PSYCH: Alert to person - Constitutional Vitals: Temp Pulse Resp BP Pulse Ox 98.6 F 71 18 130/78 96 08/04/21 03:53 08/04/21 03:53 08/04/21 04:20 08/04/21 03:53 08/04/21 04:20 General appearance: Present: no acute distress, well-nourished Results - Labs CBC & Chem 7: 07/30/21 06:40 08/04/21 05:34 Labs: Laboratory Last Values WBC 9.0 K/mm3 (4.5-11.0) 07/30/21 06:40 RBC 2.75 M/mm3 (3.65-5.03) L 07/30/21 06:40 Hgb 9.1 gm/dl (10.1-14.3) L 07/30/21 06:40 Hct 27.5 % (30.3-42.9) L 07/30/21 06:40 MCV 100 fl (79-97) H 07/30/21 06:40 MCH 33 pg (28-32) H 07/30/21 06:40 MCHC 33 % (30-34) 07/30/21 06:40 RDW 13.9 % (13.2-15.2) 07/30/21 06:40 Plt Count 170 K/mm3 (140-440) 07/30/21 06:40 Lymph % (Auto) 9.9 % (13.4-35.0) L 07/29/21 06:37 [place] % (Auto) 6.3 % (0.0-7.3) 07/29/21 06:37 Eos % (Auto) 0.0 % (0.0-4.3) 07/29/21 06:37 Baso % (Auto) 0.4 % (0.0-1.8) 07/29/21 06:37 Lymph # (Auto) 0.6 K/mm3 (1.2-5.4) L 07/29/21 06:37 [place] # (Auto) 0.4 K/mm3 (0.0-0.8) 07/29/21 06:37 Eos # (Auto) 0.0 K/mm3 (0.0-0.4) 07/29/21 06:37 Baso # (Auto) 0.0 K/mm3 (0.0-0.1) 07/29/21 06:37 Seg Neutrophils % 83.4 % (40.0-70.0) H 07/29/21 06:37 Seg Neutrophils # 5.3 K/mm3 (1.8-7.7) 07/29/21 06:37 APTT 36.7 Sec. (24.2-36.6) H 07/28/21 12:20 D-Dimer 750.30 ng/mlDDU (0-234) H 07/31/21 12:13 Sodium 140 mmol/L (137-145) 08/04/21 05:34 Potassium 3.8 mmol/L (3.6-5.0) 08/04/21 05:34 Chloride 99.7 mmol/L (98-107) 08/04/21 05:34 Carbon Dioxide 24 mmol/L (22-30) 08/04/21 05:34 Anion Gap 20 mmol/L 08/04/21 05:34 BUN 39 mg/dL (7-17) H 08/04/21 05:34 Creatinine 6.5 mg/dL (0.6-1.2) H 08/04/21 05:34 Estimated GFR 8 ml/min 08/04/21 05:34 BUN/Creatinine Ratio 6 % 08/04/21 05:34 Glucose 145 mg/dL (65-100) H 08/04/21 05:34 POC Glucose 80 mg/dL (70-105) 07/29/21 06:50 Lactic Acid 1.40 mmol/L (0.7-2.0) 07/28/21 12:20 Calcium 8.7 mg/dL (8.4-10.2) 08/04/21 05:34 Ferritin 2182.0 ng/mL (10.0-200.0) H 07/31/21 12:13 Total Bilirubin 0.20 mg/dL (0.1-1.2) 08/01/21 05:54 AST 44 units/L (5-40) H 08/01/21 05:54 ALT 10 units/L (7-56) 08/01/21 05:54 Alkaline Phosphatase 60 units/L (35-129) 08/01/21 05:54 Lactate Dehydrogenase 233 units/L (91-180) H 07/31/21 12:13 C-Reactive Protein 4.20 mg/dL (0.00-1.30) H 07/31/21 12:13 Total Protein 6.7 g/dL (6.3-8.2) 08/01/21 05:54 Albumin 3.3 g/dL (3.9-5) L 08/01/21 05:54 Albumin/Globulin Ratio 1.0 % 08/01/21 05:54 Urine Color Yellow (Yellow) 07/28/21 Unknown Urine Turbidity Turbid (Clear) 07/28/21 Unknown Urine pH 6.0 (5.0-7.0) 07/28/21 Unknown Ur Specific [place] 1.014 (1.003-1.030) 07/28/21 Unknown Urine Protein 100 mg/dl mg/dL (Negative) 07/28/21 Unknown Urine Glucose (UA) Neg mg/dL (Negative) 07/28/21 Unknown Urine Ketones Tr mg/dL (Negative) 07/28/21 Unknown Urine Blood Sm (Negative) 07/28/21 Unknown Urine Nitrite Neg (Negative) 07/28/21 Unknown Urine Bilirubin Neg (Negative) 07/28/21 Unknown Urine Urobilinogen < 2.0 mg/dL (<2.0) 07/28/21 Unknown Ur Leukocyte Esterase Lg (Negative) 07/28/21 Unknown Urine WBC (Auto) > 182.0 /HPF (0.0-6.0) H 07/28/21 Unknown Urine RBC (Auto) 10.0 /HPF (0.0-6.0) 07/28/21 Unknown Urine Bacteria (Auto) 4+ /HPF (Negative) 07/28/21 Unknown Urine WBC Clumps 3+ /HPF 07/28/21 Unknown Random Vancomycin 19.4 ug/mL (0-40.0) 07/31/21 05:27 Coronavirus (PCR) Positive (Negative) A 07/30/21 Unknown Hepatitis A IgM Ab Non-reactive (NonReactive) 07/30/21 09:03 Hep Bs Antigen Non-reactive (Negative) 07/30/21 09:03 Hep B Core IgM Ab Non-reactive (NonReactive) 07/30/21 09:03 Hepatitis C Antibody Non-reactive (NonReactive) 07/30/21 09:03 Microbiology: Microbiology 07/30/21 08:00 Peripheral/Venous Blood Culture - Preliminary NO GROWTH AFTER 4 DAYS 07/30/21 07:31 Peripheral/Venous Blood Culture - Preliminary NO GROWTH AFTER 4 DAYS Muniz/IV: Voiding Method External Female Catheter Active Medications - Current Medications Current Medications: Generic Name Dose Route Start Last Admin Trade Name Freq PRN Reason Stop Dose Admin Acetaminophen 650 mg 07/28/21 22:55 07/29/21 06:30 Acetaminophen 325 Mg Tab PO 650 mg Q4H PRN Administration Pain MILD(1-3)/Fever >100.5/VALLE Lipase/Protease/Amylase 1 each 08/02/21 13:53 Lipase 10,500/Protease 25,000/Amylase 43,750 (Units) Dr Michel FEEDTUBE PRN PRN For Clogged Feeding Tube Dexamethasone 6 mg 07/29/21 10:00 08/03/21 09:04 Dexamethasone 2 Mg Tab PO 08/07/21 10:01 6 mg DAILY KALEB Administration Epoetin Nicholas-epbx 10,000 unit 07/29/21 12:28 08/02/21 18:45 Epoetin Nicholas-Epbx 10,000 Unit/1 Ml Vial IV 10,000 unit ANIL PRN Administration hemodialysis Heparin Sodium (Porcine) 5,000 unit 07/28/21 23:15 08/03/21 23:09 Heparin 5,000 Unit/1 Ml Vial SUB-Q 5,000 unit Q12HR KALEB Administration Sodium Chloride 100 mls @ 999 mls/hr 07/29/21 12:28 Nacl 0.9% IV ANIL PRN Hypotension Morphine Sulfate 2 mg 07/28/21 22:55 Morphine 2 Mg/1 Ml Inj IV Q4H PRN Pain, Moderate (4-6) Ondansetron HCl 4 mg 07/28/21 22:55 Ondansetron 4 Mg/2 Ml Inj IV Q8H PRN Nausea And Vomiting Simple Syrup 15 ml 08/02/21 13:53 Simple Syrup 15 Ml FEEDTUBE PRN PRN Hypoglycemia Simple Syrup 30 ml 08/02/21 13:53 Simple Syrup 15 Ml FEEDTUBE PRN PRN Hypoglycemia Sodium Bicarbonate 325 mg 08/02/21 13:53 Sodium Bicarbonate 325 Mg Tab FEEDTUBE PRN PRN For Clogged Feeding Tube Sodium Chloride 10 ml 07/28/21 23:00 08/03/21 23:09 Sodium Chloride 0.9% 10 Ml Flush Syringe IV 10 ml BID KALEB Administration Sodium Chloride 10 ml 07/28/21 22:55 Sodium Chloride 0.9% 10 Ml Flush Syringe IV PRN PRN LINE FLUSH Nutrition/Malnutrition Assess - Dietary Evaluation Nutrition/Malnutrition Findings: Nutrition Notes Start: 07/29/21 15:43 Freq: Status: Active Protocol: Document 08/03/21 11:30 MAGDALENO (Rec: 08/03/21 11:38 MAGDALENO [id number]) Nutrition Notes Initial or Follow up Brief Note Current Diagnosis CKD (stage V CKD),Hypertension ,Respiratory Failure Other Pertinent Diagnosis ESRD+HD, UTI, Anemia, COVID-19 , SIRS, Hypotension, Encephalopathy, Demen... Current Diet TF-Nepro w/CARBSTEADY @ 35 ml/ hr (from D 08/02). Height 5 ft 4 in Weight 58 kg [place] Body Weight (kg) 54.54 BMI 21.9 Weight change and time frame No body weight change reported in 5 days. Weight Status Appropriate Subjective/Other Information RD consult for routine F/u on TF tolerance.continuation assessment. TF continues as prescribed, and well tolerated, according to RN notes. Pt is on Venturi Mask+, O2 saturation @ 96%, according to Physical Assessment History notes. Percent of energy/protein needs met: Prescribed TF-Nepro w/ CARBSTEADY @ 35 ml/hr provides for energy/protein needs (1, 508 Kcal/68 g) during LOS; 100 % Kcal; 97% AA. #1 Nutrition Diagnosis Inadequate protein-energy intake Comments: Prescribed TF-Nepro w/ CARBSTEADY @ 35 ml/hr provides for energy/protein needs (1, 508 Kcal/68 g) during LOS; 100 % Kcal; 97% AA. Diagnosis Progress(for reassessment Resolved documentation) Is patient on ventilator? No Is Patient Ambulatory and/or Out of Bed No REE-([facility]-confined to bed) 1308.024 Kcal/Kg value to use for calculation 26 Approximate Energy Requirements Using 1508 kcal/Kg Calculation Used for Recommendations Kcal/kg Additional Notes Protein: >1.2 g/Kg ABW; >70 g/ day. Fluids: 1 ml/Kcal, or as per MD. Nutrition Intervention Nutrition Support: Continue TF-Nepro w/CARBSTEADY @ 35 ml/hr. Flush: 150 ml water Q 4 hr, or as per MD. Kcal 1,508 Protein (gm) 68 Carbohydrates (gm) 135 Fat (gm) 80 Fluid (mL) 609 Fiber (gm) 11 % RDI: 100% Kcal; 97% AA. Goal #1 Provide at least 75% of energy /protein needs through Enteral Feeding during LOS. Goal #2 Maintain body weight within +/ -3% of admission body weight during LOS. Follow-Up By: 08/10/21 Additional Comments Continue monitoring TF tolerance and BM.
[2021-08-04] MEDS: DEXAMETHASONE 2 MG TAB PO SCH (09:15)
[2021-08-04] MEDS: HEPARIN 5,000 UNIT/1 ML VIAL SUB-Q SCH ×2 (09:15→21:24)
--- NOTE | 2021-08-04 10:00 | Progress Note ---
Assessment and Plan - Patient Problems (1) Acute respiratory failure with hypoxia Current Visit: Yes Status: Acute (2) COVID-19 in immunocompromised patient Current Visit: Yes Status: Acute (3) Dementia Current Visit: Yes Status: Acute (4) Encephalopathy Current Visit: Yes Status: Acute (5) Neurogenic dysphagia Current Visit: Yes Status: Acute (6) SIRS (systemic inflammatory response syndrome) Current Visit: Yes Status: Acute (7) Anemia Current Visit: Yes Status: Chronic Qualifiers: Anemia type: due to chronic kidney disease Chronic kidney disease stage: on chronic dialysis Qualified Code(s): N18.6 - End stage renal disease; D63.1 - Anemia in chronic kidney disease; Z99.2 - Dependence on renal dialysis (8) End stage renal disease Current Visit: Yes Status: Chronic Subjective Principal diagnosis: End-stage renal disease Interval history: eyes open. non verbal Objective Vital Signs - 12hr 08/03/21 08/03/21 08/03/21 23:07 23:08 23:10 Temperature 97.6 F Pulse Rate 84 81 Respiratory 18 18 Rate Blood Pressure 132/83 O2 Sat by Pulse 95 96 96 Oximetry 08/04/21 08/04/21 08/04/21 03:53 04:20 08:21 Temperature 98.6 F Pulse Rate 71 Respiratory 16 18 Rate Blood Pressure 130/78 O2 Sat by Pulse 85 96 99 Oximetry Constitutional: no acute distress, alert, other (on vent mask) Eyes: non-icteric ENT: oropharynx moist Neck: supple Effort: normal Ascultation: Bilateral: rhonchi Cardiovascular: regular rate and rhythm Gastrointestinal: normoactive bowel sounds, soft, non-tender, non-distended Extremities: no cyanosis Neurologic: other (non verbal. opens eyes to tactile stimuli.) CBC and BMP: 07/30/21 06:40 08/04/21 05:34 ABG, PT/INR, D-dimer: PT/INR, D-dimer D-Dimer 750.30 ng/mlDDU (0-234) H 07/31/21 12:13 Abnormal lab findings: Abnormal Labs 07/28/21 07/28/21 07/28/21 12:20 12:20 12:20 WBC 3.4 L RBC 2.80 L Hgb 9.1 L Hct 28.4 L MCV 102 H MCH 33 H Plt Count 132 L Lymph % (Auto) [place] % (Auto) 10.4 H Lymph # (Auto) 0.6 L Seg Neutrophils % 72.1 H APTT 36.7 H D-Dimer Potassium Chloride 95.7 L BUN 37 H Creatinine 8.3 H Glucose Ferritin AST ALT < 5 L Lactate Dehydrogenase C-Reactive Protein Albumin Urine WBC (Auto) Coronavirus (PCR) 07/28/21 07/29/21 07/30/21 Unknown 06:37 06:40 WBC RBC 2.55 L 2.75 L Hgb 8.5 L 9.1 L Hct 25.8 L 27.5 L MCV 101 H 100 H MCH 33 H 33 H Plt Count 123 L Lymph % (Auto) 9.9 L [place] % (Auto) Lymph # (Auto) 0.6 L Seg Neutrophils % 83.4 H APTT D-Dimer Potassium Chloride BUN Creatinine Glucose Ferritin AST ALT Lactate Dehydrogenase C-Reactive Protein Albumin Urine WBC (Auto) > 182.0 H Coronavirus (PCR) 07/30/21 07/30/21 07/31/21 06:40 Unknown 12:13 WBC RBC Hgb Hct MCV MCH Plt Count Lymph % (Auto) [place] % (Auto) Lymph # (Auto) Seg Neutrophils % APTT D-Dimer 750.30 H Potassium Chloride BUN 54 H Creatinine 10.0 H Glucose Ferritin AST ALT Lactate Dehydrogenase C-Reactive Protein Albumin Urine WBC (Auto) Coronavirus (PCR) Positive A 07/31/21 07/31/21 08/01/21 12:13 12:13 05:54 WBC RBC Hgb Hct MCV MCH Plt Count Lymph % (Auto) [place] % (Auto) Lymph # (Auto) Seg Neutrophils % APTT D-Dimer Potassium 3.4 L D Chloride BUN 24 H Creatinine 5.1 H Glucose Ferritin 2182.0 H AST 44 H ALT Lactate Dehydrogenase 233 H C-Reactive Protein 4.20 H Albumin 3.3 L Urine WBC (Auto) Coronavirus (PCR) 08/04/21 05:34 WBC RBC Hgb Hct MCV MCH Plt Count Lymph % (Auto) [place] % (Auto) Lymph # (Auto) Seg Neutrophils % APTT D-Dimer Potassium Chloride BUN 39 H Creatinine 6.5 H Glucose 145 H Ferritin AST ALT Lactate Dehydrogenase C-Reactive Protein Albumin Urine WBC (Auto) Coronavirus (PCR)
--- NOTE | 2021-08-05 09:04 | Progress Note ---
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 Continue current dexamethasone treatment. Poor candidate for remdesivir secondary to decreased renal function. Respiratory management per primary team. (2) Encephalopathy Current Visit: Yes Status: Chronic Plan to address problem: Overall no significant changes per nursing staff. We will continue to monitor closely. Patient remains essentially nonverbal. (3) Anemia Current Visit: Yes Status: Chronic Qualifiers: Anemia type: due to chronic kidney disease Chronic kidney disease stage: on chronic dialysis Qualified Code(s): N18.6 - End stage renal disease; D63.1 - Anemia in chronic kidney disease; Z99.2 - Dependence on renal dialysis Plan to address problem: BETY therapy with hemodialysis treatments. (4) End stage renal disease Current Visit: Yes Status: Chronic Plan to address problem: Continue on current Friday//Friday hemodialysis schedule. (5) UTI (urinary tract infection) Current Visit: Yes Status: Acute Qualifiers: Urinary tract infection type: acute cystitis Plan to address problem: Patient has completed 5-day course of Rocephin at this time. Subjective Date of service: 08/05/21 Principal diagnosis: End-stage renal disease Interval history: Discussed with primary nursing staff. No acute changes overnight. No changes in her overall mentation. Continues on Venturi mask. Respiratory status seems to be stable from yesterday. Patient was last dialyzed on Friday. Next hemodialysis treatment for tomorrow. Objective - Exam Narrative Exam: Patient was not directly examined in order to preserve personal protective equipment as well as decrease the risk of transmission of COVID-19 pneumonia. Physical examination from primary team as well as nursing staff reviewed in detail. - Vital Signs Vital signs: Vital Signs - 12hr 08/04/21 08/05/21 08/05/21 22:00 00:22 00:32 Temperature 97.4 F L Pulse Rate 62 Respiratory 18 18 Rate Blood Pressure 117/63 O2 Sat by Pulse 95 93 98 Oximetry 08/05/21 06:26 Temperature 98.2 F Pulse Rate 71 Respiratory 16 Rate Blood Pressure 101/70 O2 Sat by Pulse 92 Oximetry - Lab 07/30/21 06:40 08/04/21 05:34 Most recent lab results Calcium 8.7 mg/dL (8.4-10.2) 08/04/21 05:34 Medications & Allergies - Medications Allergies/Adverse Reactions: Allergies No Known Allergies Allergy (Verified 07/28/21 11:44) Home Medications: Home Medications Medication Instructions Recorded Confirmed Last Taken Type Dexamethasone 6 mg PO DAILY 07/29/21 07/29/21 Unknown History Molnupiravir 400 mg PO BID 07/29/21 07/29/21 Unknown History Vitamin C 500 mg PO DAILY 07/29/21 07/29/21 Unknown History Vitamin D3 1,000 unit PO DAILY 07/29/21 07/29/21 Unknown History Active Medications: Generic Name Dose Route Start Last Admin Trade Name Freq PRN Reason Stop Dose Admin Acetaminophen 650 mg 07/28/21 22:55 07/29/21 06:30 Acetaminophen 325 Mg Tab PO 650 mg Q4H PRN Administration Pain MILD(1-3)/Fever >100.5/VALLE Lipase/Protease/Amylase 1 each 08/02/21 13:53 Lipase 10,500/Protease 25,000/Amylase 43,750 (Units) Dr Michel FEEDTUBE PRN PRN For Clogged Feeding Tube Dexamethasone 6 mg 07/29/21 10:00 08/04/21 09:15 Dexamethasone 2 Mg Tab PO 08/07/21 10:01 6 mg DAILY KALEB Administration Epoetin Nicholas-epbx 10,000 unit 07/29/21 12:28 08/02/21 18:45 Epoetin Nicholas-Epbx 10,000 Unit/1 Ml Vial IV 10,000 unit ANIL PRN Administration hemodialysis Heparin Sodium (Porcine) 5,000 unit 07/28/21 23:15 08/04/21 21:24 Heparin 5,000 Unit/1 Ml Vial SUB-Q 5,000 unit Q12HR KALEB Administration Sodium Chloride 100 mls @ 999 mls/hr 07/29/21 12:28 Nacl 0.9% IV ANIL PRN Hypotension Morphine Sulfate 2 mg 07/28/21 22:55 Morphine 2 Mg/1 Ml Inj IV Q4H PRN Pain, Moderate (4-6) Ondansetron HCl 4 mg 07/28/21 22:55 Ondansetron 4 Mg/2 Ml Inj IV Q8H PRN Nausea And Vomiting Simple Syrup 15 ml 08/02/21 13:53 Simple Syrup 15 Ml FEEDTUBE PRN PRN Hypoglycemia Simple Syrup 30 ml 08/02/21 13:53 Simple Syrup 15 Ml FEEDTUBE PRN PRN Hypoglycemia Sodium Bicarbonate 325 mg 08/02/21 13:53 Sodium Bicarbonate 325 Mg Tab FEEDTUBE PRN PRN For Clogged Feeding Tube Sodium Chloride 10 ml 07/28/21 23:00 08/04/21 21:25 Sodium Chloride 0.9% 10 Ml Flush Syringe IV 10 ml BID KALEB Administration Sodium Chloride 10 ml 07/28/21 22:55 Sodium Chloride 0.9% 10 Ml Flush Syringe IV PRN PRN LINE FLUSH
--- NOTE | 2021-08-05 10:09 | Gastroenterology Progress Note ---
Assessment and Plan 1. Oropharyngeal dysphagia - tolerating tube feeds, remains on venturi mask (sats good and appears comfortable at time of exam). will follow and plan for eventual egd/peg once weaned off venturi mask/decreased oxygen requirements. Subjective Date of service: 08/05/21 Principal diagnosis: respiratory failure, covid, oropharyngeal dysphagia Interval history: pt remains on venturi mask, unable to provide history, tolerating tube feeds Objective - Exam Narrative Exam: gen: nad, on venturi mask CV: rrr lungs: coarse bs abd: soft, nt - Constitutional Vitals: Temp Pulse Resp BP Pulse Ox 98.2 F 71 16 101/70 92 08/05/21 06:26 08/05/21 06:26 08/05/21 06:26 08/05/21 06:26 08/05/21 06:26 - Labs CBC & Chem 7: 07/30/21 06:40 08/04/21 05:34 Labs: Laboratory Results - last 24 hr 08/05/21 08/05/21 08/05/21 06:21 06:21 06:21 D-Dimer 549.41 H Ferritin 1695.0 H Lactate Dehydrogenase 281 H
--- NOTE | 2021-08-05 10:25 | Progress Note ---
Assessment and Plan - Patient Problems (1) Acute respiratory failure with hypoxia Current Visit: Yes Status: Acute (2) COVID-19 in immunocompromised patient Current Visit: Yes Status: Chronic (3) Dementia Current Visit: Yes Status: Acute (4) Encephalopathy Current Visit: Yes Status: Chronic (5) Neurogenic dysphagia Current Visit: Yes Status: Acute (6) SIRS (systemic inflammatory response syndrome) Current Visit: Yes Status: Acute (7) Anemia Current Visit: Yes Status: Chronic Qualifiers: Anemia type: due to chronic kidney disease Chronic kidney disease stage: on chronic dialysis Qualified Code(s): N18.6 - End stage renal disease; D63.1 - Anemia in chronic kidney disease; Z99.2 - Dependence on renal dialysis (8) End stage renal disease Current Visit: Yes Status: Chronic Subjective Principal diagnosis: respiratory failure, covid, oropharyngeal dysphagia Interval history: opens eyes to tactile stimuli. On face mask sat 99% Objective Vital Signs - 12hr 08/05/21 08/05/21 08/05/21 00:22 00:32 06:26 Temperature 97.4 F L 98.2 F Pulse Rate 62 71 Respiratory 18 16 Rate Blood Pressure 117/63 101/70 O2 Sat by Pulse 93 98 92 Oximetry Constitutional: no acute distress, alert, other (on vent mask) Eyes: non-icteric ENT: oropharynx moist Neck: supple Effort: normal Ascultation: Bilateral: rhonchi Cardiovascular: regular rate and rhythm Gastrointestinal: normoactive bowel sounds, soft, non-tender, non-distended Extremities: no cyanosis Neurologic: other (non verbal. opens eyes to tactile stimuli.) CBC and BMP: 07/30/21 06:40 08/04/21 05:34 ABG, PT/INR, D-dimer: PT/INR, D-dimer D-Dimer 549.41 ng/mlDDU (0-234) H 08/05/21 06:21 Abnormal lab findings: Abnormal Labs 07/28/21 07/28/21 07/28/21 12:20 12:20 12:20 WBC 3.4 L RBC 2.80 L Hgb 9.1 L Hct 28.4 L MCV 102 H MCH 33 H Plt Count 132 L Lymph % (Auto) [place] % (Auto) 10.4 H Lymph # (Auto) 0.6 L Seg Neutrophils % 72.1 H APTT 36.7 H D-Dimer Potassium Chloride 95.7 L BUN 37 H Creatinine 8.3 H Glucose Ferritin AST ALT < 5 L Lactate Dehydrogenase C-Reactive Protein Albumin Urine WBC (Auto) Coronavirus (PCR) 07/28/21 07/29/21 07/30/21 Unknown 06:37 06:40 WBC RBC 2.55 L 2.75 L Hgb 8.5 L 9.1 L Hct 25.8 L 27.5 L MCV 101 H 100 H MCH 33 H 33 H Plt Count 123 L Lymph % (Auto) 9.9 L [place] % (Auto) Lymph # (Auto) 0.6 L Seg Neutrophils % 83.4 H APTT D-Dimer Potassium Chloride BUN Creatinine Glucose Ferritin AST ALT Lactate Dehydrogenase C-Reactive Protein Albumin Urine WBC (Auto) > 182.0 H Coronavirus (PCR) 07/30/21 07/30/21 07/31/21 06:40 Unknown 12:13 WBC RBC Hgb Hct MCV MCH Plt Count Lymph % (Auto) [place] % (Auto) Lymph # (Auto) Seg Neutrophils % APTT D-Dimer 750.30 H Potassium Chloride BUN 54 H Creatinine 10.0 H Glucose Ferritin AST ALT Lactate Dehydrogenase C-Reactive Protein Albumin Urine WBC (Auto) Coronavirus (PCR) Positive A 07/31/21 07/31/21 08/01/21 12:13 12:13 05:54 WBC RBC Hgb Hct MCV MCH Plt Count Lymph % (Auto) [place] % (Auto) Lymph # (Auto) Seg Neutrophils % APTT D-Dimer Potassium 3.4 L D Chloride BUN 24 H Creatinine 5.1 H Glucose Ferritin 2182.0 H AST 44 H ALT Lactate Dehydrogenase 233 H C-Reactive Protein 4.20 H Albumin 3.3 L Urine WBC (Auto) Coronavirus (PCR) 08/04/21 08/05/21 08/05/21 05:34 06:21 06:21 WBC RBC Hgb Hct MCV MCH Plt Count Lymph % (Auto) [place] % (Auto) Lymph # (Auto) Seg Neutrophils % APTT D-Dimer 549.41 H Potassium Chloride BUN 39 H Creatinine 6.5 H Glucose 145 H Ferritin 1695.0 H AST ALT Lactate Dehydrogenase C-Reactive Protein Albumin Urine WBC (Auto) Coronavirus (PCR) 08/05/21 06:21 WBC RBC Hgb Hct MCV MCH Plt Count Lymph % (Auto) [place] % (Auto) Lymph # (Auto) Seg Neutrophils % APTT D-Dimer Potassium Chloride BUN Creatinine Glucose Ferritin AST ALT Lactate Dehydrogenase 281 H C-Reactive Protein Albumin Urine WBC (Auto) Coronavirus (PCR)
--- NOTE | 2021-08-05 11:16 | Progress Note ---
Assessment and Plan Assessment and plan: #Acute hypoxic respiratory failure-worsening -likely secondary to COVID -currently on Venturi mask at 8 L/min; will wean as tolerated -continue dexamethasone and supplemental O2 -will wean O2 as tolerated, goal SpO2 >88% -prone patient as able -V/Q Scan and b/l LE dopplers low probability for PE and no DVT respectively -Pulmonology consulted, assistance appreciated #Systemic inflammatory response syndrome-resolved #Urinary tract infection #Gram positive bacteremia #COVID-19 infection -WBC count wnl, tachycardia, tachypnea resolved -Urine WBCs >180, 4+ bacteria, lg LE; treated -COVID PCR positive: inflammatory markers elevated -BCx 07/28: 02/27 coagulase-negative staph; likely contaminant -BCx 07/30: final result negative -vancomycin discontinued, s/p rocephinx 5 days (completed 08/02) -Infectious Disease consulted, assistance appreciated -inflammatory markers improving #Acute hypotension -BP borderline in the evening but WNL during the daytime -will continue to monitor #End stage renal disease requiring HD -HD on TTS schedule -HD per Nephrology -Nephrology following, assistance appreciated #Anemia-stable -likely secondary to ESRD -epogen with dialysis -will transfuse for Hgb less than 7 #History of dementia #History of Parkinson's disease #Neurogenic dysphagia -continue with tube feeds -Discussed with daughter, GI consulted for evaluation for PEG tube; plan for PEG tube when patient weaned off Venturi mask -Follow-up with neurology outpatient #Advanced care planning -Disease education, care plan, diagnosis, prognosis discussed with next of kin, daughter Selena Mena. Family understands and acknowledges current plan. -Time: +30 minutes History Interval history: Venturi mask @ 8 L/min. Easily arousable. Patient not speaking. Tube feeds running. Hospitalist Physical - Physical exam Narrative exam: GENERAL: Thin elderly woman. In no acute distress. HEENT: Venturi mask 8 L/min CHEST/LUNGS: Coarse breath sound bilaterally on supplemental O2 HEART/CARDIOVASCULAR: RRR. No murmur, rubs or gallops appreciated. ABDOMEN: +BS. NT/ND. NEURO: Unable to assess. EXTREMITIES: LUE AVF w/ thrill. No cyanosis, clubbing or edema. BUE rigidity. PSYCH: Alert to person - Constitutional Vitals: Temp Pulse Resp BP Pulse Ox 98.2 F 71 16 101/70 92 08/05/21 06:26 08/05/21 06:26 08/05/21 06:26 08/05/21 06:26 08/05/21 06:26 General appearance: Present: no acute distress, well-nourished Results - Labs CBC & Chem 7: 07/30/21 06:40 08/04/21 05:34 Labs: Laboratory Last Values WBC 9.0 K/mm3 (4.5-11.0) 07/30/21 06:40 RBC 2.75 M/mm3 (3.65-5.03) L 07/30/21 06:40 Hgb 9.1 gm/dl (10.1-14.3) L 07/30/21 06:40 Hct 27.5 % (30.3-42.9) L 07/30/21 06:40 MCV 100 fl (79-97) H 07/30/21 06:40 MCH 33 pg (28-32) H 07/30/21 06:40 MCHC 33 % (30-34) 07/30/21 06:40 RDW 13.9 % (13.2-15.2) 07/30/21 06:40 Plt Count 170 K/mm3 (140-440) 07/30/21 06:40 Lymph % (Auto) 9.9 % (13.4-35.0) L 07/29/21 06:37 [place] % (Auto) 6.3 % (0.0-7.3) 07/29/21 06:37 Eos % (Auto) 0.0 % (0.0-4.3) 07/29/21 06:37 Baso % (Auto) 0.4 % (0.0-1.8) 07/29/21 06:37 Lymph # (Auto) 0.6 K/mm3 (1.2-5.4) L 07/29/21 06:37 [place] # (Auto) 0.4 K/mm3 (0.0-0.8) 07/29/21 06:37 Eos # (Auto) 0.0 K/mm3 (0.0-0.4) 07/29/21 06:37 Baso # (Auto) 0.0 K/mm3 (0.0-0.1) 07/29/21 06:37 Seg Neutrophils % 83.4 % (40.0-70.0) H 07/29/21 06:37 Seg Neutrophils # 5.3 K/mm3 (1.8-7.7) 07/29/21 06:37 APTT 36.7 Sec. (24.2-36.6) H 07/28/21 12:20 D-Dimer 549.41 ng/mlDDU (0-234) H 08/05/21 06:21 Sodium 140 mmol/L (137-145) 08/04/21 05:34 Potassium 3.8 mmol/L (3.6-5.0) 08/04/21 05:34 Chloride 99.7 mmol/L (98-107) 08/04/21 05:34 Carbon Dioxide 24 mmol/L (22-30) 08/04/21 05:34 Anion Gap 20 mmol/L 08/04/21 05:34 BUN 39 mg/dL (7-17) H 08/04/21 05:34 Creatinine 6.5 mg/dL (0.6-1.2) H 08/04/21 05:34 Estimated GFR 8 ml/min 08/04/21 05:34 BUN/Creatinine Ratio 6 % 08/04/21 05:34 Glucose 145 mg/dL (65-100) H 08/04/21 05:34 POC Glucose 80 mg/dL (70-105) 07/29/21 06:50 Lactic Acid 1.40 mmol/L (0.7-2.0) 07/28/21 12:20 Calcium 8.7 mg/dL (8.4-10.2) 08/04/21 05:34 Ferritin 1695.0 ng/mL (10.0-200.0) H 08/05/21 06:21 Total Bilirubin 0.20 mg/dL (0.1-1.2) 08/01/21 05:54 AST 44 units/L (5-40) H 08/01/21 05:54 ALT 10 units/L (7-56) 08/01/21 05:54 Alkaline Phosphatase 60 units/L (35-129) 08/01/21 05:54 Lactate Dehydrogenase 281 units/L (91-180) H 08/05/21 06:21 C-Reactive Protein 4.20 mg/dL (0.00-1.30) H 07/31/21 12:13 Total Protein 6.7 g/dL (6.3-8.2) 08/01/21 05:54 Albumin 3.3 g/dL (3.9-5) L 08/01/21 05:54 Albumin/Globulin Ratio 1.0 % 08/01/21 05:54 Urine Color Yellow (Yellow) 07/28/21 Unknown Urine Turbidity Turbid (Clear) 07/28/21 Unknown Urine pH 6.0 (5.0-7.0) 07/28/21 Unknown Ur Specific Elsie 1.014 (1.003-1.030) 07/28/21 Unknown Urine Protein 100 mg/dl mg/dL (Negative) 07/28/21 Unknown Urine Glucose (UA) Neg mg/dL (Negative) 07/28/21 Unknown Urine Ketones Tr mg/dL (Negative) 07/28/21 Unknown Urine Blood Sm (Negative) 07/28/21 Unknown Urine Nitrite Neg (Negative) 07/28/21 Unknown Urine Bilirubin Neg (Negative) 07/28/21 Unknown Urine Urobilinogen < 2.0 mg/dL (<2.0) 07/28/21 Unknown Ur Leukocyte Esterase Lg (Negative) 07/28/21 Unknown Urine WBC (Auto) > 182.0 /HPF (0.0-6.0) H 07/28/21 Unknown Urine RBC (Auto) 10.0 /HPF (0.0-6.0) 07/28/21 Unknown Urine Bacteria (Auto) 4+ /HPF (Negative) 07/28/21 Unknown Urine WBC Clumps 3+ /HPF 07/28/21 Unknown Random Vancomycin 19.4 ug/mL (0-40.0) 07/31/21 05:27 Coronavirus (PCR) Positive (Negative) A 07/30/21 Unknown Hepatitis A IgM Ab Non-reactive (NonReactive) 07/30/21 09:03 Hep Bs Antigen Non-reactive (Negative) 07/30/21 09:03 Hep B Core IgM Ab Non-reactive (NonReactive) 07/30/21 09:03 Hepatitis C Antibody Non-reactive (NonReactive) 07/30/21 09:03 Microbiology: Microbiology 07/30/21 07:31 Peripheral/Venous Blood Culture - Final NO GROWTH AFTER 5 DAYS 07/30/21 08:00 Peripheral/Venous Blood Culture - Final NO GROWTH AFTER 5 DAYS Muniz/IV: Voiding Method Incontinent Active Medications - Current Medications Current Medications: Generic Name Dose Route Start Last Admin Trade Name Richardq PRN Reason Stop Dose Admin Acetaminophen 650 mg 07/28/21 22:55 07/29/21 06:30 Acetaminophen 325 Mg Tab PO 650 mg Q4H PRN Administration Pain MILD(1-3)/Fever >100.5/VALLE Lipase/Protease/Amylase 1 each 08/02/21 13:53 Lipase 10,500/Protease 25,000/Amylase 43,750 (Units) Dr Cap FEEDTUBE PRN PRN For Clogged Feeding Tube Dexamethasone 6 mg 07/29/21 10:00 08/04/21 09:15 Dexamethasone 2 Mg Tab PO 08/07/21 10:01 6 mg DAILY KALEB Administration Epoetin Nicholas-epbx 10,000 unit 07/29/21 12:28 08/02/21 18:45 Epoetin Nicholas-Epbx 10,000 Unit/1 Ml Vial IV 10,000 unit ANIL PRN Administration hemodialysis Heparin Sodium (Porcine) 5,000 unit 07/28/21 23:15 08/04/21 21:24 Heparin 5,000 Unit/1 Ml Vial SUB-Q 5,000 unit Q12HR KALEB Administration Sodium Chloride 100 mls @ 999 mls/hr 07/29/21 12:28 Nacl 0.9% IV ANIL PRN Hypotension Morphine Sulfate 2 mg 07/28/21 22:55 Morphine 2 Mg/1 Ml Inj IV Q4H PRN Pain, Moderate (4-6) Ondansetron HCl 4 mg 07/28/21 22:55 Ondansetron 4 Mg/2 Ml Inj IV Q8H PRN Nausea And Vomiting Simple Syrup 15 ml 08/02/21 13:53 Simple Syrup 15 Ml FEEDTUBE PRN PRN Hypoglycemia Simple Syrup 30 ml 08/02/21 13:53 Simple Syrup 15 Ml FEEDTUBE PRN PRN Hypoglycemia Sodium Bicarbonate 325 mg 08/02/21 13:53 Sodium Bicarbonate 325 Mg Tab FEEDTUBE PRN PRN For Clogged Feeding Tube Sodium Chloride 10 ml 07/28/21 23:00 08/04/21 21:25 Sodium Chloride 0.9% 10 Ml Flush Syringe IV 10 ml BID KALEB Administration Sodium Chloride 10 ml 07/28/21 22:55 Sodium Chloride 0.9% 10 Ml Flush Syringe IV PRN PRN LINE FLUSH Nutrition/Malnutrition Assess - Dietary Evaluation Nutrition/Malnutrition Findings: Nutrition Notes Start: 07/29/21 15:43 Freq: Status: Active Protocol: Document 08/03/21 11:30 MAGDALENO (Rec: 08/03/21 11:38 MAGDALENO [id number]) Nutrition Notes Initial or Follow up Brief Note Current Diagnosis CKD (stage V CKD),Hypertension ,Respiratory Failure Other Pertinent Diagnosis ESRD+HD, UTI, Anemia, COVID-19 , SIRS, Hypotension, Encephalopathy, Demen... Current Diet TF-Nepro w/CARBSTEADY @ 35 ml/ hr (from D 08/02). Height 5 ft 4 in Weight 58 kg [place] Body Weight (kg) 54.54 BMI 21.9 Weight change and time frame No body weight change reported in 5 days. Weight Status Appropriate Subjective/Other Information RD consult for routine F/u on TF tolerance.continuation assessment. TF continues as prescribed, and well tolerated, according to RN notes. Pt is on Venturi Mask+, O2 saturation @ 96%, according to Physical Assessment History notes. Percent of energy/protein needs met: Prescribed TF-Nepro w/ CARBSTEADY @ 35 ml/hr provides for energy/protein needs (1, 508 Kcal/68 g) during LOS; 100 % Kcal; 97% AA. #1 Nutrition Diagnosis Inadequate protein-energy intake Comments: Prescribed TF-Nepro w/ CARBSTEADY @ 35 ml/hr provides for energy/protein needs (1, 508 Kcal/68 g) during LOS; 100 % Kcal; 97% AA. Diagnosis Progress(for reassessment Resolved documentation) Is patient on ventilator? No Is Patient Ambulatory and/or Out of Bed No REE-([facility]-confined to bed) 1308.024 Kcal/Kg value to use for calculation 26 Approximate Energy Requirements Using 1508 kcal/Kg Calculation Used for Recommendations Kcal/kg Additional Notes Protein: >1.2 g/Kg ABW; >70 g/ day. Fluids: 1 ml/Kcal, or as per MD. Nutrition Intervention Nutrition Support: Continue TF-Nepro w/CARBSTEADY @ 35 ml/hr. Flush: 150 ml water Q 4 hr, or as per MD. Kcal 1,508 Protein (gm) 68 Carbohydrates (gm) 135 Fat (gm) 80 Fluid (mL) 609 Fiber (gm) 11 % RDI: 100% Kcal; 97% AA. Goal #1 Provide at least 75% of energy /protein needs through Enteral Feeding during LOS. Goal #2 Maintain body weight within +/ -3% of admission body weight during LOS. Follow-Up By: 08/10/21 Additional Comments Continue monitoring TF tolerance and BM.
[2021-08-05] MEDS: HEPARIN 5,000 UNIT/1 ML VIAL SUB-Q SCH ×2 (11:20→21:30)
[2021-08-05] MEDS: DEXAMETHASONE 2 MG TAB PO SCH (11:20)
[2021-08-06 06:41] LABS: Calcium 9.1 mg/dL (8.4-10.2)
--- NOTE | 2021-08-06 07:51 | Progress Note ---
Assessment and Plan Assessment and plan: #Acute hypoxic respiratory failure-worsening -likely secondary to COVID -currently on Venturi mask at 7 L/min; will wean as tolerated -continue dexamethasone and supplemental O2 (last day of steroids 08/07/21) -will wean O2 as tolerated, goal SpO2 >88% -prone patient as able -V/Q Scan and b/l LE dopplers low probability for PE and no DVT respectively -Pulmonology consulted, assistance appreciated #Systemic inflammatory response syndrome-resolved #Urinary tract infection #Gram positive bacteremia #COVID-19 infection -WBC count wnl, tachycardia, tachypnea resolved -Urine WBCs >180, 4+ bacteria, lg LE; treated -COVID PCR positive -BCx 07/28: 02/27 coagulase-negative staph; likely contaminant -BCx 07/30: final result negative -vancomycin discontinued, s/p rocephinx 5 days (completed 08/02) -Infectious Disease consulted, assistance appreciated -inflammatory markers improving #Acute hypotension-resolved -will continue to monitor #End stage renal disease requiring HD -HD on TTS schedule -HD per Nephrology -Nephrology following, assistance appreciated #Hyperkalemia -Potassium 5.2 -Will receive 1 dose of Kayexalate today -We will continue to monitor, likely will be addressed with K bath during HD #Anemia-stable -likely secondary to ESRD -epogen with dialysis -will transfuse for Hgb less than 7 #History of dementia #History of Parkinson's disease #Neurogenic dysphagia -continue with tube feeds -Discussed with daughter, GI consulted for evaluation for PEG tube; plan for PEG tube/EGD on Friday -Follow-up with neurology outpatient #Advanced care planning -Disease education, care plan, diagnosis, prognosis discussed with next of kin, daughter Selena Mena. Family understands and acknowledges current plan. -Time: +30 minutes History Interval history: Venturi mask @ 8 L/min, reduced to 7. Easily arousable. Tube feeds running. Hospitalist Physical - Physical exam Narrative exam: GENERAL: Thin elderly woman. In no acute distress. HEENT: Venturi mask 7 L/min CHEST/LUNGS: Coarse breath sound bilaterally on supplemental O2 HEART/CARDIOVASCULAR: RRR. No murmur, rubs or gallops appreciated. ABDOMEN: +BS. NT/ND. NEURO: Unable to assess. EXTREMITIES: LUE AVF w/ thrill. No cyanosis, clubbing or edema. BUE rigidity. PSYCH: Alert to person - Constitutional Vitals: Temp Pulse Resp BP Pulse Ox 98.7 F 82 18 139/86 95 08/06/21 05:00 08/06/21 05:00 08/06/21 05:00 08/06/21 05:00 08/06/21 07:08 General appearance: Present: no acute distress, well-nourished Results - Labs CBC & Chem 7: 07/30/21 06:40 08/06/21 05:52 Labs: Laboratory Last Values WBC 9.0 K/mm3 (4.5-11.0) 07/30/21 06:40 RBC 2.75 M/mm3 (3.65-5.03) L 07/30/21 06:40 Hgb 9.1 gm/dl (10.1-14.3) L 07/30/21 06:40 Hct 27.5 % (30.3-42.9) L 07/30/21 06:40 MCV 100 fl (79-97) H 07/30/21 06:40 MCH 33 pg (28-32) H 07/30/21 06:40 MCHC 33 % (30-34) 07/30/21 06:40 RDW 13.9 % (13.2-15.2) 07/30/21 06:40 Plt Count 170 K/mm3 (140-440) 07/30/21 06:40 Lymph % (Auto) 9.9 % (13.4-35.0) L 07/29/21 06:37 [place] % (Auto) 6.3 % (0.0-7.3) 07/29/21 06:37 Eos % (Auto) 0.0 % (0.0-4.3) 07/29/21 06:37 Baso % (Auto) 0.4 % (0.0-1.8) 07/29/21 06:37 Lymph # (Auto) 0.6 K/mm3 (1.2-5.4) L 07/29/21 06:37 [place] # (Auto) 0.4 K/mm3 (0.0-0.8) 07/29/21 06:37 Eos # (Auto) 0.0 K/mm3 (0.0-0.4) 07/29/21 06:37 Baso # (Auto) 0.0 K/mm3 (0.0-0.1) 07/29/21 06:37 Seg Neutrophils % 83.4 % (40.0-70.0) H 07/29/21 06:37 Seg Neutrophils # 5.3 K/mm3 (1.8-7.7) 07/29/21 06:37 APTT 36.7 Sec. (24.2-36.6) H 07/28/21 12:20 D-Dimer 549.41 ng/mlDDU (0-234) H 08/05/21 06:21 Sodium 141 mmol/L (137-145) 08/06/21 05:52 Potassium 5.2 mmol/L (3.6-5.0) H D 08/06/21 05:52 Chloride 99.1 mmol/L (98-107) 08/06/21 05:52 Carbon Dioxide 30 mmol/L (22-30) 08/06/21 05:52 Anion Gap 17 mmol/L 08/06/21 05:52 BUN 50 mg/dL (7-17) H 08/06/21 05:52 Creatinine 6.0 mg/dL (0.6-1.2) H 08/06/21 05:52 Estimated GFR 8 ml/min 08/06/21 05:52 BUN/Creatinine Ratio 8 % 08/06/21 05:52 Glucose 120 mg/dL (65-100) H 08/06/21 05:52 POC Glucose 80 mg/dL (70-105) 07/29/21 06:50 Lactic Acid 1.40 mmol/L (0.7-2.0) 07/28/21 12:20 Calcium 9.1 mg/dL (8.4-10.2) 08/06/21 05:52 Ferritin 1695.0 ng/mL (10.0-200.0) H 08/05/21 06:21 Total Bilirubin 0.20 mg/dL (0.1-1.2) 08/01/21 05:54 AST 44 units/L (5-40) H 08/01/21 05:54 ALT 10 units/L (7-56) 08/01/21 05:54 Alkaline Phosphatase 60 units/L (35-129) 08/01/21 05:54 Lactate Dehydrogenase 281 units/L (91-180) H 08/05/21 06:21 C-Reactive Protein 4.20 mg/dL (0.00-1.30) H 07/31/21 12:13 Total Protein 6.7 g/dL (6.3-8.2) 08/01/21 05:54 Albumin 3.3 g/dL (3.9-5) L 08/01/21 05:54 Albumin/Globulin Ratio 1.0 % 08/01/21 05:54 Urine Color Yellow (Yellow) 07/28/21 Unknown Urine Turbidity Turbid (Clear) 07/28/21 Unknown Urine pH 6.0 (5.0-7.0) 07/28/21 Unknown Ur Specific [place] 1.014 (1.003-1.030) 07/28/21 Unknown Urine Protein 100 mg/dl mg/dL (Negative) 07/28/21 Unknown Urine Glucose (UA) Neg mg/dL (Negative) 07/28/21 Unknown Urine Ketones Tr mg/dL (Negative) 07/28/21 Unknown Urine Blood Sm (Negative) 07/28/21 Unknown Urine Nitrite Neg (Negative) 07/28/21 Unknown Urine Bilirubin Neg (Negative) 07/28/21 Unknown Urine Urobilinogen < 2.0 mg/dL (<2.0) 07/28/21 Unknown Ur Leukocyte Esterase Lg (Negative) 07/28/21 Unknown Urine WBC (Auto) > 182.0 /HPF (0.0-6.0) H 07/28/21 Unknown Urine RBC (Auto) 10.0 /HPF (0.0-6.0) 07/28/21 Unknown Urine Bacteria (Auto) 4+ /HPF (Negative) 07/28/21 Unknown Urine WBC Clumps 3+ /HPF 07/28/21 Unknown Random Vancomycin 19.4 ug/mL (0-40.0) 07/31/21 05:27 Coronavirus (PCR) Positive (Negative) A 07/30/21 Unknown Hepatitis A IgM Ab Non-reactive (NonReactive) 07/30/21 09:03 Hep Bs Antigen Non-reactive (Negative) 07/30/21 09:03 Hep B Core IgM Ab Non-reactive (NonReactive) 07/30/21 09:03 Hepatitis C Antibody Non-reactive (NonReactive) 07/30/21 09:03 Muniz/IV: Voiding Method Incontinent Active Medications - Current Medications Current Medications: Generic Name Dose Route Start Last Admin Trade Name Freq PRN Reason Stop Dose Admin Acetaminophen 650 mg 07/28/21 22:55 07/29/21 06:30 Acetaminophen 325 Mg Tab PO 650 mg Q4H PRN Administration Pain MILD(1-3)/Fever >100.5/VALLE Lipase/Protease/Amylase 1 each 08/02/21 13:53 Lipase 10,500/Protease 25,000/Amylase 43,750 (Units) Dr Michel FEEDTUBE PRN PRN For Clogged Feeding Tube Dexamethasone 6 mg 07/29/21 10:00 08/05/21 11:20 Dexamethasone 2 Mg Tab PO 08/07/21 10:01 6 mg DAILY KALEB Administration Epoetin Nicholas-epbx 10,000 unit 07/29/21 12:28 08/02/21 18:45 Epoetin Nicholas-Epbx 10,000 Unit/1 Ml Vial IV 10,000 unit ANIL PRN Administration hemodialysis Heparin Sodium (Porcine) 5,000 unit 07/28/21 23:15 08/05/21 21:30 Heparin 5,000 Unit/1 Ml Vial SUB-Q 5,000 unit Q12HR KALEB Administration Sodium Chloride 100 mls @ 999 mls/hr 07/29/21 12:28 Nacl 0.9% IV ANIL PRN Hypotension Morphine Sulfate 2 mg 07/28/21 22:55 Morphine 2 Mg/1 Ml Inj IV Q4H PRN Pain, Moderate (4-6) Ondansetron HCl 4 mg 07/28/21 22:55 Ondansetron 4 Mg/2 Ml Inj IV Q8H PRN Nausea And Vomiting Simple Syrup 15 ml 08/02/21 13:53 Simple Syrup 15 Ml FEEDTUBE PRN PRN Hypoglycemia Simple Syrup 30 ml 08/02/21 13:53 Simple Syrup 15 Ml FEEDTUBE PRN PRN Hypoglycemia Sodium Bicarbonate 325 mg 08/02/21 13:53 Sodium Bicarbonate 325 Mg Tab FEEDTUBE PRN PRN For Clogged Feeding Tube Sodium Chloride 10 ml 07/28/21 23:00 08/05/21 21:30 Sodium Chloride 0.9% 10 Ml Flush Syringe IV 10 ml BID KALEB Administration Sodium Chloride 10 ml 07/28/21 22:55 Sodium Chloride 0.9% 10 Ml Flush Syringe IV PRN PRN LINE FLUSH Nutrition/Malnutrition Assess - Dietary Evaluation Nutrition/Malnutrition Findings: Nutrition Notes Start: 07/29/21 15:43 Freq: Status: Active Protocol: Document 08/03/21 11:30 MAGDALENO (Rec: 08/03/21 11:38 MAGDALENO [email or web address]) Nutrition Notes Initial or Follow up Brief Note Current Diagnosis CKD (stage V CKD),Hypertension ,Respiratory Failure Other Pertinent Diagnosis ESRD+HD, UTI, Anemia, COVID-19 , SIRS, Hypotension, Encephalopathy, Demen... Current Diet TF-Nepro w/CARBSTEADY @ 35 ml/ hr (from D 08/02). Height 5 ft 4 in Weight 58 kg [place] Body Weight (kg) 54.54 BMI 21.9 Weight change and time frame No body weight change reported in 5 days. Weight Status Appropriate Subjective/Other Information RD consult for routine F/u on TF tolerance.continuation assessment. TF continues as prescribed, and well tolerated, according to RN notes. Pt is on Venturi Mask+, O2 saturation @ 96%, according to Physical Assessment History notes. Percent of energy/protein needs met: Prescribed TF-Nepro w/ CARBSTEADY @ 35 ml/hr provides for energy/protein needs (1, 508 Kcal/68 g) during LOS; 100 % Kcal; 97% AA. #1 Nutrition Diagnosis Inadequate protein-energy intake Comments: Prescribed TF-Nepro w/ CARBSTEADY @ 35 ml/hr provides for energy/protein needs (1, 508 Kcal/68 g) during LOS; 100 % Kcal; 97% AA. Diagnosis Progress(for reassessment Resolved documentation) Is patient on ventilator? No Is Patient Ambulatory and/or Out of Bed No REE-([facility]-confined to bed) 1308.024 Kcal/Kg value to use for calculation 26 Approximate Energy Requirements Using 1508 kcal/Kg Calculation Used for Recommendations Kcal/kg Additional Notes Protein: >1.2 g/Kg ABW; >70 g/ day. Fluids: 1 ml/Kcal, or as per MD. Nutrition Intervention Nutrition Support: Continue TF-Nepro w/CARBSTEADY @ 35 ml/hr. Flush: 150 ml water Q 4 hr, or as per MD. Kcal 1,508 Protein (gm) 68 Carbohydrates (gm) 135 Fat (gm) 80 Fluid (mL) 609 Fiber (gm) 11 % RDI: 100% Kcal; 97% AA. Goal #1 Provide at least 75% of energy /protein needs through Enteral Feeding during LOS. Goal #2 Maintain body weight within +/ -3% of admission body weight during LOS. Follow-Up By: 08/10/21 Additional Comments Continue monitoring TF tolerance and BM.
[2021-08-06] MEDS ORDERED: SODIUM POLYSTYRENE 15 GM/60 ML ORAL LIQD PO NR (08:30)
[2021-08-06] MEDS: DEXAMETHASONE 2 MG TAB PO SCH (09:05)
[2021-08-06] MEDS: HEPARIN 5,000 UNIT/1 ML VIAL SUB-Q SCH ×2 (09:06→21:02)
--- NOTE | 2021-08-06 10:00 | Gastroenterology Progress Note ---
Assessment and Plan 1. PEG placement - Will plan for EGD/PEG on Friday - Spoke with RT regarding need for nasal cannula during procedure and they agreed pt would be able to tolerate Subjective Date of service: 08/06/21 Principal diagnosis: respiratory failure, covid, oropharyngeal dysphagia Interval history: Pt seen and examined. Laying comfortably in bed. Pt still on venturi mask. Spoke with RT regarding need for sedation to place PEG and they agreed that she would okay using nasal cannula for procedure. Objective - Constitutional Vitals: Temp Pulse Resp BP Pulse Ox 98.7 F 82 18 139/86 96 08/06/21 05:00 08/06/21 05:00 08/06/21 05:00 08/06/21 05:00 08/06/21 09:29 General appearance: no acute distress - Labs CBC & Chem 7: 07/30/21 06:40 08/06/21 05:52 Labs: Laboratory Results - last 24 hr 08/06/21 05:52 Sodium 141 Potassium 5.2 H D Chloride 99.1 Carbon Dioxide 30 Anion Gap 17 BUN 50 H Creatinine 6.0 H Estimated GFR 8 BUN/Creatinine Ratio 8 Glucose 120 H Calcium 9.1
--- NOTE | 2021-08-06 10:23 | Progress Note ---
Assessment and Plan 70 y/o female originally admitted for sirs, now found to be covid positive and in acute respiratory failure after having hypotension and fluid resuscitation. 08/06/21: Continue to wean FiO2 for sats greater than 88%. Steroids end tomorro w. V/Q was low prob. Guarded prognosis. 08/03/21: Same recs as before. My partner is rounding this weekend and see at least once this weekend. 08/02/21: Continue to prone as tolerated. Steroids. Wean FiO2 for sats >88%. Assess for PE. HD per renal. Guarded prognosis. 08/01/21: Will need to discusss with renal but given this acute change in oxygen requirement but no real change on CXR, need to consider CTA to rule out pulmonary embolism as having COVID does make you prone to VTE. Would not treat empirically. If renal ok and can dialyze the next day would obtain CTA to assess for PE 1. Repeat CXR now 2. Agree with steroids 3. Not a candidate for remdesivir but would ask ID if she meets actemra criteria 4. Keep sats >88% 5. If cXR shows worsening volume status, will ask renal if able to pull more fluid now that hypotension has resolved 6. Encourage patient to prone as long as tolerated 7. Guarded prognosis given ESRD on HD Subjective Date of service: 08/06/21 Principal diagnosis: respiratory failure, covid, oropharyngeal dysphagia Interval history: no acute events. Down to 8 liters. Sats are good. Objective Vital Signs - 12hr 08/05/21 08/06/21 08/06/21 22:27 05:00 07:08 Temperature 99.2 F 98.7 F Pulse Rate 88 82 Respiratory 20 18 Rate Blood Pressure 205/79 139/86 [Right] O2 Sat by Pulse 98 98 95 Oximetry 08/06/21 09:29 Temperature Pulse Rate Respiratory Rate Blood Pressure [Right] O2 Sat by Pulse 96 Oximetry Constitutional: no acute distress, alert, other (on vent mask) Eyes: non-icteric ENT: oropharynx moist Neck: supple Effort: normal Ascultation: Bilateral: rhonchi Cardiovascular: regular rate and rhythm Gastrointestinal: normoactive bowel sounds, soft, non-tender, non-distended Extremities: no cyanosis Neurologic: other (non verbal. opens eyes to tactile stimuli.) CBC and BMP: 07/30/21 06:40 08/06/21 05:52 ABG, PT/INR, D-dimer: PT/INR, D-dimer D-Dimer 549.41 ng/mlDDU (0-234) H 08/05/21 06:21 Abnormal lab findings: Abnormal Labs 07/28/21 07/28/21 07/28/21 12:20 12:20 12:20 WBC 3.4 L RBC 2.80 L Hgb 9.1 L Hct 28.4 L MCV 102 H MCH 33 H Plt Count 132 L Lymph % (Auto) [place] % (Auto) 10.4 H Lymph # (Auto) 0.6 L Seg Neutrophils % 72.1 H APTT 36.7 H D-Dimer Potassium Chloride 95.7 L BUN 37 H Creatinine 8.3 H Glucose Ferritin AST ALT < 5 L Lactate Dehydrogenase C-Reactive Protein Albumin Urine WBC (Auto) Coronavirus (PCR) 07/28/21 07/29/21 07/30/21 Unknown 06:37 06:40 WBC RBC 2.55 L 2.75 L Hgb 8.5 L 9.1 L Hct 25.8 L 27.5 L MCV 101 H 100 H MCH 33 H 33 H Plt Count 123 L Lymph % (Auto) 9.9 L [place] % (Auto) Lymph # (Auto) 0.6 L Seg Neutrophils % 83.4 H APTT D-Dimer Potassium Chloride BUN Creatinine Glucose Ferritin AST ALT Lactate Dehydrogenase C-Reactive Protein Albumin Urine WBC (Auto) > 182.0 H Coronavirus (PCR) 07/30/21 07/30/21 07/31/21 06:40 Unknown 12:13 WBC RBC Hgb Hct MCV MCH Plt Count Lymph % (Auto) [place] % (Auto) Lymph # (Auto) Seg Neutrophils % APTT D-Dimer 750.30 H Potassium Chloride BUN 54 H Creatinine 10.0 H Glucose Ferritin AST ALT Lactate Dehydrogenase C-Reactive Protein Albumin Urine WBC (Auto) Coronavirus (PCR) Positive A 07/31/21 07/31/21 08/01/21 12:13 12:13 05:54 WBC RBC Hgb Hct MCV MCH Plt Count Lymph % (Auto) [place] % (Auto) Lymph # (Auto) Seg Neutrophils % APTT D-Dimer Potassium 3.4 L D Chloride BUN 24 H Creatinine 5.1 H Glucose Ferritin 2182.0 H AST 44 H ALT Lactate Dehydrogenase 233 H C-Reactive Protein 4.20 H Albumin 3.3 L Urine WBC (Auto) Coronavirus (PCR) 08/04/21 08/05/21 08/05/21 05:34 06:21 06:21 WBC RBC Hgb Hct MCV MCH Plt Count Lymph % (Auto) [place] % (Auto) Lymph # (Auto) Seg Neutrophils % APTT D-Dimer 549.41 H Potassium Chloride BUN 39 H Creatinine 6.5 H Glucose 145 H Ferritin 1695.0 H AST ALT Lactate Dehydrogenase C-Reactive Protein Albumin Urine WBC (Auto) Coronavirus (PCR) 08/05/21 08/06/21 06:21 05:52 WBC RBC Hgb Hct MCV MCH Plt Count Lymph % (Auto) [place] % (Auto) Lymph # (Auto) Seg Neutrophils % APTT D-Dimer Potassium 5.2 H D Chloride BUN 50 H Creatinine 6.0 H Glucose 120 H Ferritin AST ALT Lactate Dehydrogenase 281 H C-Reactive Protein Albumin Urine WBC (Auto) Coronavirus (PCR)
--- NOTE | 2021-08-07 08:56 | Progress Note ---
Assessment and Plan 70 y/o female originally admitted for sirs, now found to be covid positive and in acute respiratory failure after having hypotension and fluid resuscitation. 08/07/21: Should be able to wean off oxygen. HD per renal. Steroids end today. Keep patient as dry as possible. Peg tomorrow. 08/06/21: Continue to wean FiO2 for sats greater than 88%. Steroids end tomorrow. V/Q was low prob. Guarded prognosis. 08/03/21: Same recs as before. My partner is rounding this weekend and see at least once this weekend. 08/02/21: Continue to prone as tolerated. Steroids. Wean FiO2 for sats >88%. Assess for PE. HD per renal. Guarded prognosis. 08/01/21: Will need to discusss with renal but given this acute change in oxygen requirement but no real change on CXR, need to consider CTA to rule out pulmonary embolism as having COVID does make you prone to VTE. Would not treat empirically. If renal ok and can dialyze the next day would obtain CTA to assess for PE 1. Repeat CXR now 2. Agree with steroids 3. Not a candidate for remdesivir but would ask ID if she meets actemra criteria 4. Keep sats >88% 5. If cXR shows worsening volume status, will ask renal if able to pull more fluid now that hypotension has resolved 6. Encourage patient to prone as long as tolerated 7. Guarded prognosis given ESRD on HD Subjective Date of service: 08/07/21 Principal diagnosis: respiratory failure, covid, oropharyngeal dysphagia Interval history: No acute events. Per GI peg tomorrow. remains on Venturi mask but good sats. Steroids end today. There is a nursing note from about 2pm on yesterday that says the patient had a room air sat of 97%. Objective Vital Signs - 12hr 08/06/21 08/06/21 08/07/21 21:10 22:00 04:48 Temperature 97.3 F L 97.5 F L Pulse Rate 64 Respiratory 16 16 Rate Blood Pressure 125/86 136/84 O2 Sat by Pulse 94 89 Oximetry Constitutional: no acute distress, alert, other (on vent mask) Eyes: non-icteric ENT: oropharynx moist Neck: supple Effort: normal Ascultation: Bilateral: rhonchi Cardiovascular: regular rate and rhythm Gastrointestinal: normoactive bowel sounds, soft, non-tender, non-distended Extremities: no cyanosis Neurologic: other (non verbal. opens eyes to tactile stimuli.) CBC and BMP: 07/30/21 06:40 08/06/21 05:52 ABG, PT/INR, D-dimer: PT/INR, D-dimer D-Dimer 549.41 ng/mlDDU (0-234) H 08/05/21 06:21 Abnormal lab findings: Abnormal Labs 07/28/21 07/28/21 07/28/21 12:20 12:20 12:20 WBC 3.4 L RBC 2.80 L Hgb 9.1 L Hct 28.4 L MCV 102 H MCH 33 H Plt Count 132 L Lymph % (Auto) Day % (Auto) 10.4 H Lymph # (Auto) 0.6 L Seg Neutrophils % 72.1 H APTT 36.7 H D-Dimer Potassium Chloride 95.7 L BUN 37 H Creatinine 8.3 H Glucose Ferritin AST ALT < 5 L Lactate Dehydrogenase C-Reactive Protein Albumin Urine WBC (Auto) Coronavirus (PCR) 07/28/21 07/29/21 07/30/21 Unknown 06:37 06:40 WBC RBC 2.55 L 2.75 L Hgb 8.5 L 9.1 L Hct 25.8 L 27.5 L MCV 101 H 100 H MCH 33 H 33 H Plt Count 123 L Lymph % (Auto) 9.9 L Day % (Auto) Lymph # (Auto) 0.6 L Seg Neutrophils % 83.4 H APTT D-Dimer Potassium Chloride BUN Creatinine Glucose Ferritin AST ALT Lactate Dehydrogenase C-Reactive Protein Albumin Urine WBC (Auto) > 182.0 H Coronavirus (PCR) 07/30/21 07/30/21 07/31/21 06:40 Unknown 12:13 WBC RBC Hgb Hct MCV MCH Plt Count Lymph % (Auto) Day % (Auto) Lymph # (Auto) Seg Neutrophils % APTT D-Dimer 750.30 H Potassium Chloride BUN 54 H Creatinine 10.0 H Glucose Ferritin AST ALT Lactate Dehydrogenase C-Reactive Protein Albumin Urine WBC (Auto) Coronavirus (PCR) Positive A 07/31/21 07/31/21 08/01/21 12:13 12:13 05:54 WBC RBC Hgb Hct MCV MCH Plt Count Lymph % (Auto) Day % (Auto) Lymph # (Auto) Seg Neutrophils % APTT D-Dimer Potassium 3.4 L D Chloride BUN 24 H Creatinine 5.1 H Glucose Ferritin 2182.0 H AST 44 H ALT Lactate Dehydrogenase 233 H C-Reactive Protein 4.20 H Albumin 3.3 L Urine WBC (Auto) Coronavirus (PCR) 08/04/21 08/05/21 08/05/21 05:34 06:21 06:21 WBC RBC Hgb Hct MCV MCH Plt Count Lymph % (Auto) Day % (Auto) Lymph # (Auto) Seg Neutrophils % APTT D-Dimer 549.41 H Potassium Chloride BUN 39 H Creatinine 6.5 H Glucose 145 H Ferritin 1695.0 H AST ALT Lactate Dehydrogenase C-Reactive Protein Albumin Urine WBC (Auto) Coronavirus (PCR) 08/05/21 08/06/21 06:21 05:52 WBC RBC Hgb Hct MCV MCH Plt Count Lymph % (Auto) Day % (Auto) Lymph # (Auto) Seg Neutrophils % APTT D-Dimer Potassium 5.2 H D Chloride BUN 50 H Creatinine 6.0 H Glucose 120 H Ferritin AST ALT Lactate Dehydrogenase 281 H C-Reactive Protein Albumin Urine WBC (Auto) Coronavirus (PCR)
[2021-08-07 11:42] LABS: Calcium 8.6 mg/dL (8.4-10.2)
[2021-08-07] MEDS: DEXAMETHASONE 2 MG TAB PO SCH (11:46)
[2021-08-07] MEDS: HEPARIN 5,000 UNIT/1 ML VIAL SUB-Q SCH ×2 (11:46→23:23)
--- NOTE | 2021-08-07 13:15 | Event Note ---
Date: 08/07/21 discussed with pt's nurse, improved respiratory status. will plan egd/peg tube placement tomorrow AM if able to get consent. stop tube feeds at midnight.
--- NOTE | 2021-08-07 14:31 | Progress Note ---
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 Continue current dexamethasone treatment. Poor candidate for remdesivir secondary to decreased renal function. Respiratory management per primary team. (2) Encephalopathy Current Visit: Yes Status: Chronic Plan to address problem: Overall no significant changes per nursing staff. We will continue to monitor closely. Patient remains essentially nonverbal. (3) Anemia Current Visit: Yes Status: Chronic Qualifiers: Anemia type: due to chronic kidney disease Chronic kidney disease stage: on chronic dialysis Qualified Code(s): N18.6 - End stage renal disease; D63.1 - Anemia in chronic kidney disease; Z99.2 - Dependence on renal dialysis Plan to address problem: BETY therapy with hemodialysis treatments. (4) End stage renal disease Current Visit: Yes Status: Chronic Plan to address problem: Continue on current Friday//Friday hemodialysis schedule. (5) UTI (urinary tract infection) Current Visit: Yes Status: Acute Qualifiers: Urinary tract infection type: acute cystitis Plan to address problem: Patient has completed 5-day course of Rocephin at this time. Subjective Date of service: 08/07/21 Principal diagnosis: respiratory failure, covid, oropharyngeal dysphagia Interval history: No acute events reported. Objective - Exam Narrative Exam: Patient was not directly examined in order to preserve personal protective equipment as well as decrease the risk of transmission of COVID-19 pneumonia. Physical examination from primary team as well as nursing staff reviewed in detail. - Vital Signs Vital signs: Vital Signs - 12hr 08/07/21 08/07/21 08/07/21 04:48 10:00 11:37 Temperature 97.5 F L 97.9 F Pulse Rate 64 97 H Respiratory 16 20 Rate Blood Pressure 136/84 110/78 O2 Sat by Pulse 89 95 89 Oximetry - Lab 07/30/21 06:40 08/07/21 10:39 Most recent lab results Calcium 8.6 mg/dL (8.4-10.2) 08/07/21 10:39 Medications & Allergies - Medications Allergies/Adverse Reactions: Allergies No Known Allergies Allergy (Verified 07/28/21 11:44) Home Medications: Home Medications Medication Instructions Recorded Confirmed Last Taken Type Dexamethasone 6 mg PO DAILY 07/29/21 07/29/21 Unknown History Molnupiravir 400 mg PO BID 07/29/21 07/29/21 Unknown History Vitamin C 500 mg PO DAILY 07/29/21 07/29/21 Unknown History Vitamin D3 1,000 unit PO DAILY 07/29/21 07/29/21 Unknown History Active Medications: Generic Name Dose Route Start Last Admin Trade Name Freq PRN Reason Stop Dose Admin Acetaminophen 650 mg 07/28/21 22:55 07/29/21 06:30 Acetaminophen 325 Mg Tab PO 650 mg Q4H PRN Administration Pain MILD(1-3)/Fever >100.5/VALLE Lipase/Protease/Amylase 1 each 08/02/21 13:53 Lipase 10,500/Protease 25,000/Amylase 43,750 (Units) Dr Michel FEEDTUBE PRN PRN For Clogged Feeding Tube Epoetin Nicholas-epbx 10,000 unit 07/29/21 12:28 08/02/21 18:45 Epoetin Nicholas-Epbx 10,000 Unit/1 Ml Vial IV 10,000 unit ANIL PRN Administration hemodialysis Heparin Sodium (Porcine) 5,000 unit 07/28/21 23:15 08/07/21 11:46 Heparin 5,000 Unit/1 Ml Vial SUB-Q 5,000 unit Q12HR KALEB Administration Sodium Chloride 100 mls @ 999 mls/hr 07/29/21 12:28 Nacl 0.9% IV ANIL PRN Hypotension Morphine Sulfate 2 mg 07/28/21 22:55 Morphine 2 Mg/1 Ml Inj IV Q4H PRN Pain, Moderate (4-6) Ondansetron HCl 4 mg 07/28/21 22:55 Ondansetron 4 Mg/2 Ml Inj IV Q8H PRN Nausea And Vomiting Simple Syrup 15 ml 08/02/21 13:53 Simple Syrup 15 Ml FEEDTUBE PRN PRN Hypoglycemia Simple Syrup 30 ml 08/02/21 13:53 Simple Syrup 15 Ml FEEDTUBE PRN PRN Hypoglycemia Sodium Bicarbonate 325 mg 08/02/21 13:53 Sodium Bicarbonate 325 Mg Tab FEEDTUBE PRN PRN For Clogged Feeding Tube Sodium Chloride 10 ml 07/28/21 23:00 08/07/21 11:46 Sodium Chloride 0.9% 10 Ml Flush Syringe IV 10 ml BID KALEB Administration Sodium Chloride 10 ml 07/28/21 22:55 Sodium Chloride 0.9% 10 Ml Flush Syringe IV PRN PRN LINE FLUSH
--- NOTE | 2021-08-07 15:26 | Progress Note ---
Assessment and Plan Assessment and plan: #Acute hypoxic respiratory failure-resolved -likely secondary to COVID -currently on Venturi mask at 8 L/min; will wean as tolerated -continue dexamethasone and supplemental O2 (last day of steroids 08/07/21) -will wean O2 as tolerated, goal SpO2 >88% -prone patient as able -V/Q Scan and b/l LE dopplers low probability for PE and no DVT respectively -Pulmonology consulted, assistance appreciated #Systemic inflammatory response syndrome-resolved #Urinary tract infection #Gram positive bacteremia #COVID-19 infection -WBC count wnl, tachycardia, tachypnea resolved -Urine WBCs >180, 4+ bacteria, lg LE; treated -COVID PCR positive -BCx 07/28: 02/27 coagulase-negative staph; likely contaminant -BCx 07/30: final result negative -vancomycin discontinued, s/p rocephinx 5 days (completed 08/02) -Infectious Disease consulted, assistance appreciated -inflammatory markers improving #Acute hypotension-resolved -will continue to monitor #End stage renal disease requiring HD -HD on TTS schedule -HD per Nephrology -Nephrology following, assistance appreciated #Hyperkalemia-->resolved -Potassium 5.2 -Will receive 1 dose of Kayexalate today -We will continue to monitor, likely will be addressed with K bath during HD #Anemia-stable -likely secondary to ESRD -epogen with dialysis -will transfuse for Hgb less than 7 #History of dementia #History of Parkinson's disease #Neurogenic dysphagia -continue with tube feeds -Discussed with daughter, GI consulted for evaluation for PEG tube; plan for PEG tube/EGD on Friday on 08/08 -Follow-up with neurology outpatient #Advanced care planning -Disease education, care plan, diagnosis, prognosis discussed with next of kin, daughter Selena Mena. Family understands and acknowledges current plan. -Time: +30 minutes Disposition Plan: Continue to medically manage Total Time Spent with Patient (Minutes): 45 min History Interval history: No acute events overnight. Hospitalist Physical - Constitutional Vitals: Temp Pulse Resp BP Pulse Ox 97.9 F 97 H 20 110/78 89 08/07/21 11:37 08/07/21 11:37 08/07/21 11:37 08/07/21 11:37 08/07/21 11:37 General appearance: Present: no acute distress, well-nourished - EENT Eyes: Present: PERRL, EOM intact ENT: hearing intact, clear oral mucosa, dentition normal, other (NGT in place) - Neck Neck: Present: supple - Respiratory Respiratory effort: normal Respiratory: bilateral: diminished - Cardiovascular Rhythm: regular Heart Sounds: Present: S1 & S2 - Extremities Extremities: no ischemia, pulses intact, pulses symmetrical, No edema, normal temperature, normal color Peripheral Pulses: within normal limits - Abdominal General gastrointestinal: soft, non-tender, non-distended, normal bowel sounds - Integumentary Integumentary: Present: clear, warm, dry - Psychiatric Psychiatric: other (unable to fully assess) - Neurologic Neurologic: other (unable to fully assess) - Allied Health Allied health notes reviewed: nursing Results - Labs CBC & Chem 7: 07/30/21 06:40 08/07/21 10:39 Labs: Laboratory Last Values WBC 9.0 K/mm3 (4.5-11.0) 07/30/21 06:40 RBC 2.75 M/mm3 (3.65-5.03) L 07/30/21 06:40 Hgb 9.1 gm/dl (10.1-14.3) L 07/30/21 06:40 Hct 27.5 % (30.3-42.9) L 07/30/21 06:40 MCV 100 fl (79-97) H 07/30/21 06:40 MCH 33 pg (28-32) H 07/30/21 06:40 MCHC 33 % (30-34) 07/30/21 06:40 RDW 13.9 % (13.2-15.2) 07/30/21 06:40 Plt Count 170 K/mm3 (140-440) 07/30/21 06:40 Lymph % (Auto) 9.9 % (13.4-35.0) L 07/29/21 06:37 [place] % (Auto) 6.3 % (0.0-7.3) 07/29/21 06:37 Eos % (Auto) 0.0 % (0.0-4.3) 07/29/21 06:37 Baso % (Auto) 0.4 % (0.0-1.8) 07/29/21 06:37 Lymph # (Auto) 0.6 K/mm3 (1.2-5.4) L 07/29/21 06:37 [place] # (Auto) 0.4 K/mm3 (0.0-0.8) 07/29/21 06:37 Eos # (Auto) 0.0 K/mm3 (0.0-0.4) 07/29/21 06:37 Baso # (Auto) 0.0 K/mm3 (0.0-0.1) 07/29/21 06:37 Seg Neutrophils % 83.4 % (40.0-70.0) H 07/29/21 06:37 Seg Neutrophils # 5.3 K/mm3 (1.8-7.7) 07/29/21 06:37 APTT 36.7 Sec. (24.2-36.6) H 07/28/21 12:20 D-Dimer 549.41 ng/mlDDU (0-234) H 08/05/21 06:21 Sodium 139 mmol/L (137-145) 08/07/21 10:39 Potassium 4.4 mmol/L (3.6-5.0) 08/07/21 10:39 Chloride 96.5 mmol/L (98-107) L 08/07/21 10:39 Carbon Dioxide 30 mmol/L (22-30) 08/07/21 10:39 Anion Gap 17 mmol/L 08/07/21 10:39 BUN 77 mg/dL (7-17) H 08/07/21 10:39 Creatinine 7.2 mg/dL (0.6-1.2) H 08/07/21 10:39 Estimated GFR 7 ml/min 08/07/21 10:39 BUN/Creatinine Ratio 11 % 08/07/21 10:39 Glucose 99 mg/dL (65-100) 08/07/21 10:39 POC Glucose 100 mg/dL (70-105) 08/06/21 11:38 Lactic Acid 1.40 mmol/L (0.7-2.0) 07/28/21 12:20 Calcium 8.6 mg/dL (8.4-10.2) 08/07/21 10:39 Ferritin 1695.0 ng/mL (10.0-200.0) H 08/05/21 06:21 Total Bilirubin 0.20 mg/dL (0.1-1.2) 08/01/21 05:54 AST 44 units/L (5-40) H 08/01/21 05:54 ALT 10 units/L (7-56) 08/01/21 05:54 Alkaline Phosphatase 60 units/L (35-129) 08/01/21 05:54 Lactate Dehydrogenase 281 units/L (91-180) H 08/05/21 06:21 C-Reactive Protein 4.20 mg/dL (0.00-1.30) H 07/31/21 12:13 Total Protein 6.7 g/dL (6.3-8.2) 08/01/21 05:54 Albumin 3.3 g/dL (3.9-5) L 08/01/21 05:54 Albumin/Globulin Ratio 1.0 % 08/01/21 05:54 Urine Color Yellow (Yellow) 07/28/21 Unknown Urine Turbidity Turbid (Clear) 07/28/21 Unknown Urine pH 6.0 (5.0-7.0) 07/28/21 Unknown Ur Specific [place] 1.014 (1.003-1.030) 07/28/21 Unknown Urine Protein 100 mg/dl mg/dL (Negative) 07/28/21 Unknown Urine Glucose (UA) Neg mg/dL (Negative) 07/28/21 Unknown Urine Ketones Tr mg/dL (Negative) 07/28/21 Unknown Urine Blood Sm (Negative) 07/28/21 Unknown Urine Nitrite Neg (Negative) 07/28/21 Unknown Urine Bilirubin Neg (Negative) 07/28/21 Unknown Urine Urobilinogen < 2.0 mg/dL (<2.0) 07/28/21 Unknown Ur Leukocyte Esterase Lg (Negative) 07/28/21 Unknown Urine WBC (Auto) > 182.0 /HPF (0.0-6.0) H 07/28/21 Unknown Urine RBC (Auto) 10.0 /HPF (0.0-6.0) 07/28/21 Unknown Urine Bacteria (Auto) 4+ /HPF (Negative) 07/28/21 Unknown Urine WBC Clumps 3+ /HPF 07/28/21 Unknown Random Vancomycin 19.4 ug/mL (0-40.0) 07/31/21 05:27 Coronavirus (PCR) Positive (Negative) A 08/07/21 09:30 Hepatitis A IgM Ab Non-reactive (NonReactive) 07/30/21 09:03 Hep Bs Antigen Non-reactive (Negative) 07/30/21 09:03 Hep B Core IgM Ab Non-reactive (NonReactive) 07/30/21 09:03 Hepatitis C Antibody Non-reactive (NonReactive) 07/30/21 09:03 Muniz/IV: Voiding Method Incontinent Active Medications - Current Medications Current Medications: Generic Name Dose Route Start Last Admin Trade Name Freq PRN Reason Stop Dose Admin Acetaminophen 650 mg 07/28/21 22:55 07/29/21 06:30 Acetaminophen 325 Mg Tab PO 650 mg Q4H PRN Administration Pain MILD(1-3)/Fever >100.5/VALLE Lipase/Protease/Amylase 1 each 08/02/21 13:53 Lipase 10,500/Protease 25,000/Amylase 43,750 (Units) Dr Cap FEEDTUBE PRN PRN For Clogged Feeding Tube Epoetin Nicholas-epbx 10,000 unit 07/29/21 12:28 08/02/21 18:45 Epoetin Nicholas-Epbx 10,000 Unit/1 Ml Vial IV 10,000 unit ANIL PRN Administration hemodialysis Heparin Sodium (Porcine) 5,000 unit 07/28/21 23:15 08/07/21 11:46 Heparin 5,000 Unit/1 Ml Vial SUB-Q 5,000 unit Q12HR KALEB Administration Sodium Chloride 100 mls @ 999 mls/hr 07/29/21 12:28 Nacl 0.9% IV ANIL PRN Hypotension Morphine Sulfate 2 mg 07/28/21 22:55 Morphine 2 Mg/1 Ml Inj IV Q4H PRN Pain, Moderate (4-6) Ondansetron HCl 4 mg 07/28/21 22:55 Ondansetron 4 Mg/2 Ml Inj IV Q8H PRN Nausea And Vomiting Simple Syrup 15 ml 08/02/21 13:53 Simple Syrup 15 Ml FEEDTUBE PRN PRN Hypoglycemia Simple Syrup 30 ml 08/02/21 13:53 Simple Syrup 15 Ml FEEDTUBE PRN PRN Hypoglycemia Sodium Bicarbonate 325 mg 08/02/21 13:53 Sodium Bicarbonate 325 Mg Tab FEEDTUBE PRN PRN For Clogged Feeding Tube Sodium Chloride 10 ml 07/28/21 23:00 08/07/21 11:46 Sodium Chloride 0.9% 10 Ml Flush Syringe IV 10 ml BID KALEB Administration Sodium Chloride 10 ml 07/28/21 22:55 Sodium Chloride 0.9% 10 Ml Flush Syringe IV PRN PRN LINE FLUSH Nutrition/Malnutrition Assess - Dietary Evaluation Nutrition/Malnutrition Findings: Nutrition Notes Start: 07/29/21 15:43 Freq: Status: Active Protocol: Document 08/03/21 11:30 MAGDALENO (Rec: 08/03/21 11:38 MAGDALENO [id number]) Nutrition Notes Initial or Follow up Brief Note Current Diagnosis CKD (stage V CKD),Hypertension ,Respiratory Failure Other Pertinent Diagnosis ESRD+HD, UTI, Anemia, COVID-19 , SIRS, Hypotension, Encephalopathy, Demen... Current Diet TF-Nepro w/CARBSTEADY @ 35 ml/ hr (from D 08/02). Height 5 ft 4 in Weight 58 kg [place] Body Weight (kg) 54.54 BMI 21.9 Weight change and time frame No body weight change reported in 5 days. Weight Status Appropriate Subjective/Other Information RD consult for routine F/u on TF tolerance.continuation assessment. TF continues as prescribed, and well tolerated, according to RN notes. Pt is on Venturi Mask+, O2 saturation @ 96%, according to Physical Assessment History notes. Percent of energy/protein needs met: Prescribed TF-Nepro w/ CARBSTEADY @ 35 ml/hr provides for energy/protein needs (1, 508 Kcal/68 g) during LOS; 100 % Kcal; 97% AA. #1 Nutrition Diagnosis Inadequate protein-energy intake Comments: Prescribed TF-Nepro w/ CARBSTEADY @ 35 ml/hr provides for energy/protein needs (1, 508 Kcal/68 g) during LOS; 100 % Kcal; 97% AA. Diagnosis Progress(for reassessment Resolved documentation) Is patient on ventilator? No Is Patient Ambulatory and/or Out of Bed No REE-([facility]-confined to bed) 1308.024 Kcal/Kg value to use for calculation 26 Approximate Energy Requirements Using 1508 kcal/Kg Calculation Used for Recommendations Kcal/kg Additional Notes Protein: >1.2 g/Kg ABW; >70 g/ day. Fluids: 1 ml/Kcal, or as per MD. Nutrition Intervention Nutrition Support: Continue TF-Nepro w/CARBSTEADY @ 35 ml/hr. Flush: 150 ml water Q 4 hr, or as per MD. Kcal 1,508 Protein (gm) 68 Carbohydrates (gm) 135 Fat (gm) 80 Fluid (mL) 609 Fiber (gm) 11 % RDI: 100% Kcal; 97% AA. Goal #1 Provide at least 75% of energy /protein needs through Enteral Feeding during LOS. Goal #2 Maintain body weight within +/ -3% of admission body weight during LOS. Follow-Up By: 08/10/21 Additional Comments Continue monitoring TF tolerance and BM.
[2021-08-08 06:46] LABS: Basophils % (Auto) 0.1 % (0.0-1.8); Eosinophils % (Auto) 0.4 % (0.0-4.3); Hematocrit 24.1 % (30.3-42.9); Hemoglobin 7.8 gm/dl (10.1-14.3); Lymphocytes # (Auto) 0.8 K/mm3 (1.2-5.4); Lymphocytes % (Auto) 11.7 % (13.4-35.0); Mean Corpuscular HGB Conc 32 % (30-34); Mean Corpuscular Volume 99 fl (79-97); Monocytes # (Auto) 0.5 K/mm3 (0.0-0.8); Monocytes % (Auto) 8.1 % (0.0-7.3); Platelet Count 232 K/mm3 (140-440); Red Blood Count 2.45 M/mm3 (3.65-5.03); Red Cell Distribution Width 15.1 % (13.2-15.2)
[2021-08-08 07:00] LABS: INR 0.86 (0.87-1.13)
[2021-08-08 07:01] LABS: Calcium 8.4 mg/dL (8.4-10.2)
[2021-08-08] MEDS ORDERED: fentaNYL 100 MCG/2 ML INJ ONE (07:46)
[2021-08-08] MEDS ORDERED: propofoL 200 MG/20 ML VIAL IV ONE (07:46)
[2021-08-08] MEDS ORDERED: LIDOCAINE MPF (2%) 20 MG/1 ML VIAL 5 ML ONE (07:47)
[2021-08-08] MEDS ORDERED: WATER FOR IRRIG STERILE 250 ML BOTTLE IR ONE (08:05)
[2021-08-08] MEDS ORDERED: SODIUM CHLORIDE 0.9% 1000 ML 1,000 ML ONE (08:05)
[2021-08-08] MEDS ORDERED: WATER FOR IRRIG STERILE 1,000 ML BOTTLE ONE (08:05)
[2021-08-08] MEDS ORDERED: ceFAZolin/Water 2 GM/20 ML 2 GM/20 ML SYRINGE IV ONE (08:06)
[2021-08-08] MEDS ORDERED: ceFAZolin/STERILE WATER 2 GM/20 ML SYRINGE IV ONE (08:45)
--- NOTE | 2021-08-08 09:11 | Anesthesia Day of Surgery ---
Anesthesia Day of Surgery - Day of Surgery Patient Examined: Yes Patient H&P Reviewed: Yes Patient is NPO: Yes Beta Blockers: No Cardiac Clearance: No Pulmonary Clearance: No Rolando's Test: N/A
--- NOTE | 2021-08-08 09:13 | Anesthesia Consultation ---
Anesthesia Consult and Med Hx Date of service: 08/08/21 - Airway Anesthetic Teeth Evaluation: Poor, Edentulous ROM Head & Neck: Inadequate Mental/Hyoid Distance: Adequate Mallampati Class: Class IV Intubation Access Assessment: Possibly Difficult - Pulmonary Exam CTA: No (junky) - Cardiac Exam Cardiac Exam: RRR - Pre-Operative Health Status ASA Pre-Surgery Classification: ASA4 Proposed Anesthetic Plan: MAC - Pulmonary Hx Smoking: No Hx Asthma: No Hx Respiratory Symptoms: Yes (covid+) SOB: Yes COPD: Yes Home Oxygen Therapy: No Hx Pneumonia: Yes Hx Sleep Apnea: No - Cardiovascular System Hx Hypertension: Yes Hx Heart Attack/AMI: No Hx Angina: No - Central Nervous System Hx Psychiatric Problems: Yes - Gastrointestinal Hx Gastroesophageal Reflux Disease: Yes (gastroparesis) - Endocrine Hx Renal Disease: Yes Hx End Stage Renal Disease: Yes
[2021-08-08] MEDS ORDERED: LACTATED RINGERS 1,000 ML IV SCH (09:15)
--- NOTE | 2021-08-08 09:15 | Operative Report ---
Operative Report Operative Report: Esophagogastroduodenoscopy Procedure Note with PEG tube placement Date of procedure: 08/08/2021 Endoscopist: Truong Mejia Pre-op diagnosis/indication: Oropharyngeal dysphagia Post-op diagnosis: Successful PEG tube placement, marleny esophagitis, retained tube feeds in duodenum/stomach MEDICATIONS: MAC, ancef 2 grams COMPLICATIONS: No immediate complications ESTIMATED BLOOD LOSS: Minimal DESCRIPTION OF PROCEDURE: After consent was obtained from the patient's daughter, the patient was placed in the supine position. The olympus endoscope was inserted into the patient's mouth under direct vision and advanced to the 2nd portion of the duodenum without difficulty. The patient tolerated the procedure well. The views of the mucosa were very limited in the duodenum and parts of the stomach due to retained tube feeds. The patient's vital signs were monitored continuously throughout the procedure. The stomach was transilluminated and an optimal position for the PEG tube was identified using the single poke method. The skin was infiltrated with local lidocaine, followed by a small incision. The needle and sheath were inserted through the abdomen into the stomach under direct visualization. The needle was removed and a guidewire was inserted through the sheath. The guidewire was gras ped from above with a snare. It was removed completely and the 20 Fr PEG tube was secured to the guidewire. The guidewire and PEG tube were then pulled through the mouth and esophagus and snug to the abdominal wall. The endoscope was re-inserted which showed good positioning of the internal bumper. The external bumper was at 2 cm at the end of the procedure. FINDINGS: There were white nummular lesions in the esophagus consistent with marleny esophagitis. There was retained tube feeds in the gastric fundus and throughout the duodenum which highly interfered with visualization. PEG tube was successfully placed as above. IMPRESSION: 1. Successful PEG tube placement 2. Marleny esophagitis 3. Retained tube feeds RECOMMENDATIONS: -can use peg tube for medications after 2 hours, and for tube feeds after 6 hours if no new symptoms. tube feedings per nutrition recommendations -post PEG care daily -course of fluconazole for 2 weeks for marleny esophagitis -will follow-up tomorrow
[2021-08-08] MEDS: HEPARIN 5,000 UNIT/1 ML VIAL SUB-Q SCH ×2 (10:38→22:07)
--- NOTE | 2021-08-08 12:38 | Progress Note ---
Assessment and Plan 70 y/o female originally admitted for sirs, now found to be covid positive and in acute respiratory failure after having hypotension and fluid resuscitation. 08/08/21: Pulm status appears stable. Continue current therapy. No recent doc umentation by RT. Was on room air last night. Will see as needed. 08/07/21: Should be able to wean off oxygen. HD per renal. Steroids end today. Keep patient as dry as possible. Peg tomorrow. 08/06/21: Continue to wean FiO2 for sats greater than 88%. Steroids end tomorrow. V/Q was low prob. Guarded prognosis. 08/03/21: Same recs as before. My partner is rounding this weekend and see at least once this weekend. 08/02/21: Continue to prone as tolerated. Steroids. Wean FiO2 for sats >88%. Assess for PE. HD per renal. Guarded prognosis. 08/01/21: Will need to discusss with renal but given this acute change in oxygen requirement but no real change on CXR, need to consider CTA to rule out pulmonary embolism as having COVID does make you prone to VTE. Would not treat empirically. If renal ok and can dialyze the next day would obtain CTA to assess for PE 1. Repeat CXR now 2. Agree with steroids 3. Not a candidate for remdesivir but would ask ID if she meets actemra criter ia 4. Keep sats >88% 5. If cXR shows worsening volume status, will ask renal if able to pull more fluid now that hypotension has resolved 6. Encourage patient to prone as long as tolerated 7. Guarded prognosis given ESRD on HD Subjective Date of service: 08/08/21 Principal diagnosis: respiratory failure, covid, oropharyngeal dysphagia Interval history: Peg placed today without pulmonary compromise Objective Vital Signs - 12hr 08/08/21 08/08/21 08/08/21 05:18 08:30 09:04 Temperature 98.3 F 98 F 98.1 F Pulse Rate 80 94 H 98 H Respiratory 16 14 17 Rate Blood Pressure 101/64 107/66 136/97 O2 Sat by Pulse 93 96 100 Oximetry 08/08/21 08/08/21 08/08/21 09:09 09:14 09:24 Temperature Pulse Rate 102 H 104 H 102 H Respiratory 17 Rate Blood Pressure 140/91 144/99 133/89 O2 Sat by Pulse 100 100 97 Oximetry 08/08/21 08/08/21 08/08/21 09:34 09:44 10:00 Temperature Pulse Rate 100 H 98 H Respiratory 20 20 18 Rate Blood Pressure 123/83 117/72 O2 Sat by Pulse 92 98 95 Oximetry 08/08/21 11:38 Temperature 97.3 F L Pulse Rate 95 H Respiratory 16 Rate Blood Pressure 119/76 O2 Sat by Pulse 98 Oximetry Constitutional: no acute distress, alert, other (on vent mask) Eyes: non-icteric ENT: oropharynx moist Neck: supple Effort: normal Ascultation: Bilateral: rhonchi Cardiovascular: regular rate and rhythm Gastrointestinal: normoactive bowel sounds, soft, non-tender, non-distended Extremities: no cyanosis Neurologic: other (non verbal. opens eyes to tactile stimuli.) CBC and BMP: 08/08/21 06:04 08/08/21 06:04 ABG, PT/INR, D-dimer: PT/INR, D-dimer PT 12.6 Sec. (12.2-14.9) 08/08/21 06:04 INR 0.86 (0.87-1.13) L 08/08/21 06:04 D-Dimer 549.41 ng/mlDDU (0-234) H 08/05/21 06:21 Abnormal lab findings: Abnormal Labs 07/28/21 07/28/21 07/28/21 12:20 12:20 12:20 WBC 3.4 L RBC 2.80 L Hgb 9.1 L Hct 28.4 L MCV 102 H MCH 33 H Plt Count 132 L Lymph % (Auto) [place] % (Auto) 10.4 H Lymph # (Auto) 0.6 L Seg Neutrophils % 72.1 H INR APTT 36.7 H D-Dimer Sodium Potassium Chloride 95.7 L BUN 37 H Creatinine 8.3 H Glucose POC Glucose Ferritin AST ALT < 5 L Lactate Dehydrogenase C-Reactive Protein Albumin Urine WBC (Auto) Coronavirus (PCR) 07/28/21 07/29/21 07/30/21 Unknown 06:37 06:40 WBC RBC 2.55 L 2.75 L Hgb 8.5 L 9.1 L Hct 25.8 L 27.5 L MCV 101 H 100 H MCH 33 H 33 H Plt Count 123 L Lymph % (Auto) 9.9 L [place] % (Auto) Lymph # (Auto) 0.6 L Seg Neutrophils % 83.4 H INR APTT D-Dimer Sodium Potassium Chloride BUN Creatinine Glucose POC Glucose Ferritin AST ALT Lactate Dehydrogenase C-Reactive Protein Albumin Urine WBC (Auto) > 182.0 H Coronavirus (PCR) 07/30/21 07/30/21 07/31/21 06:40 Unknown 12:13 WBC RBC Hgb Hct MCV MCH Plt Count Lymph % (Auto) [place] % (Auto) Lymph # (Auto) Seg Neutrophils % INR APTT D-Dimer 750.30 H Sodium Potassium Chloride BUN 54 H Creatinine 10.0 H Glucose POC Glucose Ferritin AST ALT Lactate Dehydrogenase C-Reactive Protein Albumin Urine WBC (Auto) Coronavirus (PCR) Positive A 07/31/21 07/31/21 08/01/21 12:13 12:13 05:54 WBC RBC Hgb Hct MCV MCH Plt Count Lymph % (Auto) [place] % (Auto) Lymph # (Auto) Seg Neutrophils % INR APTT D-Dimer Sodium Potassium 3.4 L D Chloride BUN 24 H Creatinine 5.1 H Glucose POC Glucose Ferritin 2182.0 H AST 44 H ALT Lactate Dehydrogenase 233 H C-Reactive Protein 4.20 H Albumin 3.3 L Urine WBC (Auto) Coronavirus (PCR) 08/04/21 08/05/21 08/05/21 05:34 06:21 06:21 WBC RBC Hgb Hct MCV MCH Plt Count Lymph % (Auto) [place] % (Auto) Lymph # (Auto) Seg Neutrophils % INR APTT D-Dimer 549.41 H Sodium Potassium Chloride BUN 39 H Creatinine 6.5 H Glucose 145 H POC Glucose Ferritin 1695.0 H AST ALT Lactate Dehydrogenase C-Reactive Protein Albumin Urine WBC (Auto) Coronavirus (PCR) 08/05/21 08/06/21 08/07/21 06:21 05:52 09:30 WBC RBC Hgb Hct MCV MCH Plt Count Lymph % (Auto) [place] % (Auto) Lymph # (Auto) Seg Neutrophils % INR APTT D-Dimer Sodium Potassium 5.2 H D Chloride BUN 50 H Creatinine 6.0 H Glucose 120 H POC Glucose Ferritin AST ALT Lactate Dehydrogenase 281 H C-Reactive Protein Albumin Urine WBC (Auto) Coronavirus (PCR) Positive A 08/07/21 08/08/21 08/08/21 10:39 00:08 06:04 WBC RBC Hgb Hct MCV MCH Plt Count Lymph % (Auto) [place] % (Auto) Lymph # (Auto) Seg Neutrophils % INR 0.86 L APTT D-Dimer Sodium Potassium Chloride 96.5 L BUN 77 H Creatinine 7.2 H Glucose POC Glucose 107 H Ferritin AST ALT Lactate Dehydrogenase C-Reactive Protein Albumin Urine WBC (Auto) Coronavirus (PCR) 08/08/21 08/08/21 06:04 06:04 WBC RBC 2.45 L Hgb 7.8 L Hct 24.1 L MCV 99 H MCH Plt Count Lymph % (Auto) 11.7 L [place] % (Auto) 8.1 H Lymph # (Auto) 0.8 L Seg Neutrophils % 79.7 H INR APTT D-Dimer Sodium 136 L Potassium Chloride 97.4 L BUN 69 H Creatinine 6.3 H Glucose POC Glucose Ferritin AST ALT Lactate Dehydrogenase C-Reactive Protein Albumin Urine WBC (Auto) Coronavirus (PCR)
--- NOTE | 2021-08-08 13:34 | Discharge Summary ---
Providers - Providers Date of Admission: 07/29/21 00:24 Date of discharge: 08/08/21 Attending physician: PABLO BEDOYA MD 07/29/21 03:35 Consult to Dietitian/Nutrition [CONS] Routine Physician Instructions: Reason For Exam: Reason for Consult: poor appetite 07/29/21 06:41 Consult to Physician [CONS] Routine Comment: Consulting Provider: MARY SIMMONS Physician Instructions: Reason For Exam: ESRD 07/31/21 08:17 Consult to Physician [CONS] Routine Comment: Consulting Provider: YASMANI TORRES Physician Instructions: Reason For Exam: COVID infection 07/31/21 09:23 Consult to Physician [CONS] Routine Comment: Consulting Provider: TANYA LOPEZ Physician Instructions: Reason For Exam: respiratory failure 03/28 COVID 08/02/21 09:31 Speech Therapy Evaluation and Treat [CONS] Routine Reason For Exam: evaluate swallowing 08/02/21 13:53 Consult to Dietitian/Nutrition [CONS] Routine Physician Instructions: Assess nutrtn needs, initiate, modify, manage TF Reason For Exam: Reason for Consult: Write/Manage Tube Feeding Reason for Consult: Write/Manage Tube Feeding 08/03/21 08:45 Consult to Physician [CONS] Routine Comment: Consulting Provider: KHADRA AVILA Physician Instructions: Reason For Exam: PEG tube placement assessment Primary care physician: SANTA DYER Hospitalization Reason for admission: SIRS, acute hypoxic respiratory failure Condition: Stable Pertinent studies: Reviewed. Procedures: PEG tube placement by gastroenterology Hospital course: Patient is a 70-year-old female past medical history of end-stage renal disease on hemodialysis, hypertension, advanced dementia, and Parkinson's disease who presented from her hemodialysis center with hypotension. The patient is not communicative at baseline. In the ED, the patient was found to have a blood pressure of approximately 70/40 and acute cystitis. The patient was started on IV antibiotics and given IV fluid resuscitation. The patient later developed acute hypoxic respiratory failure that was found to be secondary to COVID-19 on 07/30/2021. Blood cultures revealed gram-positive bacteremia, and infectious disease was consulted for further management. It was later deemed that the blood positive bacteremia was found to be a likely contaminant. Due to the patient's neurogenic dysphagia, the decision was made to have a PEG tube placed by gastroenterology on 08/08/2021. Patient is medically clear for discharge. Disposition: 01 HOME / SELF CARE / HOMELESS Final Discharge Diagnosis (Prints w/discharge instructions): Acute hypoxic respiratory failure, systemic inflammatory response syndrome, acute cystitis without hematuria, COVID-19 infection/COVID-pneumonia, acute hypotension, end- stage renal disease on hemodialysis, hyperkalemia, anemia of chronic disease, dementia, Parkinson's disease, dysphagia Time spent for discharge: 45 minutes Core Measure Documentation - Palliative Care Palliative Care/ Comfort Measures: Not Applicable - Core Measures Any of the following diagnoses?: none Exam - Constitutional Vitals: Temp Pulse Resp BP Pulse Ox 97.3 F L 95 H 16 119/76 98 08/08/21 11:38 08/08/21 11:38 08/08/21 11:38 08/08/21 11:38 08/08/21 11:38 General appearance: Present: no acute distress, well-nourished - EENT Eyes: Present: PERRL, EOM intact ENT: hearing intact, clear oral mucosa - Neck Neck: Present: supple, normal ROM - Respiratory Respiratory effort: normal Respiratory: bilateral: diminished - Cardiovascular Rhythm: regular Heart Sounds: Present: S1 & S2 - Extremities Extremities: no ischemia, pulses intact, pulses symmetrical, No edema, normal temperature, normal color Peripheral Pulses: within normal limits - Abdominal General gastrointestinal: Present: soft, non-tender, non-distended, normal bowel sounds, other (Newly placed PEG tube) Female genitourinary: Present: deferred - Rectal Rectal Exam: deferred - Integumentary Integumentary: Present: clear, warm, dry - Musculoskeletal Musculoskeletal: generalized weakness - Psychiatric Psychiatric: appropriate mood/affect - Neurologic Neurologic: CNII-XII intact - Allied Health Allied health notes reviewed: nursing Plan Activity: no restrictions Diet: low salt, renal Additional Instructions: Patient is a 70-year-old female past medical history of end-stage renal disease on hemodialysis, hypertension, advanced dementia, and Parkinson's disease who presented from her hemodialysis center with hypotension. The patient is not communicative at baseline. In the ED, the patient was found to have a blood pressure of approximately 70/40 and acute cystitis. The patient was started on IV antibiotics and given IV fluid resuscitation. The patient later developed acute hypoxic respiratory failure that was found to be secondary to COVID-19 on 07/30/2021. Blood cultures revealed gram-positive bacteremia, and infectious disease was consulted for further management. It was later deemed that the blood positive bacteremia was found to be a likely contaminant. Due to the patient's neurogenic dysphagia, the decision was made to have a PEG tube placed by gastroenterology on 08/08/2021. Patient is medically clear for discharge. Care Plan Goals: Patient is medically clear for discharge. Assessment: Patient is a 70-year-old female past medical history of end-stage renal disease on hemodialysis, hypertension, advanced dementia, and Parkinson's disease who presented from her hemodialysis center with hypotension. The patient is not communicative at baseline. In the ED, the patient was found to have a blood pressure of approximately 70/40 and acute cystitis. The patient was started on IV antibiotics and given IV fluid resuscitation. The patient later developed acute hypoxic respiratory failure that was found to be secondary to COVID-19 on 07/30/2021. Blood cultures revealed gram-positive bacteremia, and infectious disease was consulted for further management. It was later deemed that the blood positive bacteremia was found to be a likely contaminant. Due to the patient's neurogenic dysphagia, the decision was made to have a PEG tube placed by gastroenterology on 08/08/2021. Patient is medically clear for discharge. Follow up with: SANTA DYER MD [Primary Care Provider] - 3-5 Days
--- NOTE | 2021-08-08 16:03 | Post Anesthesia Evaluation ---
- Post Anesthesia Evaluation Patient Participated: Yes Airway Patent: Yes Stable Respiratory Function: Yes Nausea/Vomiting: No Temp > 96.8F: Yes Pain Manageable: Yes Adequeate Hydration: Yes Anesthesia Complications: No Block Receding Appropriately: Not Applicable Patient on Ventilator: No
[2021-08-08 22:17] VITALS: BP 102/66
[2021-08-08] MEDS: ACETAMINOPHEN 325 MG TAB PO PRN (22:20)
== END 2021-08-09 02:06 | DRG 177 ==
LOC: ED 11:28 → 4A 07-29 00:24 → 3A 07-29 03:54
PROVIDERS: ADMIT Internal Medicine; ATTEND Student in an Organized Health Care Education/Training Program
PROC: 5A1D70Z Performance of Urinary Filtration, Intermittent, Less than 6 Hours Per Day (ICD-10-PCS; principal; 2021-07-31)
PROC: 5A1D70Z Performance of Urinary Filtration, Intermittent, Less than 6 Hours Per Day (ICD-10-PCS; 2021-08-02)
PROC: 5A1D70Z Performance of Urinary Filtration, Intermittent, Less than 6 Hours Per Day (ICD-10-PCS; 2021-08-04)
PROC: 5A1D70Z Performance of Urinary Filtration, Intermittent, Less than 6 Hours Per Day (ICD-10-PCS; 2021-08-07)
PROC: 0DH63UZ Insertion of Feeding Device into Stomach, Percutaneous Approach (ICD-10-PCS; 2021-08-08)
DX: U07.1 COVID-19 (principal); N18.6 End stage renal disease; J96.01 Acute respiratory failure with hypoxia; J12.82 Pneumonia due to coronavirus disease 2019; R65.10 Systemic inflammatory response syndrome (SIRS) of non-infectious origin without acute organ dysfunction; G93.49 Other encephalopathy; R78.81 Bacteremia; I12.0 Hypertensive chronic kidney disease with stage 5 chronic kidney disease or end stage renal disease; N30.00 Acute cystitis without hematuria; B37.81 Candidal esophagitis; R82.81 Pyuria; I95.9 Hypotension, unspecified; B95.7 Other staphylococcus as the cause of diseases classified elsewhere; Z99.2 Dependence on renal dialysis; F03.90 Unspecified dementia, unspecified severity, without behavioral disturbance, psychotic disturbance, mood disturbance, and anxiety; G20 Parkinson's disease; D63.1 Anemia in chronic kidney disease; E87.6 Hypokalemia; R13.19 Other dysphagia; E87.5 Hyperkalemia; J44.9 Chronic obstructive pulmonary disease, unspecified; K21.9 Gastro-esophageal reflux disease without esophagitis; Z82.49 Family history of ischemic heart disease and other diseases of the circulatory system
CPT/HCPCS: 36415; 71045; 74018; 74176; 78580; 80048; 80053; 80074; 80202; 81001; 82140; 82728; 82962; 83615; 85025; 85027; 85379; 85610; 85730; 86140; 87040; 93970; 94760; G0378; A9540; J0690; J0696; J0885; J1644; J2704; J3010; J3370; J7030; J7050; J8540; U0003